=== PATIENT | male | born 1940 | race Caucasian/White ===

== ENCOUNTER 2016-11-05 15:44 | Emergency (ER) | payer MEDICARE ==
[2016-11-05 17:25] VITALS: TEMP 97
[2016-11-05] MEDS ORDERED: ONDANSETRON 4 MG/2 ML VIAL IVP STA (18:23)
[2016-11-05] MEDS ORDERED: SODIUM CHLORIDE 0.9% 1,000 ML IV STA (18:23)
[2016-11-05] MEDS ORDERED: HYDROmorphone 1 MG/ML 1 ML SYRINGE IVP STA ×2 (18:23→20:49)
--- NOTE | 2016-11-05 18:25 | ED ---
General Adult HPI - General Source: patient, RN notes reviewed Mode of arrival: ambulatory <Stephan Carroll - Last Filed: 11/05/16 18:24> <Jl Chaney - Last Filed: 11/05/16 20:47> - General Chief complaint: Abdominal Pain Stated complaint: left side pain Time Seen by Provider: 11/05/16 18:11 - History of Present Illness Initial comments: Patient is 75-year-old male who presents emergency room today with a chief complaint of abdominal pain that started yesterday morning. He does admit that he's felt more distended. He states that he has not had a bowel movement. He states he's had decreased flatulence. Patient currently rates pain 7/10 located left lower quadrant. He denies any other complaints. States never had some symptoms in the past. Patient denies any recent fever, chills, shortness of breath, chest pain, back pain, nausea or vomiting, numbness or tingling, dysuria or hematuria, constipation, headaches or visual changes, or any other complaints. (Stephan Carroll) - Related Data Home Medications Medication Instructions Recorded Confirmed Fluticasone/Salmeterol [Advair 1 puff INHALATION RT-BID 12/22/14 11/05/16 100-50 Diskus] Aspirin EC [Ecotrin Low Dose] 81 mg PO DAILY 11/05/16 11/05/16 Multivitamins, Thera [Multivitamin] 1 tab PO DAILY 11/05/16 11/05/16 Omeprazole 20 mg PO DAILY 11/05/16 11/05/16 Piroxicam 20 mg PO W/SUPPER 11/05/16 11/05/16 Testosterone Cypionate 250 mg IM Q42D 11/05/16 11/05/16 [Depo-Testosterone] metFORMIN HCL [Glucophage] 850 mg PO BID-W/MEALS 11/05/16 11/05/16 Previous Rx's Medication Instructions Recorded Hydrocodone/Acetaminophen [[place] 1 tab PO Q6HR PRN #20 tab 11/05/16 5-325] Ondansetron Odt [Zofran Odt] 4 mg PO Q8HR PRN #10 tab 11/05/16 Tamsulosin [Flomax] 0.4 mg PO DAILY #7 cap 11/05/16 Allergies Allergy/AdvReac Type Severity Reaction Status Date / Time No Known Allergies Allergy Verified 11/05/16 19:41 Review of Systems ROS Other: All systems not noted in ROS Statement are negative. <Stephan Carroll - Last Filed: 11/05/16 18:24> ROS Other: All systems not noted in ROS Statement are negative. <Jl Chaney - Last Filed: 11/05/16 20:47> ROS Statement: Those systems with pertinent positive or pertinent negative responses have been documented in the HPI. (Stephan Carroll) (Jl Chaney) Past Medical History Past Medical History: Osteoarthritis (OA) Additional Past Medical History / Comment(s): ASBESTOSIS, TINNITIS History of Any Multi-Drug Resistant Organisms: None Reported Past Surgical History: Cholecystectomy, Joint Replacement, Orthopedic Surgery Additional Past Surgical History / Comment(s): PINEDA KNEE,PINEDA ROT CUFF REPAIR, LEFT CATARACT SX Past Anesthesia/Blood Transfusion Reactions: Previous Problems w/ Anesthesia Additional Past Anesthesia/Blood Transfusion Reaction / Comment(s): SAT UP DURING TOT RT KNEE SURGERY Past Psychological History: No Psychological Hx Reported Smoking Status: Former smoker Past Alcohol Use History: None Reported Additional Past Alcohol Use History / Comment(s): QUIT SMOKING 1986, STARTED SMOKING AT AGE 18 Past Drug Use History: None Reported - Past Family History Mother Family Medical History: Congestive Heart Failure (CHF) Father Family Medical History: Cancer Brother(s) Family Medical History: Cancer Sister(s) Family Medical History: Cancer <Stephan Carroll - Last Filed: 11/05/16 18:24> General Exam <Stephan Carroll - Last Filed: 11/05/16 18:24> <Jl Chaney - Last Filed: 11/05/16 20:47> - General Exam Comments Initial Comments: General: The patient is awake and alert, in no distress, and does not appear acutely ill. Eye: Pupils are equal, round and reactive to light, extra-ocular movements are intact. No nystagmus. There is normal conjunctiva bilaterally. No signs of icterus. Ears, nose, mouth and throat: There are moist mucous membranes and no oral lesions. Neck: The neck is supple, there is no tenderness or JVD. Cardiovascular: There is a regular rate and rhythm. No murmur, rub or gallop is appreciated. Respiratory: Lungs are clear to auscultation, respirations are non-labored, breath sounds are equal. No wheezes, stridor, rales, or rhonchi. Gastrointestinal: Normal appearance and also. Abdomen soft on palpation. Patient does have tenderness and lower quadrant. No rebound tenderness. No guarding. No CVA tenderness. Musculoskeletal: Normal ROM, no tenderness. Strength 5/5. Sensation intact. Pulses equal bilaterally 2+. Neurological: A&O x 3. CN II-XII intact, There are no obvious motor or sensory deficits. Coordination appears grossly intact. Speech is normal. Skin: Skin is warm and dry and no rashes or lesions are noted. Psychiatric: Cooperative, appropriate mood & affect, normal judgment. (Stephan Carroll) Medical Decision Making <Stephan Carroll - Last Filed: 11/05/16 18:24> - Lab Data Result diagrams: 11/05/16 18:45 11/05/16 18:45 <Jl Chaney - Last Filed: 11/05/16 20:47> - Medical Decision Making Patient was endorsed to me by Stephan COSTA. Patient CT was revealed showed a left -sided ureteral calculi approximate 6 mm. Patient will be discharged with pain medication, Flomax, antinausea medication. Patient will follow-up with urologist. (Jl Chaney) - Lab Data Lab Results 11/05/16 11/05/16 11/05/16 Range/Units 18:45 18:45 18:45 WBC 13.9 H (3.8-10.6) k/uL RBC 4.59 (4.30-5.90) m/uL Hgb 14.8 (13.0-17.5) gm/dL Hct 44.1 (39.0-53.0) % MCV 96.1 (80.0-100.0) fL MCH 32.3 (25.0-35.0) pg MCHC 33.6 (31.0-37.0) g/dL RDW 11.8 (11.5-15.5) % Plt Count 164 (150-450) k/uL Neutrophils % 83 % Lymphocytes % 8 % Monocytes % 7 % Eosinophils % 1 % Basophils % 0 % Neutrophils # 11.6 H (1.3-7.7) k/uL Lymphocytes # 1.1 (1.0-4.8) k/uL Monocytes # 1.0 (0-1.0) k/uL Eosinophils # 0.1 (0-0.7) k/uL Basophils # 0.0 (0-0.2) k/uL Sodium 141 (137-145) mmol/L Potassium 4.6 (3.5-5.1) mmol/L Chloride 103 (98-107) mmol/L Carbon Dioxide 26 (22-30) mmol/L Anion Gap 12 mmol/L BUN 17 (9-20) mg/dL Creatinine 1.40 H (0.66-1.25) mg/dL Est GFR (MDRD) Af Amer >60 (>60 ml/min/1.73 sqM) Est GFR (MDRD) Non-Af 50 (>60 ml/min/1.73 sqM) Glucose 181 H (74-99) mg/dL Plasma Lactic Acid Eric 1.8 (0.7-2.0) mmol/L Calcium 11.0 H (8.4-10.2) mg/dL Total Bilirubin 0.8 (0.2-1.3) mg/dL AST 23 (17-59) U/L ALT 41 (21-72) U/L Alkaline Phosphatase 69 (38-126) U/L Total Protein 7.2 (6.3-8.2) g/dL Albumin 4.2 (3.5-5.0) g/dL Amylase <30 L (30-110) U/L Lipase 38 (23-300) U/L Urine Color Urine Appearance (Clear) Urine pH (5.0-8.0) Ur Specific [place] (1.001-1.035) Urine Protein (Negative) Urine Glucose (UA) (Negative) Urine Ketones (Negative) Urine Blood (Negative) Urine Nitrate (Negative) Urine Bilirubin (Negative) Urine Urobilinogen (<2.0) mg/dL Ur Leukocyte Esterase (Negative) 11/05/16 Range/Units 20:00 WBC (3.8-10.6) k/uL RBC (4.30-5.90) m/uL Hgb (13.0-17.5) gm/dL Hct (39.0-53.0) % MCV (80.0-100.0) fL MCH (25.0-35.0) pg MCHC (31.0-37.0) g/dL RDW (11.5-15.5) % Plt Count (150-450) k/uL Neutrophils % % Lymphocytes % % Monocytes % % Eosinophils % % Basophils % % Neutrophils # (1.3-7.7) k/uL Lymphocytes # (1.0-4.8) k/uL Monocytes # (0-1.0) k/uL Eosinophils # (0-0.7) k/uL Basophils # (0-0.2) k/uL Sodium (137-145) mmol/L Potassium (3.5-5.1) mmol/L Chloride (98-107) mmol/L Carbon Dioxide (22-30) mmol/L Anion Gap mmol/L BUN (9-20) mg/dL Creatinine (0.66-1.25) mg/dL Est GFR (MDRD) Af Amer (>60 ml/min/1.73 sqM) Est GFR (MDRD) Non-Af (>60 ml/min/1.73 sqM) Glucose (74-99) mg/dL Plasma Lactic Acid Eric (0.7-2.0) mmol/L Calcium (8.4-10.2) mg/dL Total Bilirubin (0.2-1.3) mg/dL AST (17-59) U/L ALT (21-72) U/L Alkaline Phosphatase (38-126) U/L Total Protein (6.3-8.2) g/dL Albumin (3.5-5.0) g/dL Amylase (30-110) U/L Lipase (23-300) U/L Urine Color Yellow Urine Appearance Clear (Clear) Urine pH 6.0 (5.0-8.0) Ur Specific [place] 1.028 (1.001-1.035) Urine Protein Trace H (Negative) Urine Glucose (UA) Trace H (Negative) Urine Ketones Trace H (Negative) Urine Blood Negative (Negative) Urine Nitrate Negative (Negative) Urine Bilirubin Negative (Negative) Urine Urobilinogen <2.0 (<2.0) mg/dL Ur Leukocyte Esterase Negative (Negative) (Jl Chaney) Disposition <Stephan Carroll - Last Filed: 11/05/16 18:24> Time of Disposition: 20:46 <Jl Chaney - Last Filed: 11/05/16 20:47> Clinical Impression: Ureteral calculi Disposition: HOME SELF-CARE Condition: Stable Instructions: Kidney Stones (ED) Additional Instructions: Please return to the Emergency Department if symptoms worsen or any other concerns. Prescriptions: Hydrocodone/Acetaminophen [Union 5-325] 1 tab PO Q6HR PRN #20 tab PRN Reason: Pain Ondansetron Odt [Zofran Odt] 4 mg PO Q8HR PRN #10 tab PRN Reason: Nausea Tamsulosin [Flomax] 0.4 mg PO DAILY #7 cap Referrals: Alexsander García MD [Primary Care Provider] - 1-2 days Jude Carmichael MD [STAFF PHYSICIAN] - 1-2 days
[2016-11-05 19:03] LABS: Basophils % (A) 0 %; CH 32.3; CHCM 33.7; Eosinophils # (A) 0.1 k/uL (0-0.7); Eosinophils % (A) 1 %; HCT 44.1 % (39.0-53.0); HDW 2.36; HGB 14.8 gm/dL (13.0-17.5); Luc # (Auto) 0.13; Luc % (Auto) 1; Lymphocytes # (A) 1.1 k/uL (1.0-4.8); Lymphocytes % (A) 8 %; MCH 32.3 pg (25.0-35.0); MCHC 33.6 g/dL (31.0-37.0); MCV 96.1 fL (80.0-100.0); Mean Platelet Volume 8.5; Monocytes % (A) 7 %; Neutrophils # (A) 11.6 k/uL (1.3-7.7); Neutrophils % (A) 83 %; RBC 4.59 m/uL (4.30-5.90); RDW 11.8 % (11.5-15.5); WBC 13.9 k/uL (3.8-10.6); WBC (Perox) 13.66
[2016-11-05] MEDS ORDERED: RX INFO: IV CONTRAST WAS GIVEN 1 EACH MISC MISCELLANE PRN (19:09)
[2016-11-05 19:20] LABS: ALT 41 U/L (21-72); AST 23 U/L (17-59); Alkaline Phosphatase 69 U/L (38-126); Amylase <30 U/L (30-110); Anion Gap 12 mmol/L; Blood Urea Nitrogen 17 mg/dL (9-20); Carbon Dioxide 26 mmol/L (22-30); Chloride 103 mmol/L (98-107); Glucose 181 mg/dL (74-99); Non-African American GFR(MDRD) 50 (>60 ml/min/1.73 sqM); Potassium 4.6 mmol/L (3.5-5.1); Sodium 141 mmol/L (137-145); Total Bilirubin 0.8 mg/dL (0.2-1.3); Total Protein 7.2 g/dL (6.3-8.2)
--- NOTE | 2016-11-05 19:27 | XR ---
EXAMINATION TYPE: XR abdomen complete w decub DATE OF EXAM: 11/05/2016 7:08 PM COMPARISON: NONE HISTORY: Pain Comparison 10/08/2015. Technique 4 views. FINDINGS: There is no sign of intestinal obstruction or pneumoperitoneum. The fecal pattern is normal. There ar e clips from cholecystectomy. Lung bases are clear. There is no evidence of a mass. I see no patholog ic calcifications over the kidneys. CONCLUSION: Nonacute abdomen. No change.
--- NOTE | 2016-11-05 20:18 | CT ---
EXAMINATION TYPE: CT abdomen pelvis w con DATE OF EXAM: 11/05/2016 8:05 PM COMPARISON: 10/08/2015 HISTORY: Generalized abdominal pain x [address] DLP: 876.10 mGycm Automated exposure control for dose reduction was used. TECHNIQUE: Helical acquisition of images was performed from the lung bases through the pelvis. CONTRAST: Performed without Oral Contrast and with IV Contrast, patient injected with 80 mL of Visipaque 320. FINDINGS: Lung bases are clear. There is no pleural effusion. Liver shows no focal defect. There are clips from cholecystectomy. Spleen appears normal. There is no pancreatic mass. There is no adrenal mass. There is mild left-sided hydronephrosis. There is mild left hydroureter and a 6 mm calcification on image 74 that appears to be a stone in the lower left ureter. There is no retroperitoneal adenopathy. There is no ascites. Bladder distends smoothly. There is no s ign of a pelvic mass. Appendix appears normal. There are are multiple bilateral renal small cortical cysts. I see no bony destructive process. There are spondylotic changes in the lumbar spine. IMPRESSION: THERE IS AN OBSTRUCTING STONE IN THE DISTAL LEFT URETER WITH LEFT-SIDED HYDRONEPHROSIS. THERE IS KAMRYN RING OF THE TINY STONE AT THE URETEROVESICAL JUNCTION ON THE LEFT SIDE COMPARED TO OLD EXAM. MULTIPLE SMALL BILATERAL RENAL CORTICAL CYSTS.
[2016-11-05 20:29] LABS: Appearance,Urine Clear (Clear); Bilirubin,Urine Negative (Negative); Glucose,Urine (UA) Trace (Negative); Ketones,Urine Trace (Negative); Leukocyte Esterase,Urine Negative (Negative); Nitrite,Urine Negative (Negative); Protein,Urine Trace (Negative); Specific Gravity,Urine 1.028 (1.001-1.035); UA Billing (MACRO vs. MICRO) CHEM; Urobilinogen,Urine <2.0 mg/dL (<2.0)
[2016-11-05 20:48] VITALS: RESP 16
[2016-11-05 21:01] VITALS: BP 148/69; PULSE 76
== END 2016-11-05 20:59 | disposition home or self-care (01) ==
LOC: EC 15:44
DX: N20.1 Calculus of ureter (principal); Z79.82 Long term (current) use of aspirin; Z79.84 Long term (current) use of oral hypoglycemic drugs; Z79.899 Other long term (current) drug therapy; Z87.891 Personal history of nicotine dependence; M19.90 Unspecified osteoarthritis, unspecified site; Z79.890 Hormone replacement therapy
CPT/HCPCS: 96374; 96376; 96375; 96361; 99284; 36415; 80053; 82150; 83605; 83690; 85025; 81003; 74020; 74177; Q9967; J2405; J1170

== ENCOUNTER → 2016-11-15 | Outpatient (CLI) | payer MEDICARE ==
--- NOTE | 2016-11-15 12:15 | XR ---
EXAMINATION TYPE: XR KUB DATE OF EXAM: 11/15/2016 10:56 AM COMPARISON: 10/08/2015 INDICATION: Stones TECHNIQUE: Single view abdomen supine view FINDINGS: There is a normal bowel gas pattern. Psoas margins are normal. No organomegaly is present. No suspicious calcifications are evident. IMPRESSION: 1. Unremarkable Abdomen
== END | disposition home or self-care (01) ==
LOC: RADXRMAIN 10:33
PROVIDERS: ATTEND Urology
DX: N20.1 Calculus of ureter (principal)
CPT/HCPCS: 74000

== ENCOUNTER 2016-11-20 12:25 | Day surgery (SDC) | payer MEDICARE ==
[~2016-11-20 12:25] MED LIST: LACTATED RINGERS 1,000 ML IV ONE; LIDOCAINE 1% 20 ML VIAL (10MG/ML) FOR IV START INTRADERMA PRN
[2016-11-20 12:52] VITALS: TEMP 97.9
--- NOTE | 2016-11-20 12:54 | XR ---
Abdomen HISTORY: Ureteral calculus Frontal view of the abdomen submitted and correlated to prior exam 15 November 2016 7 8mm calculus is not present within the distal left ureter as on prior exam. Lung bases are not incl uded on the exam. Surgical clips in the right upper quadrant. No other significant interval change. IMPRESSION: Distal left ureteral calculus is suspected.
[2016-11-20 13:15] LABS: Glucose,Whole Blood 102 mg/dL (75-99)
[2016-11-20] MEDS ORDERED: LIDOCAINE 1% INJ 10MG/ML (20 ML MDV) ONE (13:50)
[2016-11-20] MEDS ORDERED: FUROSEMIDE 10 MG/ML 2 ML VIAL ONE (13:50)
[2016-11-20] MEDS ORDERED: PROPOFOL 10 MG/ML 20 ML VIAL IV ONE (13:50)
[2016-11-20] MEDS ORDERED: MIDAZOLAM 2 MG/2 ML VIAL ONE (13:50)
[2016-11-20] MEDS ORDERED: fentaNYL (PF) 50 MCG/ML 2 ML AMP ONE (13:50)
--- NOTE | 2016-11-20 14:30 | P.OP ---
Date of Procedure: 11/20/16 Preoperative Diagnosis: left distal ureteral stone Postoperative Diagnosis: same Procedure(s) Performed: eswl left 3000 at 6 Anesthesia: MAC Surgeon: Clifford Pollock Estimated Blood Loss (ml): 0 Pathology: none sent Condition: stable Disposition: PACU Indications for Procedure: The patient is a 76 yo male with a 6 mm distal left ureteal stone, 6 mm who comes for eswl left Description of Procedure: The patient is brought to the lithotripsy suite. He is given iv sedation on the lithotripsy table. The stone is seen in 2 views of flouroscopy. #000 shocks at energy level 6 are given. 10 mg of lasix is given. the stone appears to break. the patient is awakened and discharged home upon recovery. He will fu in the office in 1 week
[2016-11-20 15:14] VITALS: RESP 18
[2016-11-20 16:20] VITALS: BP 130/76; PULSE 76
== END 2016-11-20 16:18 | disposition home or self-care (01) ==
LOC: ORWHC2ENDO 12:25
PROVIDERS: ATTEND Urology
DX: N20.1 Calculus of ureter (principal); R97.20 Elevated prostate specific antigen [PSA]; N40.1 Benign prostatic hyperplasia with lower urinary tract symptoms; N52.9 Male erectile dysfunction, unspecified; Z79.899 Other long term (current) drug therapy; Z87.891 Personal history of nicotine dependence; E11.9 Type 2 diabetes mellitus without complications; K21.9 Gastro-esophageal reflux disease without esophagitis; Z79.84 Long term (current) use of oral hypoglycemic drugs; Z79.82 Long term (current) use of aspirin; Z79.891 Long term (current) use of opiate analgesic; Z79.51 Long term (current) use of inhaled steroids
CPT/HCPCS: 74000; 50590; J2250; J1940; J2001; J3010; J2704; 99153

== ENCOUNTER → 2016-11-21 | Outpatient (CLI) | payer MEDICARE ==
--- NOTE | 2016-11-21 13:54 | XR ---
EXAMINATION TYPE: XR abdomen 1V DATE OF EXAM: 11/21/2016 1:35 PM COMPARISON: Prior exam 11/20/2016 INDICATION: Stones TECHNIQUE: Single view abdomen frontal projection FINDINGS: There is a normal bowel gas pattern. Psoas margins are normal. No organomegaly is present. Cholecystectomy clips in right upper quadrant. Suspicious calcifications are not identified over the kidneys or expected ureters. The faint density within the left distal hemipelvis previously suggested be a ureteral stone appears stable. IMPRESSION: 1. Unremarkable Abdomen, findings appear stable.
== END | disposition home or self-care (01) ==
LOC: RADXRMAIN 13:13
PROVIDERS: ATTEND Urology
DX: N20.1 Calculus of ureter (principal)
CPT/HCPCS: 74000

== ENCOUNTER 2017-11-21 02:45 | Inpatient (IN) | payer MEDICARE ==
[2017-11-21] MEDS ORDERED: ONDANSETRON 4 MG/2 ML VIAL IVP STA (02:57)
[2017-11-21] MEDS ORDERED: MORPHINE SULFATE 2 MG/ML SYRINGE IV STA (02:57)
[2017-11-21] MEDS ORDERED: RX INFO: IV CONTRAST WAS GIVEN 1 EACH MISC MISCELLANE PRN (02:57)
[2017-11-21] MEDS ORDERED: SODIUM CHLORIDE 0.9% 500 ML IV STA (02:57)
[2017-11-21] MEDS ORDERED: ACETAMINOPHEN TAB 325 MG TAB PO STA (02:58)
--- NOTE | 2017-11-21 03:02 | ED ---
General Adult HPI - General Source: patient, EMS, RN notes reviewed Mode of arrival: EMS Limitations: no limitations <Jl Chnaey - Last Filed: 11/21/17 03:35> <Lawrence Gustafson - Last Filed: 11/21/17 05:11> - General Chief complaint: Fall Stated complaint: Low back pain Time Seen by Provider: 11/21/17 02:57 - History of Present Illness Initial comments: This a 77 year male presents emergency department via EMS with multiple complaints. Patient states over the last 4-5 days been having increasing back pain saw his primary care physician who ordered x-rays and found that he had some degenerative changes and told him that he would wait for official radiology reading. Discussed possibility of physical therapy. Patient states he had no injury or trauma prior chills tonight. He denies any pain that radiates into his legs denies saddle anesthesias or lower shunted paresthesias. Patient states pain is worse with movement. He states this evening because the pain he took [place] and states shortly after he had a fall in which he states he slid underneath his bed he is not exactly sure how he got there. He denies headache, dizziness, chest pain or shortness of breath. Patient states he just feels very weak and achy. He denies any known head injury. Patient denies fever or chills but has known fever here. He denies any URI symptoms denies dysuria, hematuria, diarrhea constipation. He does complain of mild left lower quadrant abdominal pain. (Jl Chaney) - Related Data Home Medications Medication Instructions Recorded Confirmed Fluticasone/Salmeterol [Advair 1 puff INHALATION RT-BID 12/22/14 11/20/16 100-50 Diskus] Aspirin EC [Ecotrin Low Dose] 81 mg PO DAILY 11/05/16 11/20/16 Multivitamins, Thera [Multivitamin] 1 tab PO DAILY 11/05/16 11/20/16 Omeprazole 20 mg PO DAILY 11/05/16 11/20/16 Piroxicam 20 mg PO W/SUPPER 11/05/16 11/20/16 Testosterone Cypionate 250 mg IM Q42D 11/05/16 11/20/16 [Depo-Testosterone] metFORMIN HCL [Glucophage] 850 mg PO BID-W/MEALS 11/05/16 11/20/16 Previous Rx's Medication Instructions Recorded Hydrocodone/Acetaminophen [[place] 1 tab PO Q6HR PRN #20 tab 11/05/16 5-325] Ondansetron Odt [Zofran Odt] 4 mg PO Q8HR PRN #10 tab 11/05/16 Tamsulosin [Flomax] 0.4 mg PO DAILY #7 cap 11/05/16 Tamsulosin HCl [Flomax] 0.4 mg PO DAILY #15 cap.er.24h 11/20/16 Allergies Allergy/AdvReac Type Severity Reaction Status Date / Time No Known Allergies Allergy Verified 11/21/17 02:58 Review of Systems ROS Other: All systems not noted in ROS Statement are negative. <Jl Chaney - Last Filed: 11/21/17 03:35> ROS Other: All systems not noted in ROS Statement are negative. <Lawrence Gustafson - Last Filed: 11/21/17 05:11> ROS Statement: Those systems with pertinent positive or pertinent negative responses have been documented in the HPI. Past Medical History Past Medical History: Diabetes Mellitus, Eye Disorder, Osteoarthritis (OA), Respiratory Disorder Additional Past Medical History / Comment(s): ASBESTOSIS, TINNITIS, KIDNEY STONE LEFT SIDE-6MM, History of Any Multi-Drug Resistant Organisms: None Reported Past Surgical History: Cholecystectomy, Joint Replacement, Orthopedic Surgery Additional Past Surgical History / Comment(s): PINEDA KNEE,PINEDA ROT CUFF REPAIR, LEFT CATARACT SX, Past Anesthesia/Blood Transfusion Reactions: Previous Problems w/ Anesthesia Additional Past Anesthesia/Blood Transfusion Reaction / Comment(s): SAT UP DURING TOT RT KNEE SURGERY Past Psychological History: No Psychological Hx Reported Smoking Status: Former smoker Past Alcohol Use History: Occasional Past Drug Use History: None Reported - Past Family History Mother Family Medical History: Congestive Heart Failure (CHF) Father Family Medical History: Cancer Brother(s) Family Medical History: Cancer Sister(s) Family Medical History: Cancer <Jl Chaney - Last Filed: 11/21/17 03:35> General Exam Limitations: no limitations General appearance: alert, in no apparent distress Head exam: Present: atraumatic, normocephalic, normal inspection Eye exam: Present: normal appearance, PERRL, EOMI. Absent: scleral icterus, conjunctival injection, periorbital swelling ENT exam: Present: normal exam, normal oropharynx, mucous membranes moist Neck exam: Present: normal inspection, full ROM. Absent: tenderness, meningismus, lymphadenopathy Respiratory exam: Present: normal lung sounds bilaterally. Absent: respiratory distress, wheezes, rales, rhonchi, stridor Cardiovascular Exam: Present: regular rate, normal rhythm, normal heart sounds. Absent: systolic murmur, diastolic murmur, rubs, gallop, clicks GI/Abdominal exam: Present: soft, tenderness (moderate left lower quadrant tenderness), normal bowel sounds. Absent: distended, guarding, rebound, rigid Back exam: Present: full ROM, tenderness, paraspinal tenderness. Absent: CVA tenderness (R), CVA tenderness (L), vertebral tenderness Neurological exam: Present: alert, oriented X3, CN II-XII intact, reflexes normal. Absent: motor sensory deficit Skin exam: Present: warm, dry, intact, normal color. Absent: rash <Jl Chaney - Last Filed: 11/21/17 03:35> Vital Signs 11/21/17 11/21/17 02:49 04:35 Temperature 100.1 F H 99.0 F Pulse Rate 56 L 58 L Respiratory 18 17 Rate Blood Pressure 132/58 119/55 O2 Sat by Pulse 89 L 94 L Oximetry EKG Findings - EKG Comments: EKG Findings:: EKG performed at 3:28 sinus bradycardia with left axis deviation and right bundle branch block rate of 54 FL 190 QRS 1:30 QT/QTC 494/468 <Jl Chaney - Last Filed: 11/21/17 03:35> Medical Decision Making - Lab Data Result diagrams: 11/21/17 03:02 11/21/17 03:02 <Jl Chaney - Last Filed: 11/21/17 03:35> - Lab Data Result diagrams: 11/21/17 03:02 11/21/17 03:02 - Radiology Data Radiology results: report reviewed (Computed tomography scan abdomen pelvis does show a urinary bladder calculi.), image reviewed (Chest x-ray shows no acute process.) <Lawrence Gustafson - Last Filed: 11/21/17 05:11> - Medical Decision Making Patient reevaluated and resting comfortably in bed. Patient does not meet sepsis criteria. Case was discussed with Dr. nair, who will admit for Dr. Rees. (Lawrence Gustafson) - Lab Data Lab Results 11/21/17 11/21/17 11/21/17 Range/Units 03:02 03:02 03:02 WBC 21.3 H (3.8-10.6) k/uL RBC 4.36 (4.30-5.90) m/uL Hgb 14.1 (13.0-17.5) gm/dL Hct 42.1 (39.0-53.0) % MCV 96.5 (80.0-100.0) fL MCH 32.2 (25.0-35.0) pg MCHC 33.4 (31.0-37.0) g/dL RDW 11.7 (11.5-15.5) % Plt Count 148 L (150-450) k/uL Neutrophils % 87 % Lymphocytes % 5 % Monocytes % 6 % Eosinophils % 1 % Basophils % 0 % Neutrophils # 18.5 H (1.3-7.7) k/uL Lymphocytes # 1.1 (1.0-4.8) k/uL Monocytes # 1.2 H (0-1.0) k/uL Eosinophils # 0.2 (0-0.7) k/uL Basophils # 0.1 (0-0.2) k/uL PT (9.0-12.0) sec INR (<1.2) APTT (22.0-30.0) sec Sodium 139 (137-145) mmol/L Potassium 4.6 (3.5-5.1) mmol/L Chloride 102 (98-107) mmol/L Carbon Dioxide 24 (22-30) mmol/L Anion Gap 13 mmol/L BUN 22 H (9-20) mg/dL Creatinine 1.20 (0.66-1.25) mg/dL Est GFR (MDRD) Af Amer >60 (>60 ml/min/1.73 sqM) Est GFR (MDRD) Non-Af 59 (>60 ml/min/1.73 sqM) Glucose 202 H (74-99) mg/dL Plasma Lactic Acid Eric 2.1 H* (0.7-2.0) mmol/L Calcium 9.5 (8.4-10.2) mg/dL Total Bilirubin 0.8 (0.2-1.3) mg/dL AST 22 (17-59) U/L ALT 43 (21-72) U/L Alkaline Phosphatase 61 (38-126) U/L Troponin I (0.000-0.034) ng/mL Total Protein 6.8 (6.3-8.2) g/dL Albumin 3.9 (3.5-5.0) g/dL Amylase <30 L (30-110) U/L Lipase 27 (23-300) U/L Urine Color Urine Appearance (Clear) Urine pH (5.0-8.0) Ur Specific [place] (1.001-1.035) Urine Protein (Negative) Urine Glucose (UA) (Negative) Urine Ketones (Negative) Urine Blood (Negative) Urine Nitrite (Negative) Urine Bilirubin (Negative) Urine Urobilinogen (<2.0) mg/dL Ur Leukocyte Esterase (Negative) Urine RBC (0-5) /hpf Urine WBC (0-5) /hpf Urine Bacteria (None) /hpf Urine Mucus (None) /hpf Influenza Type A RNA (Not Detectd) Influenza Type B (PCR) (Not Detectd) 11/21/17 11/21/17 11/21/17 Range/Units 03:02 03:02 03:02 WBC (3.8-10.6) k/uL RBC (4.30-5.90) m/uL Hgb (13.0-17.5) gm/dL Hct (39.0-53.0) % MCV (80.0-100.0) fL MCH (25.0-35.0) pg MCHC (31.0-37.0) g/dL RDW (11.5-15.5) % Plt Count (150-450) k/uL Neutrophils % % Lymphocytes % % Monocytes % % Eosinophils % % Basophils % % Neutrophils # (1.3-7.7) k/uL Lymphocytes # (1.0-4.8) k/uL Monocytes # (0-1.0) k/uL Eosinophils # (0-0.7) k/uL Basophils # (0-0.2) k/uL PT 10.9 (9.0-12.0) sec INR 1.1 (<1.2) APTT 24.5 (22.0-30.0) sec Sodium (137-145) mmol/L Potassium (3.5-5.1) mmol/L Chloride (98-107) mmol/L Carbon Dioxide (22-30) mmol/L Anion Gap mmol/L BUN (9-20) mg/dL Creatinine (0.66-1.25) mg/dL Est GFR (MDRD) Af Amer (>60 ml/min/1.73 sqM) Est GFR (MDRD) Non-Af (>60 ml/min/1.73 sqM) Glucose (74-99) mg/dL Plasma Lactic Acid Eric (0.7-2.0) mmol/L Calcium (8.4-10.2) mg/dL Total Bilirubin (0.2-1.3) mg/dL AST (17-59) U/L ALT (21-72) U/L Alkaline Phosphatase (38-126) U/L Troponin I <0.012 (0.000-0.034) ng/mL Total Protein (6.3-8.2) g/dL Albumin (3.5-5.0) g/dL Amylase (30-110) U/L Lipase (23-300) U/L Urine Color Urine Appearance (Clear) Urine pH (5.0-8.0) Ur Specific [place] (1.001-1.035) Urine Protein (Negative) Urine Glucose (UA) (Negative) Urine Ketones (Negative) Urine Blood (Negative) Urine Nitrite (Negative) Urine Bilirubin (Negative) Urine Urobilinogen (<2.0) mg/dL Ur Leukocyte Esterase (Negative) Urine RBC (0-5) /hpf Urine WBC (0-5) /hpf Urine Bacteria (None) /hpf Urine Mucus (None) /hpf Influenza Type A RNA Not Detected (Not Detectd) Influenza Type B (PCR) Not Detected (Not Detectd) 11/21/17 Range/Units 03:08 WBC (3.8-10.6) k/uL RBC (4.30-5.90) m/uL Hgb (13.0-17.5) gm/dL Hct (39.0-53.0) % MCV (80.0-100.0) fL MCH (25.0-35.0) pg MCHC (31.0-37.0) g/dL RDW (11.5-15.5) % Plt Count (150-450) k/uL Neutrophils % % Lymphocytes % % Monocytes % % Eosinophils % % Basophils % % Neutrophils # (1.3-7.7) k/uL Lymphocytes # (1.0-4.8) k/uL Monocytes # (0-1.0) k/uL Eosinophils # (0-0.7) k/uL Basophils # (0-0.2) k/uL PT (9.0-12.0) sec INR (<1.2) APTT (22.0-30.0) sec Sodium (137-145) mmol/L Potassium (3.5-5.1) mmol/L Chloride (98-107) mmol/L Carbon Dioxide (22-30) mmol/L Anion Gap mmol/L BUN (9-20) mg/dL Creatinine (0.66-1.25) mg/dL Est GFR (MDRD) Af Amer (>60 ml/min/1.73 sqM) Est GFR (MDRD) Non-Af (>60 ml/min/1.73 sqM) Glucose (74-99) mg/dL Plasma Lactic Acid Eric (0.7-2.0) mmol/L Calcium (8.4-10.2) mg/dL Total Bilirubin (0.2-1.3) mg/dL AST (17-59) U/L ALT (21-72) U/L Alkaline Phosphatase (38-126) U/L Troponin I (0.000-0.034) ng/mL Total Protein (6.3-8.2) g/dL Albumin (3.5-5.0) g/dL Amylase (30-110) U/L Lipase (23-300) U/L Urine Color Yellow Urine Appearance Cloudy (Clear) Urine pH 5.5 (5.0-8.0) Ur Specific [place] 1.023 (1.001-1.035) Urine Protein 2+ H (Negative) Urine Glucose (UA) Negative (Negative) Urine Ketones Trace H (Negative) Urine Blood Trace H (Negative) Urine Nitrite Positive (Negative) Urine Bilirubin Negative (Negative) Urine Urobilinogen 2.0 (<2.0) mg/dL Ur Leukocyte Esterase Moderate H (Negative) Urine RBC 3 (0-5) /hpf Urine WBC 50 H (0-5) /hpf Urine Bacteria Many H (None) /hpf Urine Mucus Many H (None) /hpf Influenza Type A RNA (Not Detectd) Influenza Type B (PCR) (Not Detectd) Disposition <Jl Chaney - Last Filed: 11/21/17 03:35> Decision Time: 05:10 <Lawrence Gustafson - Last Filed: 11/21/17 05:11> Clinical Impression: Fall, UTI (urinary tract infection) Disposition: ADMITTED IP TO THIS HOSP Referrals: Alexsander García MD [Primary Care Provider] - 1-2 days
[2017-11-21 03:20] LABS: Basophils # (A) 0.1 k/uL (0-0.2); Basophils % (A) 0 %; Eosinophils # (A) 0.2 k/uL (0-0.7); Eosinophils % (A) 1 %; HCT 42.1 % (39.0-53.0); HGB 14.1 gm/dL (13.0-17.5); Lymphocytes # (A) 1.1 k/uL (1.0-4.8); Lymphocytes % (A) 5 %; MCH 32.2 pg (25.0-35.0); MCHC 33.4 g/dL (31.0-37.0); MCV 96.5 fL (80.0-100.0); Mean Platelet Volume 9.2; Monocytes # (A) 1.2 k/uL (0-1.0); Monocytes % (A) 6 %; Neutrophils # (A) 18.5 k/uL (1.3-7.7); Neutrophils % (A) 87 %; Platelet Count 148 k/uL (150-450); RBC 4.36 m/uL (4.30-5.90); RDW 11.7 % (11.5-15.5); WBC 21.3 k/uL (3.8-10.6)
[2017-11-21 03:23] LABS: INR 1.1 (<1.2); Partial Thromboplastin Time 24.5 sec (22.0-30.0); Prothrombin Time 10.9 sec (9.0-12.0)
[2017-11-21 03:26] LABS: ALT 43 U/L (21-72); AST 22 U/L (17-59); Albumin 3.9 g/dL (3.5-5.0); Alkaline Phosphatase 61 U/L (38-126); Amylase <30 U/L (30-110); Anion Gap 13 mmol/L; Blood Urea Nitrogen 22 mg/dL (9-20); Calcium 9.5 mg/dL (8.4-10.2); Carbon Dioxide 24 mmol/L (22-30); Chloride 102 mmol/L (98-107); Glucose 202 mg/dL (74-99); Lipase 27 U/L (23-300); Sodium 139 mmol/L (137-145); Total Bilirubin 0.8 mg/dL (0.2-1.3); Total Protein 6.8 g/dL (6.3-8.2)
[2017-11-21 03:28] LABS: Potassium 4.6 mmol/L (3.5-5.1)
[2017-11-21 03:33] LABS: Appearance,Urine Cloudy (Clear); Bacteria,Urine Many /hpf; Bilirubin,Urine Negative (Negative); Blood,Urine Trace (Negative); Color,Urine Yellow; Glucose,Urine (UA) Negative (Negative); Ketones,Urine Trace (Negative); Leukocyte Esterase,Urine Moderate (Negative); Mucus,Urine Many /hpf; Nitrite,Urine Positive (Negative); PH, Urine 5.5 (5.0-8.0); Protein,Urine 2+ (Negative); RBC,Urine 3 /hpf (0-5); Specific Gravity,Urine 1.023 (1.001-1.035); WBC,Urine 50 /hpf (0-5)
[2017-11-21] MEDS ORDERED: LEVOFLOXACIN 750MG-D5W PMX 750 MG in DEXTROSE/WATER 1 150ML.BAG IVPB STA (03:34)
[2017-11-21] MEDS ORDERED: SODIUM CHLORIDE 0.9% 2,000 ML IV ONE (03:34)
--- NOTE | 2017-11-21 04:14 | XR ---
EXAM: XR Chest, 2 Views CLINICAL HISTORY: Reason: Cough/pain TECHNIQUE: Frontal and lateral views of the chest. COMPARISON: No relevant prior studies available. FINDINGS: Lungs: Unremarkable. No consolidation. Pleural space: Bilateral nodular pleural thickening better seen on accompanying CT. No significant pleural effusion or pneumothorax. Heart: Unremarkable. No cardiomegaly. Mediastinum: Unremarkable. Bones/joints: No acute osseous abnormality. IMPRESSION: No acute cardiopulmonary process.
--- NOTE | 2017-11-21 04:41 | CT ---
EXAM: CT Abdomen and Pelvis With Intravenous Contrast CLINICAL HISTORY: Reason: abdominal pain TECHNIQUE: Axial computed tomography images of the abdomen and pelvis with intravenous contrast. CTDI is 13.70, 13.70 mGy and DLP is 1268.40 mGy-cm. This CT exam was performed using one or more of the following dose reduction techniques: automated exposure control, adjustment of the mA and/or kV according to patient size, and/or use of iterative reconstruction technique. COMPARISON: 11/05/2016 FINDINGS: Lower thorax: Nodular bilateral pleural thickening. Elevated left hemidiaphragm. ABDOMEN: Liver: Liver is upper limits of normal in size. Gallbladder and bile ducts: The gallbladder is absent. Pancreas: Unremarkable. Spleen: Unremarkable. Adrenals: Unremarkable. Kidneys and ureters: Small hypoattenuating bilateral renal lesions, possibly cysts. Stable mild nonspecific bilateral perinephric stranding. No hydroureteronephrosis. Stomach and bowel: Unremarkable. Bowel is nondilated. Appendix: No findings to suggest acute appendicitis. PELVIS: Bladder: There are now multiple calculi in the urinary bladder measuring up to 8 mm. Reproductive: Unremarkable as visualized. ABDOMEN and PELVIS: Intraperitoneal space: Unremarkable. No free air. Bones/joints: No acute osseous abnormality. Degenerative changes of the spine. Soft tissues: Small fat-containing periumbilical and left inguinal hernias. Vasculature: Atherosclerosis of the abdominal aorta. No abdominal aortic aneurysm or dissection. Lymph nodes: Unremarkable. IMPRESSION: Urinary bladder calculi measuring up to 8 mm. No hydroureteronephrosis.
[2017-11-21] MEDS ORDERED: NALOXONE 0.4 MG/ML 1 ML VIAL IV PRN (05:13)
[2017-11-21] MEDS ORDERED: LEVOFLOXACIN 750MG-D5W PMX 750 MG in DEXTROSE/WATER 1 150ML.BAG IVPB SCH (05:15)
[2017-11-21 06:08] VITALS: BMI 29.9
[2017-11-21] MEDS ORDERED: HYDROcodone/APAP 5-325MG 1 EACH TAB PO PRN (10:19)
[2017-11-21] MEDS: SODIUM CHLORIDE 0.9% 1,000 ML IV SCH ×3 (11:36→23:16)
[2017-11-21] MEDS: ENOXAPARIN 40 MG/0.4 ML SYRINGE SQ SCH (11:36)
--- NOTE | 2017-11-21 12:18 | P.GSCN ---
History of Present Illness Consult date: 11/21/17 Reason for Consult: Urinary tract infection and bladder calculus History of present illness: The patient is a 77-year-old male admitted through the emergency room for evaluation of syncopal episode possibly related to sepsis from a urinary tract infection. The patient says that he has had back pain when leaning over or bending to tie his shoes for several weeks. He has also noted an odor to his urine and increased urinary urgency. He says that his urine has been somewhat dark colored but denied any gross hematuria. He had experienced no fever or chills prior to presenting to the emergency room. Last night he apparently found himself under the bed and called the EMS and was transported to the emergency room for evaluation. He was noted to have a temperature of 100.1. His white blood count was 21,300. BUN/creatinine was 22/1.20. Lactic acid was 2.1. Urinalysis was positive nitrite and showed 50 white cells and many bacteria and 3 red cells per high-powered field. Computed tomography scan of the abdomen and pelvis without IV contrast was interpreted as showing an 8 mm calculus present within the bladder. No hydronephrosis was noted. Since admission the patient's blood pressure has been stable and he remains alert and oriented. He has also remained afebrile. The patient is well known to me but has not been seen since 01/2017. He developed left flank pain secondary to a distal left ureteral calculus which was treated with ESWL by Dr. Pollock in 11/2016. The patient never recalls passing any calculus fragments but has not had any subsequent left flank pain. He says he usually voids every 3-4 hours during the day and 2 times at night and this pattern has not changed recently. Review of Systems - Constitutional Reports lethargy, Denies chills, Denies fever - Cardiovascular Reports syncope, Denies chest pain, Denies shortness of breath - Respiratory Denies cough, Denies wheezing - Gastrointestinal Reports abdominal pain (Occasional left lower quadrant discomfort) - Genitourinary Reports as per HPI Past Medical History Past Medical History: Diabetes Mellitus, Eye Disorder, Osteoarthritis (OA), Respiratory Disorder Additional Past Medical History / Comment(s): ASBESTOSIS, TINNITIS, KIDNEY STONE LEFT SIDE-6MM, Type 2 DM History of Any Multi-Drug Resistant Organisms: None Reported Past Surgical History: Cholecystectomy, Joint Replacement, Orthopedic Surgery Additional Past Surgical History / Comment(s): PINEDA KNEE,PINEDA ROT CUFF REPAIR, LEFT CATARACT SX, ESWL left ureteral calculus 11/2016 Past Anesthesia/Blood Transfusion Reactions: Previous Problems w/ Anesthesia Additional Past Anesthesia/Blood Transfusion Reaction / Comm: SAT UP DURING TOT RT KNEE SURGERY Past Psychological History: No Psychological Hx Reported Smoking Status: Former smoker Past Alcohol Use History: Occasional Additional Past Alcohol Use History / Comment(s): QUIT SMOKING 1986, STARTED SMOKING AT AGE 18 Past Drug Use History: None Reported - Past Family History Mother Family Medical History: Congestive Heart Failure (CHF) Father Family Medical History: Cancer Brother(s) Family Medical History: Cancer Sister(s) Family Medical History: Cancer Medications and Allergies Home Medications Medication Instructions Recorded Confirmed Type Piroxicam 20 mg PO W/SUPPER 11/05/16 11/21/17 History Testosterone Cypionate 250 mg IM Q42D 11/05/16 11/21/17 History [Depo-Testosterone] Fluticasone Nasal [place] [Flonase 1 - 2 spray EA NOSTRIL DAILY PRN 11/21/1711/21 History Nasal [place]] HYDROcodone/APAP 5-325MG [[place] 1 tab PO Q6H PRN 11/21/17 11/21/17 History 5-325] metFORMIN HCL [Glucophage] 1,000 mg PO BID 11/21/17 11/21/17 History Allergies Allergy/AdvReac Type Severity Reaction Status Date / Time No Known Allergies Allergy Verified 11/21/17 07:34 Surgical - Exam Vital Signs Temp Pulse Resp BP Pulse Ox 100.1 F H 56 L 18 132/58 89 L 11/21/17 02:49 11/21/17 02:49 11/21/17 02:49 11/21/17 02:49 11/21/17 02:49 - General well developed, well nourished, no distress, no pain - Neck no masses, no lymphadectomy - Respiratory normal respiratory effort - Abdomen Abdomen: soft, non tender, no organomegaly, no masses Hernia: none - Genitourinary normal penis with no external lesions, testicles non-tender Results - Labs 11/21/17 03:02 11/21/17 03:02 Abnormal Lab Results - Last 24 Hours (Table) 11/21/17 11/21/17 11/21/17 Range/Units 03:02 03:02 03:02 WBC 21.3 H (3.8-10.6) k/uL Plt Count 148 L (150-450) k/uL Neutrophils # 18.5 H (1.3-7.7) k/uL Monocytes # 1.2 H (0-1.0) k/uL BUN 22 H (9-20) mg/dL Glucose 202 H (74-99) mg/dL Plasma Lactic Acid Eric 2.1 H* (0.7-2.0) mmol/L Amylase <30 L (30-110) U/L Urine Protein (Negative) Urine Ketones (Negative) Urine Blood (Negative) Ur Leukocyte Esterase (Negative) Urine WBC (0-5) /hpf Urine Bacteria (None) /hpf Urine Mucus (None) /hpf 11/21/17 11/21/17 Range/Units 03:08 06:35 WBC (3.8-10.6) k/uL Plt Count (150-450) k/uL Neutrophils # (1.3-7.7) k/uL Monocytes # (0-1.0) k/uL BUN (9-20) mg/dL Glucose (74-99) mg/dL Plasma Lactic Acid Eric 2.3 H* (0.7-2.0) mmol/L Amylase (30-110) U/L Urine Protein 2+ H (Negative) Urine Ketones Trace H (Negative) Urine Blood Trace H (Negative) Ur Leukocyte Esterase Moderate H (Negative) Urine WBC 50 H (0-5) /hpf Urine Bacteria Many H (None) /hpf Urine Mucus Many H (None) /hpf Diabetes panel 11/21/17 Range/Units 03:02 Sodium 139 (137-145) mmol/L Potassium 4.6 (3.5-5.1) mmol/L Chloride 102 (98-107) mmol/L Carbon Dioxide 24 (22-30) mmol/L BUN 22 H (9-20) mg/dL Creatinine 1.20 (0.66-1.25) mg/dL Glucose 202 H (74-99) mg/dL Calcium 9.5 (8.4-10.2) mg/dL AST 22 (17-59) U/L ALT 43 (21-72) U/L Alkaline Phosphatase 61 (38-126) U/L Total Protein 6.8 (6.3-8.2) g/dL Albumin 3.9 (3.5-5.0) g/dL Calcium panel 11/21/17 Range/Units 03:02 Calcium 9.5 (8.4-10.2) mg/dL Albumin 3.9 (3.5-5.0) g/dL Pituitary panel 11/21/17 Range/Units 03:02 Sodium 139 (137-145) mmol/L Potassium 4.6 (3.5-5.1) mmol/L Chloride 102 (98-107) mmol/L Carbon Dioxide 24 (22-30) mmol/L BUN 22 H (9-20) mg/dL Creatinine 1.20 (0.66-1.25) mg/dL Glucose 202 H (74-99) mg/dL Calcium 9.5 (8.4-10.2) mg/dL Adrenal panel 11/21/17 Range/Units 03:02 Sodium 139 (137-145) mmol/L Potassium 4.6 (3.5-5.1) mmol/L Chloride 102 (98-107) mmol/L Carbon Dioxide 24 (22-30) mmol/L BUN 22 H (9-20) mg/dL Creatinine 1.20 (0.66-1.25) mg/dL Glucose 202 H (74-99) mg/dL Calcium 9.5 (8.4-10.2) mg/dL Total Bilirubin 0.8 (0.2-1.3) mg/dL AST 22 (17-59) U/L ALT 43 (21-72) U/L Alkaline Phosphatase 61 (38-126) U/L Total Protein 6.8 (6.3-8.2) g/dL Albumin 3.9 (3.5-5.0) g/dL Assessment and Plan (1) UTI (urinary tract infection) Narrative/Plan: The patient's urinalysis is consistent with an acute urinary tract infection which may be a contributory factor as far as his fever, elevated white blood count and lactic acidosis. He is currently on Levaquin which is a reasonable initial antibiotic as he has not been on any other antibiotics recently. Current Visit: Yes Status: Acute Code(s): N39.0 - URINARY TRACT INFECTION, SITE NOT SPECIFIED SNOMED Code(s): 22181470 (2) Ureteral calculus, left Narrative/Plan: I personally reviewed the patient's computed tomography scan and it's unclear whether he has a calculus in the bladder or within the distal left ureter. He has no left hydronephrosis and in view of this further observation is reasonable as long as he remains afebrile. The patient will be started on tamsulosin and has been encouraged to strain his urine. If he develops a fever or other signs of sepsis then renal ultrasound may be an option to ensure that he has not developed left hydronephrosis. Current Visit: Yes Status: Acute Code(s): N20.1 - CALCULUS OF URETER SNOMED Code(s): 68761424
--- NOTE | 2017-11-21 13:34 | HP ---
HISTORY AND PHYSICAL DATE OF ADMISSION: 11/21/2017 PRESENTING COMPLAINT: Acute back pain. HISTORY OF PRESENTING COMPLAINT: This is a 77-year-old patient of Dr. García. Chronic stable medical conditions include diabetes, asbestosis, tinnitus. The patient has had low back pain for a few weeks and able to get about. Last night patient does not remember how he fell, got under the bed, unable to pull himself actually, finally got to the phone. Did call a sister and then he did call 911. He was having more low back pain, finding it difficult to walk. The pain is radiating down both legs. No trouble with urine otherwise though some frequency and did have a bowel movement. The patient's back pain of course is worse with activity and better with rest. The patient has been told he has got back spur. REVIEW OF SYSTEMS: CONSTITUTIONAL: Tired. HEENT: Decreased hearing. RESPIRATORY: None. CARDIOVASCULAR: None. GASTROINTESTINAL: None. GENITOURINARY: As above. MUSCULOSKELETAL: As above. DERMATOLOGICAL: None. HEMATOLOGICAL: None LYMPHATICS: None. PSYCHIATRY: He was confused last night. NEUROLOGICAL: None. PAST MEDICAL HISTORY: Diabetes mellitus type 2, osteoarthritis, asbestosis, tinnitus, kidney stone on the left side, diabetes mellitus type 2. PAST SURGICAL HISTORY: Cholecystectomy, joint replacement, bilateral knee surgery, rotator cuff repair, left cataract surgery, ESWL of the left ureteral calculus. SOCIAL HISTORY: The patient stopped smoking 1986 and started smoking at age of 18. Lives by himself. FAMILY HISTORY: Congestive heart failure. HOME MEDICATIONS: 1. Glucophage 1000 mg p.o. b.i.d. 2. Depo-testosterone 250 mg IM every 42 days. 3. Piroxicam 20 mg with supper. 4. [place] 5 one tablet q.6 p.r.n. 5. Flonase 1 or 2 sprays each nostril daily p.r.n. ALLERGIES: None. PHYSICAL EXAMINATION: On examination, vital signs on presentation: Temperature 100.1, pulse 56, respirations 18, blood pressure 132/58, pulse ox 89% on room air. GENERAL APPEARANCE: Well built, BMI 30, lying in bed, tired appearing. EYES: Pupils equal. Conjunctivae normal. HENT: Oral cavity normal. NECK: JVD not raised. Mass not palpable. RESPIRATORY: Effort normal. LUNGS: Slightly decreased breath sounds. CARDIOVASCULAR: First and second sounds normal. No edema. ABDOMEN: Soft, nontender. Liver and spleen not palpable. LYMPHATIC: No lymph node palpable in the neck or axillae. PSYCHIATRY: Alert and oriented x3. Mood and affect normal. NEUROLOGICAL: Pupils equal. Cranial nerves grossly intact. Power and sensation grossly intact. MUSCULOSKELETAL: Slight tenderness in the lower back and lumbar area. The patient is able to raise both the legs to about 30 to 40 degrees though with some lower back pain. INVESTIGATIONS: White count 21.3, hemoglobin 14.1. Potassium 4.6. UA positive for leukocyte esterase, WBC. ASSESSMENT: 1. This is a patient who fell off the bed, does not remember much, felt he was bit confused most likely acute delirium from underlying urinary tract infection. The patient has also got a white count likely causing sepsis. 2. Diabetes mellitus type 2, on oral hypoglycemic. 3. Acute on chronic low back pain, likely osteoarthritis of the lumbosacral spine. 4. Chronic asbestosis. 5. Chronic tinnitus. 6. Left kidney stone. 7. Lactic acidosis from #1. PLAN: Patient started on antibiotic. We will switch to ceftriaxone. The patient is also getting IV fluids. Will order an x-ray of the thoracolumbar spine and also CT scan of the same. We will consult Dr. Santoyo from [facility]. For pain control, we will start the patient on naproxen 500 mg q.12, [place] 5 around the clock and baclofen for muscle spasm. Care was discussed with the patient. Questions were answered. MMODL / IJN: [id number] /
--- NOTE | 2017-11-21 14:15 | XR ---
EXAMINATION TYPE: XR lumbosacral spine min 4V DATE OF EXAM: 11/21/2017 COMPARISON: NONE HISTORY: Acute on chronic back pain TECHNIQUE: Five-view lumbar spine FINDINGS: There 5 lumbar-type vertebral bodies. The pedicles are intact. Facet degenerative changes p resent to mild degree bilaterally. Spondylosis is present. Some disc space narrowing L3-4 is present. Vertebral body alignment is normal. Structures appear osteopenic. IMPRESSION: 1. Degenerative changes lumbar spine
--- NOTE | 2017-11-21 14:19 | XR ---
EXAMINATION TYPE: XR thoracic spine 2V DATE OF EXAM: 11/21/2017 COMPARISON: NONE HISTORY: Acute on chronic back pain TECHNIQUE: Two-view thoracic spine FINDINGS: There are 12 thoracic type vertebral bodies. The pedicles are intact. Degenerative disc caridad nges are present. Anterior flowing spondylosis is present. Correlate for DISH. Diffuse hepatic skelet al hyperostosis IMPRESSION: 1. Spondylosis with anterior fusion. Correlate for DISH.
[2017-11-21] MEDS: BACLOFEN 10 MG TAB PO SCH ×3 (14:20→21:25)
[2017-11-21] MEDS: TAMSULOSIN 0.4 MG CAP.ER.24H PO SCH (14:20)
[2017-11-21] MEDS: HYDROcodone/APAP 5-325MG 1 EACH TAB PO SCH ×3 (14:21→23:15)
[2017-11-21] MEDS: NAPROXEN 250 MG TAB PO SCH ×2 (14:21→20:12)
--- NOTE | 2017-11-21 14:29 | CT ---
EXAMINATION TYPE: CT thor lumbar spine wo con DATE OF EXAM: 11/21/2017 COMPARISON: NONE HISTORY: chronic back pain CT DLP: 2165 mGycm Automated exposure control for dose reduction was used. FINDINGS: There may be some compressive atelectasis within the dependent portions of the lung bases. Thoracic spine: May be some endplate changes at T7-T8 with mild anterior thecal sac compression. No s tenosis is present. Lumbar spine: L5-S1 facet hypertrophy is present with posterior lateral thecal sac compression. Resid ual disc bulge may have contact with the distal sac at L5-S1. No spinal canal stenosis is present. IMPRESSION: 1. LOWER LUMBAR SPINE FACET DEGENERATIVE CHANGE. 2. MILD ENDPLATE CHANGES MID THORACIC SPINE T7-T8 LEVEL WITHOUT STENOSIS.
--- NOTE | 2017-11-21 16:10 | P.CNOR ---
History of Present Illness - [facility] Consult date: 11/21/17 Requesting physician: Jeff Mobley Consult reason: low back pain History of present illness: Patient is a very pleasant 77-year-old male who is seen and examined at the bedside for further evaluation after we were consulted in regards to acute exacerbation of chronic low back pain over the past 4-5 days. Yesterday he had taken some Preemption for some control of his symptoms and shortly after he fell sliding underneath his bed but is unsure of exactly how he got there. EMS was called and he was transferred to the hospital for further evaluation. While in the emergency department, he was found to have a urinary tract infection as well as a left ureteral calculus. He is being seen and examined by medicine and urology. He is currently on antibiotic. He was also found to have leukocytosis at admission. He states he has not had any formal treatment for his lumbar spine but has recently seen his primary care provider who took some x -rays and stated he appeared to have degenerative change without acute change. Patient's denies any specific lower extremity radiculopathy or weakness bilaterally. He states he is significant stiffness lumbar spine and has difficulty bending forward and tieing his shoes. This has been ongoing for a number of years. He does feel some tightness in his hamstrings while flexing forward. He denies any specific known injury. Past Medical History Past Medical History: Diabetes Mellitus, Eye Disorder, Osteoarthritis (OA), Respiratory Disorder Additional Past Medical History / Comment(s): ASBESTOSIS, TINNITIS, KIDNEY STONE LEFT SIDE-6MM, Type 2 DM History of Any Multi-Drug Resistant Organisms: None Reported Past Surgical History: Cholecystectomy, Joint Replacement, Orthopedic Surgery Additional Past Surgical History / Comment(s): PINEDA KNEE,PIENDA ROT CUFF REPAIR, LEFT CATARACT SX, ESWL left ureteral calculus 11/2016 Past Anesthesia/Blood Transfusion Reactions: Previous Problems w/ Anesthesia Additional Past Anesthesia/Blood Transfusion Reaction / Comm: SAT UP DURING TOT RT KNEE SURGERY Past Psychological History: No Psychological Hx Reported Smoking Status: Former smoker Past Alcohol Use History: Occasional Additional Past Alcohol Use History / Comment(s): QUIT SMOKING 1986, STARTED SMOKING AT AGE 18 Past Drug Use History: None Reported - Past Family History Mother Family Medical History: Congestive Heart Failure (CHF) Father Family Medical History: Cancer Brother(s) Family Medical History: Cancer Sister(s) Family Medical History: Cancer Medications and Allergies Home Medications Medication Instructions Recorded Confirmed Type Piroxicam 20 mg PO W/SUPPER 11/05/16 11/21/17 History Testosterone Cypionate 250 mg IM Q42D 11/05/16 11/21/17 History [Depo-Testosterone] Fluticasone Nasal [place] [Flonase 1 - 2 spray EA NOSTRIL DAILY PRN 11/21/1711/21 History Nasal [place]] HYDROcodone/APAP 5-325MG [Preemption 1 tab PO Q6H PRN 11/21/17 11/21/17 History 5-325] metFORMIN HCL [Glucophage] 1,000 mg PO BID 11/21/17 11/21/17 History Allergies Allergy/AdvReac Type Severity Reaction Status Date / Time No Known Allergies Allergy Verified 11/21/17 07:34 Physical Examination Physical exam: Patient is awake, alert, and oriented 3 Vital signs stable Good chest excursion with deep inspiration and expiration Abdomen soft nontender Examination of lumbar spine reveals skin is intact with no abrasions, lacerations, or bruises; no erythema, purulence or signs of infection Pain with palpation along the midline of the lower lumbar and sacral spine Dorsiflexion, plantarflexion, and extensor hallucis longus positive sustained bilaterally Patient has some difficulty with raising bilateral lower extremities off the bed independently but he is able to do so Patellar reflex 1+ bilaterally and Achilles reflexes 0+ bilaterally Evidence of well-healed incisions over the bilateral knees No lower extremity hyperreflexia bilaterally Straight leg test negative bilateral lower extremities No signs or symptoms of DVT; no calf pain No pain with internal and external rotation of the hips bilaterally Neurovascularly intact Results Pertinent studies: CT of the thoracic and lumbar spine: Ankylosing spondylitis with significant osteophytic bone spur formation at L2-3 and L5-S1; vertebral disc spacing appears to be fairly well maintained; T7-8 endplate change with mild anterior thecal sac compression with no evidence of canal stenosis; L5-S1 facet hypertrophy, posterior lateral sac compression and residual disc bulge may have contact with distal sac without evidence of spinal canal stenosis; X-rays of the thoracic spine: Ankylosing spondylitis with anterior fusion; no evidence of vertebral body compression fracture X-ray of the lumbar spine: Ankylosing spondylitis with anterior fusion; facet degenerative changes; No evidence of vertebral body compression fracture - Labs Labs: Abnormal Lab Results - Last 24 Hours (Table) 11/21/17 11/21/17 11/21/17 Range/Units 03:02 03:02 03:02 WBC 21.3 H (3.8-10.6) k/uL Plt Count 148 L (150-450) k/uL Neutrophils # 18.5 H (1.3-7.7) k/uL Monocytes # 1.2 H (0-1.0) k/uL BUN 22 H (9-20) mg/dL Glucose 202 H (74-99) mg/dL Plasma Lactic Acid Eric 2.1 H* (0.7-2.0) mmol/L Amylase <30 L (30-110) U/L Urine Protein (Negative) Urine Ketones (Negative) Urine Blood (Negative) Ur Leukocyte Esterase (Negative) Urine WBC (0-5) /hpf Urine Bacteria (None) /hpf Urine Mucus (None) /hpf 11/21/17 11/21/17 Range/Units 03:08 06:35 WBC (3.8-10.6) k/uL Plt Count (150-450) k/uL Neutrophils # (1.3-7.7) k/uL Monocytes # (0-1.0) k/uL BUN (9-20) mg/dL Glucose (74-99) mg/dL Plasma Lactic Acid Eric 2.3 H* (0.7-2.0) mmol/L Amylase (30-110) U/L Urine Protein 2+ H (Negative) Urine Ketones Trace H (Negative) Urine Blood Trace H (Negative) Ur Leukocyte Esterase Moderate H (Negative) Urine WBC 50 H (0-5) /hpf Urine Bacteria Many H (None) /hpf Urine Mucus Many H (None) /hpf H & H 11/21/17 Range/Units 03:02 Hgb 14.1 (13.0-17.5) gm/dL Hct 42.1 (39.0-53.0) % Coagulation 11/21/17 Range/Units 03:02 INR 1.1 (<1.2) Result Diagrams: 11/21/17 03:02 11/21/17 03:02 Assessment and Plan Assessment: Assessment: Acute exacerbation of chronic low back pain Ankylosing spondylitis of the thoracic and lumbar spines Lumbosacral Facet Spondylosis Status Post fall Urinary tract infection Left ureteral calculus (1) Ankylosing spondylitis of multiple sites in spine Current Visit: Yes Status: Acute Code(s): M45.0 - ANKYLOSING SPONDYLITIS OF MULTIPLE SITES IN SPINE SNOMED Code(s): 7958584 (2) Acute exacerbation of chronic low back pain Current Visit: Yes Status: Acute Code(s): M54.5 - LOW BACK PAIN; G89.29 - OTHER CHRONIC PAIN SNOMED Code(s): 689788434 (3) Facet arthritis, degenerative, L5-S1 level, lumbosacral spine Current Visit: Yes Status: Acute Code(s): M47.817 - SPONDYLS W/O MYELOPATHY OR RADICULOPATHY, LUMBOSACR REGION SNOMED Code(s): 842595027 (4) Fall Current Visit: Yes Status: Acute Code(s): W19.XXXA - UNSPECIFIED FALL, INITIAL ENCOUNTER SNOMED Code(s): 1292277 (5) UTI (urinary tract infection) Current Visit: Yes Status: Acute Code(s): N39.0 - URINARY TRACT INFECTION, SITE NOT SPECIFIED SNOMED Code(s): 15914699 (6) Ureteral calculus, left Current Visit: Yes Status: Acute Code(s): N20.1 - CALCULUS OF URETER SNOMED Code(s): 33209393 Plan: Plan: 1. Patient has been discussed in detail with Dr. Chava Santoyo and imaging has been reviewed. After physical examination the patient, reviewing imaging, and further discussion with the patient, we'll currently planned to continue with conservative treatment in regards to his thoracic and lumbar spines. He does have evidence of degenerative changes with ankylosing spondylitis throughout his thoracic and lumbar spines. He does not have evidence of compression fracture deformity or acute change. He has continued to have some ongoing low back pain that has been exacerbated over the past few days. At this time, we feel he should continue with conservative treatment. We we will plan to consult with pain management for further evaluation and to discuss possible treatment options. We will refrain from the possibility of surgical intervention at this time. He may plan to follow-up in the outpatient setting on an as-needed basis following discharge. 2. Medicine and urology to continue following the patient for his other medical diagnoses including urinary tract infection and left ureteral calculus 3. From an orthopedic spine standpoint, patient is clear for discharge once cleared by medicine and neurology 4. Consultation will be placed with pain management for further evaluation and discuss possible treatment options 5. Following discharge, patient may follow-up with Parrish Amaya PA-C or Dr. Chava Santoyo at [facility] on an as-needed basis 6. Patient has been discussed with Dr. Chava Santoyo in detail and he agrees with this plan Time with Patient: Less than 30
[2017-11-21] MEDS: metFORMIN 500 MG TAB PO SCH (16:33)
[2017-11-21] MEDS ORDERED: MELOXICAM 7.5 MG TAB PO SCH (17:30)
[2017-11-21] MEDS: INSULIN ASPART 100 UNIT/ML 1 ML 10 ML VIAL SQ SCH (20:12)
[2017-11-21 20:23] LABS: Glucose,Whole Blood 139 mg/dL (75-99)
[2017-11-22] MEDS: HYDROcodone/APAP 5-325MG 1 EACH TAB PO SCH ×3 (05:33→17:57)
[2017-11-22] MEDS: SODIUM CHLORIDE 0.9% 1,000 ML IV SCH ×2 (05:35→12:40)
[2017-11-22 06:46] LABS: Glucose,Whole Blood 129 mg/dL (75-99)
[2017-11-22] MEDS: INSULIN ASPART 100 UNIT/ML 1 ML 10 ML VIAL SQ SCH ×4 (07:19→20:22)
--- NOTE | 2017-11-22 07:32 | P.PN ---
Progress Note - Text Progress Note Date: 11/22/17 The patient is afebrile and normotensive. He complains of pain in his low back which has been chronic but denies any lower abdominal discomfort. He has no dysuria and feels that his voiding pattern is normal. Labs from this morning are pending. It is unclear whether a urine culture was done in the emergency room. If his urine culture eventually shows no growth or was not done but I would still probably continue him on Levaquin for 10 days total as his initial laboratory studies were very suggestive of an infection. If his BUN and creatinine have improved then a follow-up renal ultrasound may not be necessary.
[2017-11-22] MEDS: ENOXAPARIN 40 MG/0.4 ML SYRINGE SQ SCH (08:12)
[2017-11-22] MEDS: BACLOFEN 10 MG TAB PO SCH ×3 (08:13→22:03)
[2017-11-22] MEDS: NAPROXEN 250 MG TAB PO SCH ×2 (08:13→20:15)
[2017-11-22] MEDS: metFORMIN 500 MG TAB PO SCH ×2 (08:13→17:57)
[2017-11-22] MEDS: TAMSULOSIN 0.4 MG CAP.ER.24H PO SCH (08:14)
[2017-11-22] MEDS ORDERED: LEVOFLOXACIN 750MG-D5W PMX 750 MG in DEXTROSE/WATER 1 150ML.BAG IVPB SCH (09:00)
[2017-11-22] MEDS: cefTRIAXone IN SWFI 1,000 MG/10 ML SYRINGE IVP SCH (09:32)
[2017-11-22 11:15] LABS: Glucose,Whole Blood 158 mg/dL (75-99)
[2017-11-22] MEDS ORDERED: RX INFO: IV CONTRAST WAS GIVEN 1 EACH MISC MISCELLANE PRN (15:50)
--- NOTE | 2017-11-22 16:44 | CT ---
EXAMINATION TYPE: CT chest angio for PE DATE OF EXAM: 11/22/2017 COMPARISON: NONE HISTORY: R/O PE. Chest pain CT DLP: 389.4 mGycm Automated exposure control for dose reduction was used. CONTRAST: CT Chest for pulmonary embolism performed with with IV Contrast, patient injected with 80 mL of Omnip aque 350. There are 3-D post processed images. FINDINGS: There is patchy interstitial and alveolar infiltrate in the mid and lower lung [place]. There are bila teral pleural effusions. There is no pericardial effusion. There are a few mediastinal and peribronch ial lymph nodes that measure less than 1 cm. There is no evidence of aortic aneurysm or dissection. I see no filling defects in the pulmonary arteries. IMPRESSION: No evidence of pulmonary embolism. Patchy bilateral lower lobe pulmonary infiltrates and atelectasis with pleural effusions.
[2017-11-22 17:44] LABS: Glucose,Whole Blood 134 mg/dL (75-99)
[2017-11-22 17:48] LABS: ABG HCO3 22 mmol/L (21-25); ABG PCO2 36 mmHg (35-45); ABG PO2 53 mmHg (83-108); ABG TCO2 23 mmol/L (19-24)
[2017-11-22 17:49] LABS: ABG Base Excess -2.1 mmol/L
[2017-11-22 18:29] LABS: Hemoglobin A1C 6.3 % (4.0-6.0)
[2017-11-22 19:52] LABS: Glucose,Whole Blood 192 mg/dL (75-99)
--- NOTE | 2017-11-22 20:22 | P.PN ---
Progress Note - Text Progress Note Date: 11/22/17 DATE OF SERVICE: 11/22/2017 PRESENTING COMPLAINT: Acute back pain HISTORY OF PRESENT ILLNESS: 77-year-old male who's had low back pain for the last few weeks have finding it difficult to get about. 2 nights ago patient fell out of his bed however he does not remember how he got underneath the bed he was unable to actually pull himself from underneath the bed and did finally get to the phone. Called his sister and then 911 was dispatched. Continues to have low back pain with difficulty walking pain radiates down both legs. No urinary trouble or frequency and has moved his bowels. Pain is worse with activity and better with rest. Diagnostics reveal a urinary tract infection causing sepsis admitted for the same. INTERVAL HISTORY: 11/22/2017: Lying in bed appears comfortable. States his back pain is better with the addition of pain medications. Ambulating in the hallway to 2 laps around the unit. Orthopedics evaluated the patient. Was planning on sending patient home however alerted by nursing that heart rate was in the 100s and oxygen saturation low into the 80s without oxygen. ABG obtained. CT of the chest ordered Tolerating his diet eating about 50% of his meals, last BM prior to admission. REVIEW OF SYSTEMS: Done for constitutional ,cardiovascular, GI, pulmonary with relevant findings as above. CURRENT MEDICATIONS [place], baclofen, Rocephin, Lovenox, NovoLog, Glucophage, Narcan, Flomax. PHYSICAL EXAM VITAL SIGNS: Temperature 97.6, pulse 101, respiratory rate 16, blood pressure 133/75, oxygen saturation 87 % on room air. GENERAL APPEARANCE:Lying in bed, not in distress. HENT: Normocephalic, JVD not raised. Mass not palpable. Oral cavity normal, external appearance of ears and nose normal. EYES:Pupils equal. Conjunctiva normal. RESPIRATORY: Respiratory effort normal. Lungs diminished to auscultation. CARDIOVASCULAR: First and second sounds normal. No edema. ABDOMEN: Soft. Liver and spleen not palpable. No tenderness. No mass palpable. PSYCHIATRY: Alert and oriented x3. Mood and affect normal. MUSCULOSKELETAL: Tenderness to the lumbosacral spine area INVESTIGATIONS: Accu-Cheks noted, AB.40, 36, 53, 22, 23, -2.1 CTA of the chest: No evidence of pulmonary embolism ASSESSMENT: -Acute delirium from underlying urinary tract infection, causing sepsis, present on admission -Diabetes mellitus type 2, on oral hypoglycemics. -Acute on chronic low back pain, likely osteoarthritis of the lumbosacral spine. -Chronic asbestosis. -Chronic tinnitus. -Left kidney stone. -Lactic acidosis from #1. PLAN: No evidence of PE per CTA, patient does have chronic asbestosis which may account for his low oxygen level on ABG. Continue antibiotic therapy for urinary tract infection for total of 10 days per urology. Orthopedics agrees with and recommends continuing with conservative treatment and there are no plans for any acute surgical intervention at this time and do not feel that he needs interventional pain management or injections but may be a reasonable option if his symptoms were to become worse. Discharge planning for the next 24 -48 hours. Plan of care discussed at the bedside he is in agreement. We will follow closely. PROFESSOR OF INDUSTRIAL TECHNOLOGY statement: Patient was seen and examined by nurse practitioner Christianne Carter and all elements of the case discussed with attending Dr. Mobley
--- NOTE | 2017-11-22 23:44 | PN ---
PROGRESS NOTE DATE OF SERVICE: 11/22/2017 ATTENDING NOTE: This patient was seen and examined by me. I discussed the case with the nurse practitioner Ms. Carter. Patient was admitted with acute delirium from UTI and also flareup of acute low back pain. With a cocktail of medicines, back pain is much improved; actually went up to the bathroom. There is notation of some pulse ox being low. I did order a CT scan of the chest that came back negative for PE. Overall feeling much better. Afebrile. Blood pressure 133/75. ASSESSMENT: 1. Acute urinary tract infection and delirium, latter of which is improved. 2. Ankylosing spondylitis/severe degenerative joint disease of the thoracolumbar spine, clinically doing better. The patient was seen by Dr. Tidwell from Urology and Dr. Santoyo from Orthopedics. The patient continues to do better; hopefully can be discharged tomorrow. MMODL / IJN: [id number] /
[2017-11-23] MEDS: HYDROcodone/APAP 5-325MG 1 EACH TAB PO SCH ×3 (00:40→12:28)
[2017-11-23] MEDS: SODIUM CHLORIDE 0.9% 1,000 ML IV SCH ×2 (00:42→05:56)
[2017-11-23 07:02] LABS: Glucose,Whole Blood 133 mg/dL (75-99)
[2017-11-23] MEDS: metFORMIN 500 MG TAB PO SCH (07:16)
[2017-11-23] MEDS: INSULIN ASPART 100 UNIT/ML 1 ML 10 ML VIAL SQ SCH ×2 (08:12→12:28)
[2017-11-23 09:03] VITALS: BP 157/87; PULSE 106; RESP 17; TEMP 98.2
[2017-11-23] MEDS: BACLOFEN 10 MG TAB PO SCH (09:53)
[2017-11-23] MEDS: cefTRIAXone IN SWFI 1,000 MG/10 ML SYRINGE IVP SCH (09:54)
[2017-11-23] MEDS: ENOXAPARIN 40 MG/0.4 ML SYRINGE SQ SCH (09:54)
[2017-11-23] MEDS: NAPROXEN 250 MG TAB PO SCH (09:54)
[2017-11-23] MEDS: TAMSULOSIN 0.4 MG CAP.ER.24H PO SCH (09:54)
[2017-11-23 11:03] LABS: Glucose,Whole Blood 167 mg/dL (75-99)
--- NOTE | 2017-11-23 13:57 | DS ---
DISCHARGE SUMMARY DATE OF ADMISSION: 11/21/2017. DATE OF DISCHARGE: 11/23/2017 FINAL DIAGNOSES: 1. Acute severe urinary tract infection causing sepsis on presentation and causing delirium. 2. Diabetes mellitus type 2, on oral hypoglycemic. 3. Acute on chronic lower back pain from osteoarthritis of lumbosacral spine. 4. Chronic hypoxic respiratory failure from combination of chronic obstructive pulmonary disease and asbestosis. 5. Chronic obstructive pulmonary disease in an ex-smoker. Patient smoked for 20 years. 6. Chronic tinnitus. 7. Left nephrolithiasis. 8. Lactic acidosis, present on admission from sepsis from urinary tract infection present on admission. HOSPITAL COURSE: This is a very pleasant gentleman with chronic low back pain, became confused, fell out of bed, increasing low back pain was not able to walk initially. Found to have severe UTI. Responded well to antibiotic. The patient was given a cocktail of medication antispasmodic. Doing much better. Walking much better. The patient's oxygen was found to be down. Patient has a history of asbestos and also did smoke in the past. The patient will be getting home oxygen as his pulse ox was down to 80%. The patient is overall much improved. The patient did have a CT scan of the thoracolumbar spine and x-ray showing evidence of significant osteoarthritis. The patient is seen by Dr. Santoyo from orthopedic with no surgical intervention to be done. Also seen by Dr. Tidwell from the urology. CONSULTATIONS: Dr. Santoyo from [facility]; Dr. Tidwell from Urology. We did blood gas on room air, which did show a saturation of 87%. Also pulmonary embolism was ruled out. ON EXAM: LUNGS: Decreased breath sounds. CARDIOVASCULAR: First and second sounds normal. DISCHARGE MEDICATIONS: 1. Depo-Testosterone 250 mg IM every 42 days. 2. Flonase 1 to 2 sprays each nostril daily p.r.n. 3. [place] 5 one tablet q.6 p.r.n. 4. Metformin 1000 mg p.o. b.i.d. 5. Baclofen 5 mg p.o. t.i.d., 30 tablets. 6. Naproxen 500 mg p.o. b.i.d. for 7 days. 7. Flomax 0.4 mg p.o. daily. 8. Ceftin 250 mg p.o. b.i.d., 14 tablets. 9. DuoNeb t.i.d. 10.The patient to be discharged on 2 L of home oxygen. Follow up with Parrish Amaya as needed; Dr. Alexsander García on 11/27/2017, Dr. Tidwell on 11/30/2017. CBC, BMP in 3 to 5 days. Care was discussed with the patient. Questions were answered. Discussion and discharge planning more than 35 minutes. MMODL / IJN: [id number] /
--- NOTE | 2017-12-24 14:05 | PN ---
PROGRESS NOTE ADDENDUM: DATE OF SERVICE: 11/22/2017 On examination, lungs slightly decreased breath sounds. CARDIOVASCULAR: First and second sounds normal. PSYCH: Alert and oriented x3. MMODL / IJN: [id number] /
== END 2017-11-23 14:30 | disposition home or self-care (01) | DRG 872 ==
LOC: EC 02:45 → SUPCPDRO 02:45 → 3SUR 05:15
PROVIDERS: ADMIT Hospitalist; ATTEND Hospitalist
DX: A41.9 Sepsis, unspecified organism (principal); J96.11 Chronic respiratory failure with hypoxia; E87.2 Acidosis; E11.9 Type 2 diabetes mellitus without complications; J44.9 Chronic obstructive pulmonary disease, unspecified; N39.0 Urinary tract infection, site not specified; N20.2 Calculus of kidney with calculus of ureter; W06.XXXA Fall from bed, initial encounter; H93.19 Tinnitus, unspecified ear; M45.5 Ankylosing spondylitis of thoracolumbar region; R41.0 Disorientation, unspecified; M51.35 Other intervertebral disc degeneration, thoracolumbar region; J61 Pneumoconiosis due to asbestos and other mineral fibers; Z79.899 Other long term (current) drug therapy; Z79.84 Long term (current) use of oral hypoglycemic drugs; Z79.891 Long term (current) use of opiate analgesic; Z87.442 Personal history of urinary calculi; Z87.891 Personal history of nicotine dependence; Z82.49 Family history of ischemic heart disease and other diseases of the circulatory system; Z90.49 Acquired absence of other specified parts of digestive tract; Z98.49 Cataract extraction status, unspecified eye; Y92.003 Bedroom of unspecified non-institutional (private) residence as the place of occurrence of the external cause
CPT/HCPCS: 36415; 36600; 71046; 71275; 72070; 72110; 72128; 72131; 74177; 80053; 81001; 82150; 82805; 83036; 83605; 83690; 84484; 85025; 85610; 85730; 87040; 87502; 93005; 96361; 96365; 96366; 96375; 99285

== ENCOUNTER → 2018-01-15 | Outpatient (CLI) | payer MEDICARE ==
--- NOTE | 2018-01-15 08:05 | CT ---
EXAMINATION TYPE: CT brain wo con DATE OF EXAM: 01/15/2018 COMPARISON: NONE HISTORY: syncope, bilateral leg weakness CT DLP: [address] of the brain was performed. The ventricles, basal cisterns and sulci overlying the cerebral convexities demonstrate mild enlargem ent. There is evidence for decreased attenuation within the right frontal lobe. Recommend MRI to excl ude nonacute vascular insult. Underlying lesion felt to be less likely. There is no evidence for intracranial hemorrhage or sulcal effacement. There is decreased attenuation about the periventricular white matter and deep white matter of both c erebral hemispheres, compatible with chronic small vessel ischemia. Differential diagnosis does inclu de demyelination. No mass effects are seen.No midline shift. Osseous calvarium is intact. If symptoms persist consider MRI. IMPRESSION: 1.There is evidence for decreased attenuation within the right frontal lobe. Recommend MRI to exclude nonacute vascular insult. Underlying lesion felt to be less likely. 2. Age related atrophic and chronic small vessel ischemic change.
== END | disposition home or self-care (01) ==
LOC: RADCTMAIN 06:28
PROVIDERS: ATTEND Psychiatry & Neurology Neurology
DX: G31.9 Degenerative disease of nervous system, unspecified (principal); I67.82 Cerebral ischemia
CPT/HCPCS: 70450

== ENCOUNTER → 2018-01-19 | Outpatient (CLI) | payer MEDICARE ==
--- NOTE | 2018-01-19 10:16 | MR ---
EXAMINATION TYPE: MR brain wo/w con DATE OF EXAM: 01/19/2018 10:06 AM COMPARISON: Previous CT scan dated 01/15/2018. HISTORY: Syncope, abn CT TECHNIQUE: Multiplanar, multiecho imaging of the brain was obtained with and without intravenous adm inistration of 9.5 mL intravenous Gadavist. FINDINGS: Midline structures are unremarkable. There is a normal craniocervical junction. Echoplanar diffusion imaging fails to demonstrate areas of restricted diffusion. There is evidence of encephalomalacia involving the right frontal lobe. This is likely on the basis o f a previous vascular insult. There are both punctate and confluent periventricular FLAIR lesions on the FLAIR dataset compatible w ith a combination of small vessel disease and chronic ischemic change. There is no mass effect, midli ne shift or intracranial blood. There are normal vascular flow voids. The orbits are unremarkable. There are sinus mucosal disease involving the left maxillary and left frontal sinus. There is no evidence of a CP angle mass lesion. Following the intravenous administration of gadolinium, there is no abnormal enhancement. IMPRESSION: 1. NO ACUTE INTRACRANIAL ABNORMALITY. 2. EVIDENCE OF AN OLD RIGHT FRONTAL INFARCT. 3. LEFT-SIDED MAXILLARY AND FRONTAL SINUS MUCOSAL DISEASE. 4. BOTH PUNCTATE AND CONFLUENT PERIVENTRICULAR WHITE MATTER CHANGES COMPATIBLE WITH A COMBINATION OF SMALL VESSEL DISEASE AND CHRONIC ISCHEMIC CHANGE.
== END | disposition home or self-care (01) ==
LOC: RADMRIMAIN 08:29
PROVIDERS: ATTEND Psychiatry & Neurology Neurology
DX: R90.82 White matter disease, unspecified (principal); R55 Syncope and collapse; R90.89 Other abnormal findings on diagnostic imaging of central nervous system; Z13.89 Encounter for screening for other disorder
CPT/HCPCS: 82565; 70553; 36415; A9581

== ENCOUNTER → 2018-10-01 | Outpatient (CLI) | payer MEDICARE ==
[2018-10-01 10:52] LABS: Basophils % (A) 1 %; Eosinophils # (A) 0.3 k/uL (0-0.7); Eosinophils % (A) 4 %; HCT 41.9 % (39.0-53.0); HGB 14.2 gm/dL (13.0-17.5); Lymphocytes # (A) 1.7 k/uL (1.0-4.8); Lymphocytes % (A) 29 %; MCH 32.3 pg (25.0-35.0); MCHC 33.9 g/dL (31.0-37.0); MCV 95.4 fL (80.0-100.0); Mean Platelet Volume 9.3; Monocytes # (A) 0.4 k/uL (0-1.0); Monocytes % (A) 8 %; Neutrophils # (A) 3.3 k/uL (1.3-7.7); Neutrophils % (A) 56 %; Platelet Count 172 k/uL (150-450); RDW 12.4 % (11.5-15.5); WBC 5.9 k/uL (3.8-10.6)
[2018-10-01 14:06] LABS: Erythrocyte Sedimentation Rate 8 mm/hr (0-15)
== END | disposition home or self-care (01) ==
LOC: LABWHC1 10:09
PROVIDERS: ATTEND Orthopaedic Surgery
DX: Z09 Encounter for follow-up examination after completed treatment for conditions other than malignant neoplasm (principal); Z96.651 Presence of right artificial knee joint
CPT/HCPCS: 36415; 85025; 85652; 86140

== ENCOUNTER 2018-12-18 14:15 | Observation (INO) | payer MEDICARE ==
[2018-12-18] MEDS ORDERED: SODIUM CHLORIDE 0.9% 1,000 ML IV STA (15:02)
[2018-12-18 15:30] LABS: Basophils % (A) 0 %; Eosinophils # (A) 0.3 k/uL (0-0.7); Eosinophils % (A) 4 %; HCT 40.1 % (39.0-53.0); HGB 13.2 gm/dL (13.0-17.5); Lymphocytes # (A) 1.5 k/uL (1.0-4.8); Lymphocytes % (A) 22 %; MCH 31.2 pg (25.0-35.0); MCHC 32.8 g/dL (31.0-37.0); Mean Platelet Volume 9.4; Monocytes # (A) 0.5 k/uL (0-1.0); Monocytes % (A) 7 %; Neutrophils # (A) 4.3 k/uL (1.3-7.7); Neutrophils % (A) 64 %; Platelet Count 149 k/uL (150-450); RBC 4.22 m/uL (4.30-5.90); RDW 12.3 % (11.5-15.5); WBC 6.7 k/uL (3.8-10.6)
[2018-12-18 15:44] LABS: Calcium 9.3 mg/dL (8.4-10.2); Magnesium 1.7 mg/dL (1.6-2.3); Potassium 4.6 mmol/L (3.5-5.1); Total Bilirubin 0.5 mg/dL (0.2-1.3); Total Protein 7.1 g/dL (6.3-8.2)
--- NOTE | 2018-12-18 15:49 | ED ---
General Adult HPI - General Chief complaint: Syncope Stated complaint: SYNCOPE Time Seen by Provider: 12/18/18 14:32 Source: patient, EMS, RN notes reviewed, old records reviewed Mode of arrival: EMS Limitations: no limitations - History of Present Illness Initial comments: 78-year-old male patient past medical history of type 2 diabetes, osteoarthritis presents to ED after a syncopal episode earlier today. Patient reports that he was bent over placing some items in the refrigerator patient reports that upon standing up he became lightheaded and syncopized. Patient unaware if he had any trauma to head. Fall was witnessed, patient had only transient loss of consciousness. Patient currently only complains of some left flank pain where he believes that he may have fallen. Patient is ambulatory without difficulty. Patient denies any headache, changes in vision, pain in neck. Patient denies any chest pain, shortness of breath. Patient denies any abdominal pain, nausea vomiting diarrhea. Patient denies any dysuria. Patient denies all other complaints. Systemic: Pt denies fatigue, myalgia, fever/chills, rash. Pt denies weakness, night sweats, weight loss. Neuro: Pt denies headache, visual disturbances. HEENT: Pt denies ocular discharge or irritation, otalgia, rhinorrhea, pharyngitis or notable lymphadenopathy. Cardiopulmonary: Pt denies chest pain, SOB, heart palpitations, dyspnea on exertion. Abdominal/GI: Pt denies abdominal pain, n/v/d. : Pt denies dysuria, burning w/ urination, frequency/urgency. Denies new onset urinary or bowel incontinence. MSK: Pt denies myalgia, loss of strength or function in extremities. Neuro: Pt denies new onset weakness, paresthesias. - Related Data Home Medications Medication Instructions Recorded Confirmed metFORMIN HCL [Glucophage] 1,000 mg PO BID 11/21/17 12/18/18 Meloxicam 7.5 mg PO DIRECTED PRN 12/18/18 12/18/18 Allergies Allergy/AdvReac Type Severity Reaction Status Date / Time No Known Allergies Allergy Verified 12/18/18 15:39 Review of Systems ROS Statement: Those systems with pertinent positive or pertinent negative responses have been documented in the HPI. ROS Other: All systems not noted in ROS Statement are negative. Past Medical History Past Medical History: Diabetes Mellitus, Eye Disorder, Osteoarthritis (OA), Respiratory Disorder Additional Past Medical History / Comment(s): ASBESTOSIS, TINNITIS, KIDNEY STONE LEFT SIDE-6MM, Type 2 DM History of Any Multi-Drug Resistant Organisms: None Reported Past Surgical History: Cholecystectomy, Joint Replacement, Orthopedic Surgery Additional Past Surgical History / Comment(s): PIENDA KNEE,PINEDA ROT CUFF REPAIR, LEFT CATARACT SX, ESWL left ureteral calculus 11/2016 Past Anesthesia/Blood Transfusion Reactions: Previous Problems w/ Anesthesia Additional Past Anesthesia/Blood Transfusion Reaction / Comment(s): SAT UP DURING TOT RT KNEE SURGERY Past Psychological History: No Psychological Hx Reported Smoking Status: Former smoker Past Alcohol Use History: Occasional Past Drug Use History: None Reported - Past Family History Mother Family Medical History: Congestive Heart Failure (CHF) Father Family Medical History: Cancer Brother(s) Family Medical History: Cancer Sister(s) Family Medical History: Cancer General Exam - General Exam Comments Initial Comments: Constitutional: NAD, AOX3, Pt has pleasant affect. HEENT: NC/AT, trachea midline, neck supple, no lymphadenopathy. Posterior pharynx non erythematous, without exudates. External ears appear normal, without discharge. Mucous membranes moist. Eyes PERRLA, EOM intact. There is no scleral icterus. No pallor noted. Cardiopulmonary: RRR, no murmurs, rubs or gallops, no JVD noted. Lungs CTAB in anterior and posterior [place]. No peripheral edema. Abdominal exam: Abdomen soft and non-distended. Abdomen non-tender to palpation in all 4 quadrants. Bowel sounds active in LLQ. No hepatosplenomegaly. No ecchymosis Neuro: CN II-XII intact. No nuchal rigidity. Repeat neuro exam wnl. MSK: No posterior calf tenderness bilaterally, homans sign negative bilaterally. Posterior tibialis and radial pulse +2 bilaterally. Sensation intact in upper and lower extremities. Full active ROM in upper and lower extremities, 5/5 stregnth. Limitations: no limitations Course Vital Signs 12/18/18 12/18/18 12/18/18 14:30 15:30 16:30 Temperature 98.6 F Pulse Rate 102 H 98 99 Pulse Rate [ Sitting] Pulse Rate [ Standing] Pulse Rate [ Supine] Respiratory 20 20 20 Rate Blood Pressure 131/85 130/83 134/56 Blood Pressure [Sitting] Blood Pressure [Standing] Blood Pressure [Supine] O2 Sat by Pulse 99 98 98 Oximetry 12/18/18 12/18/18 12/18/18 17:00 18:00 18:56 Temperature Pulse Rate 96 108 H Pulse Rate [ 93 Sitting] Pulse Rate [ 105 H Standing] Pulse Rate [ 92 Supine] Respiratory 20 20 20 Rate Blood Pressure 150/105 130/92 Blood Pressure 143/82 [Sitting] Blood Pressure 148/74 [Standing] Blood Pressure 124/78 [Supine] O2 Sat by Pulse 96 95 Oximetry 12/18/18 20:00 Temperature Pulse Rate 101 H Pulse Rate [ Sitting] Pulse Rate [ Standing] Pulse Rate [ Supine] Respiratory 16 Rate Blood Pressure 127/87 Blood Pressure [Sitting] Blood Pressure [Standing] Blood Pressure [Supine] O2 Sat by Pulse 96 Oximetry Medical Decision Making - Medical Decision Making 78-year-old male patient past medical history of type 2 diabetes, osteoarthritis presents to ED after a syncopal episode earlier today. Patient reports that he was bent over placing some items in the refrigerator patient reports that upon standing up he became lightheaded and syncopized. Patient unaware if he had any trauma to head. Fall was witnessed, patient had only transient loss of consciousness. Patient currently only complains of some left flank pain where he believes that he may have fallen. Patient is ambulatory without difficulty. Patient denies any headache, changes in vision, pain in neck. Patient denies any chest pain, shortness of breath. Patient denies any abdominal pain, nausea vomiting diarrhea. Patient denies any dysuria. Patient denies all other complaints. Patient vital signs stable. Laboratory investigations revealed non-impressive CBC, CMP, coagulation studies within normal limits, UA non-impressive. Troponin negative. D-dimer elevated at 2.77. CT of brain and cervical spine did not display any acute intracranial abnormality or acute fracture of the cervical spine. Plain film of ribs with PA CXR displayed no rib feacture seen, calcified pleural plaque. No acute long disease. No change compared to old exam. CT chest angiography displayed no evidence of pulmonary embolism. Patchy pleural plaque formation bilaterallyand more on the left side. Findings explained to patient at length. Patient to be admitted for telemetry observation. Patient discussed in depth with Dr. Ferreira. [facility] to [facility] patient family request. - Lab Data Result diagrams: 12/18/18 14:44 12/18/18 14:44 Lab Results 12/18/18 12/18/18 12/18/18 Range/Units 14:44 14:44 14:44 WBC 6.7 (3.8-10.6) k/uL RBC 4.22 L (4.30-5.90) m/uL Hgb 13.2 (13.0-17.5) gm/dL Hct 40.1 (39.0-53.0) % MCV 95.0 (80.0-100.0) fL MCH 31.2 (25.0-35.0) pg MCHC 32.8 (31.0-37.0) g/dL RDW 12.3 (11.5-15.5) % Plt Count 149 L (150-450) k/uL Neutrophils % 64 % Lymphocytes % 22 % Monocytes % 7 % Eosinophils % 4 % Basophils % 0 % Neutrophils # 4.3 (1.3-7.7) k/uL Lymphocytes # 1.5 (1.0-4.8) k/uL Monocytes # 0.5 (0-1.0) k/uL Eosinophils # 0.3 (0-0.7) k/uL Basophils # 0.0 (0-0.2) k/uL PT 10.0 (9.0-12.0) sec INR 0.9 (<1.2) APTT 22.2 (22.0-30.0) sec D-Dimer (<0.60) mg/L FEU Sodium 141 (137-145) mmol/L Potassium 4.6 (3.5-5.1) mmol/L Chloride 109 H (98-107) mmol/L Carbon Dioxide 23 (22-30) mmol/L Anion Gap 9 mmol/L BUN 18 (9-20) mg/dL Creatinine 0.95 (0.66-1.25) mg/dL Est GFR (CKD-EPI)AfAm 89 (>60 ml/min/1.73 sqM) Est GFR (CKD-EPI)NonAf 77 (>60 ml/min/1.73 sqM) Glucose 179 H (74-99) mg/dL Calcium 9.3 (8.4-10.2) mg/dL Magnesium 1.7 (1.6-2.3) mg/dL Total Bilirubin 0.5 (0.2-1.3) mg/dL AST 50 (17-59) U/L ALT 73 H (21-72) U/L Alkaline Phosphatase 79 (38-126) U/L Troponin I (0.000-0.034) ng/mL Total Protein 7.1 (6.3-8.2) g/dL Albumin 4.0 (3.5-5.0) g/dL Urine Color Urine Appearance (Clear) Urine pH (5.0-8.0) Ur Specific [place] (1.001-1.035) Urine Protein (Negative) Urine Glucose (UA) (Negative) Urine Ketones (Negative) Urine Blood (Negative) Urine Nitrite (Negative) Urine Bilirubin (Negative) Urine Urobilinogen (<2.0) mg/dL Ur Leukocyte Esterase (Negative) Urine RBC (0-5) /hpf Urine WBC (0-5) /hpf Ur Squamous Epith Cells (0-4) /hpf Urine Bacteria (None) /hpf Hyaline Casts (0-2) /lpf Granular Casts (0) /lpf Urine Mucus (None) /hpf 12/18/18 12/18/18 12/18/18 Range/Units 14:44 14:44 17:00 WBC (3.8-10.6) k/uL RBC (4.30-5.90) m/uL Hgb (13.0-17.5) gm/dL Hct (39.0-53.0) % MCV (80.0-100.0) fL MCH (25.0-35.0) pg MCHC (31.0-37.0) g/dL RDW (11.5-15.5) % Plt Count (150-450) k/uL Neutrophils % % Lymphocytes % % Monocytes % % Eosinophils % % Basophils % % Neutrophils # (1.3-7.7) k/uL Lymphocytes # (1.0-4.8) k/uL Monocytes # (0-1.0) k/uL Eosinophils # (0-0.7) k/uL Basophils # (0-0.2) k/uL PT (9.0-12.0) sec INR (<1.2) APTT (22.0-30.0) sec D-Dimer 2.77 H (<0.60) mg/L FEU Sodium (137-145) mmol/L Potassium (3.5-5.1) mmol/L Chloride (98-107) mmol/L Carbon Dioxide (22-30) mmol/L Anion Gap mmol/L BUN (9-20) mg/dL Creatinine (0.66-1.25) mg/dL Est GFR (CKD-EPI)AfAm (>60 ml/min/1.73 sqM) Est GFR (CKD-EPI)NonAf (>60 ml/min/1.73 sqM) Glucose (74-99) mg/dL Calcium (8.4-10.2) mg/dL Magnesium (1.6-2.3) mg/dL Total Bilirubin (0.2-1.3) mg/dL AST (17-59) U/L ALT (21-72) U/L Alkaline Phosphatase (38-126) U/L Troponin I <0.012 (0.000-0.034) ng/mL Total Protein (6.3-8.2) g/dL Albumin (3.5-5.0) g/dL Urine Color Yellow Urine Appearance Clear (Clear) Urine pH 5.5 (5.0-8.0) Ur Specific [place] 1.018 (1.001-1.035) Urine Protein Trace H (Negative) Urine Glucose (UA) 1+ H (Negative) Urine Ketones Negative (Negative) Urine Blood Negative (Negative) Urine Nitrite Negative (Negative) Urine Bilirubin Negative (Negative) Urine Urobilinogen <2.0 (<2.0) mg/dL Ur Leukocyte Esterase Trace H (Negative) Urine RBC 1 (0-5) /hpf Urine WBC 5 (0-5) /hpf Ur Squamous Epith Cells <1 (0-4) /hpf Urine Bacteria Occasional H (None) /hpf Hyaline Casts 1 (0-2) /lpf Granular Casts 8 (0) /lpf Urine Mucus Rare H (None) /hpf Disposition Clinical Impression: Syncope Disposition: ADMITTED IP TO THIS [facility] Condition: Serious Is patient prescribed a controlled substance at d/c from ED?: No Decision Time: 19:25
[2018-12-18 15:58] LABS: INR 0.9 (<1.2); Partial Thromboplastin Time 22.2 sec (22.0-30.0)
--- NOTE | 2018-12-18 16:07 | CT ---
EXAMINATION TYPE: CT brain cspine wo con DATE OF EXAM: 12/18/2018 COMPARISON: Brain 01/15/2018 HISTORY: 78-year-old male Syncopal episode CT DLP: 1307.7 mGycm Automated exposure control for dose reduction was used. Technique: Examination of the head was done in axial plane without intravenous contrast. Coronal and sagittal reconstructions performed. CT of the cervical spine was obtained in axial plane without intravenous injection of contrast mater ial. Coronal and sagittal reformatted images were obtained from the axial views for evaluation of f ractures, spinal alignment and canal. FINDINGS: Head: There is no evidence of acute intracranial hemorrhage, acute ischemic changes, mass, mass-effect, or extra-axial fluid collection. There is no effacement of cerebral sulci or basal subarachnoid cister ns. There is no hydrocephalus. There is no midline shift. Pitts-white matter distinction is preserv ed. Redemonstrated right frontal lobe encephalomalacia related to prior infarct. Mild patchy periventricu lar white matter hypodensities relating to chronic small vessel ischemic disease. Leftward nasal septal deviation. Continued moderate mucosal thickening throughout the ethmoid air randall ls and complete opacification of the left frontal sinus. Small air-fluid level left sphenoid sinus. M astoid air cells are well pneumatized. Orbits and globes are intact. Cervical spine: No precervical junction anomaly, predental space widening, or prevertebral soft tissue swelling. Preserved alignment of the cervical spine with bulky bridging anterior endplate spondylosis throughou t and additional scattered ossification of the posterior longitudinal ligament as well. There may be mild narrowing of the spinal canal secondarily at C7-T1. Left paracentral disc osteophyte complex at C3-C4 without significant canal stenosis. There is preserved alignment of the cervical spine. No acute fracture is identified. Variable mild neuroforaminal narrowing throughout. Sagittal and coronal reformatted images confirm above findings. COMBINED IMPRESSION: 1. Stable encephalomalacia related to old right frontal lobe infarct. No acute intracranial abnormali ty seen. 2. No acute fracture or malalignment of the cervical spine. Suspect underlying DISH. 3. Chronic ethmoid and left frontal sinusitis. Given an air-fluid level, correlate for superimposed a cute left sphenoid sinusitis.
--- NOTE | 2018-12-18 16:47 | XR ---
EXAMINATION TYPE: XR ribs bilat w pa chest xray DATE OF EXAM: 12/18/2018 COMPARISON: Chest x-ray 11/21/2017 HISTORY: Fall. Rib pain TECHNIQUE: 9 views FINDINGS: There is no heart failure nor confluent pneumonic infiltrate. There is some calcified pleur al plaque on the left lateral chest wall. There is no pleural effusion or pneumothorax. I see no rib fracture. IMPRESSION: No rib fracture seen. Calcified pleural plaque. No acute lung disease. No change compared to old exam.
[2018-12-18 17:45] LABS: Appearance,Urine Clear (Clear); Bacteria,Urine Occasional /hpf; Bilirubin,Urine Negative (Negative); Blood,Urine Negative (Negative); Color,Urine Yellow; Glucose,Urine (UA) 1+ (Negative); Granular Casts,Urine 8 /lpf (0); Hyaline Casts,Urine 1 /lpf (0-2); Ketones,Urine Negative (Negative); Leukocyte Esterase,Urine Trace (Negative); Mucus,Urine Rare /hpf; Nitrite,Urine Negative (Negative); PH, Urine 5.5 (5.0-8.0); Protein,Urine Trace (Negative); RBC,Urine 1 /hpf (0-5); Specific Gravity,Urine 1.018 (1.001-1.035); Squamous Epithelial Cell,Urine <1 /hpf (0-4); Urobilinogen,Urine <2.0 mg/dL (<2.0)
--- NOTE | 2018-12-18 19:22 | CT ---
EXAMINATION TYPE: CT chest angio for PE DATE OF EXAM: 12/18/2018 COMPARISON: 11/22/2017 HISTORY: Syncopal episode with no other complaints CT DLP: 402.9 mGycm Automated exposure control for dose reduction was used. CONTRAST: CT Chest for pulmonary embolism performed with with IV Contrast, patient injected with 100 mL of Isov ue 300. There are 3-D post processed images. FINDINGS: There is 8 mm noncalcified subpleural nodule superior segment left lower lobe. There is mild pleural plaque on the left lateral chest wall. There is variable calcified pleural plaque. Heart size is norm al. There is no pericardial effusion. There is no mediastinal adenopathy. There is no evidence of thoracic aortic aneurysm or dissection. H eart size is normal. I see no filling defects in the pulmonary arteries. There is no mobile pleural f luid. IMPRESSION: No evidence of pulmonary embolism. Patchy pleural plaque formation bilaterally and more on the left s melinda. There is clearing of the pleural effusions compared to old exam. No evidence of acute lung disea se. Fatty infiltration of the liver.
[2018-12-18] MEDS ORDERED: NITROGLYCERIN SL TABS 0.4 MG TAB SUBLINGUAL PRN (19:25)
[2018-12-18 21:36] LABS: Creatine Kinase 49 U/L (55-170)
[2018-12-18 21:49] LABS: Creatine Kinase MB 0.3 ng/mL (0.0-2.4); Troponin I <0.012 ng/mL (0.000-0.034)
[2018-12-18 22:37] LABS: Cholesterol 223 mg/dL (<200); HDL Cholesterol 52 mg/dL (40-60); LDL Cholesterol,Calculated 99 mg/dL (0-99); Triglycerides 358 mg/dL (<150)
[2018-12-18 23:19] LABS: Glucose,Whole Blood 148 mg/dL (75-99)
[2018-12-18] MEDS ORDERED: IBUPROFEN 400 MG TAB PO PRN (23:39)
--- NOTE | 2018-12-19 03:03 | P.HPIM ---
History of Present Illness H&P Date: 12/18/18 The patient is a 78-year-old male with a PMH of diabetes mellitus, history of CVAs, and osteoarthritis who presented to the ED after an episode of syncope. She notes that he was in his usual state of health and was putting some food in the bottom shelves of the refrigerator when he got up and became lightheaded, grabbed the nearby stove and stool which hit him in the ribs, and he subsequently fell to the ground and lost consciousness for upwards of a minute. The episode was witnessed by his girlfriend. The patient denied urinary or bowel incontinence, or prodrome of chest pain, shortness of breath, or palpitations. Patient denied any abnormal shaking movements, tongue biting, or post ictal confusion. The patient notes that he often gets lightheaded if he stands up too quickly, and did collapse several years ago once. Patient underwent a copy is a workup in the emergency room, with head and cervical spine CT showing stable encephalomalacia following stroke, d-dimer elevated to 2.77, with subsequent chest CTA showing 8 mm noncalcified subpleural nodule. Platelets 149, creatinine 0.95, hemoglobin 13.2, white blood cells 6.7. Review of Systems Pertinent positives and negatives as discussed in HPI, a complete review of systems was performed and all other systems are negative. Past Medical History Past Medical History: Diabetes Mellitus, Osteoarthritis (OA), Respiratory Disorder Additional Past Medical History / Comment(s): ASBESTOSIS/"POSS COPD", CHRONIC TINNITIS, KIDNEY STONES , Type 2 DM, DDD, CHRONIC LOWER BACK PAIN.UTI, RT EYE CATARACT History of Any Multi-Drug Resistant Organisms: None Reported Past Surgical History: Cholecystectomy, Joint Replacement, Orthopedic Surgery Additional Past Surgical History / Comment(s): PINEDA KNEE REPLACMENTS,PINEDA ROT CUFF REPAIR, LEFT CATARACT REMOVED-HAS LENS IMPLANT, ESWL left ureteral calculus 11/2016, X1 DENTAL IMPLANT Past Anesthesia/Blood Transfusion Reactions: Previous Problems w/ Anesthesia Additional Past Anesthesia/Blood Transfusion Reaction / Comment(s): SAT UP "DURING" TOTAL RT KNEE SURGERY Smoking Status: Former smoker - Past Family History Mother Family Medical History: Congestive Heart Failure (CHF) Father Family Medical History: Cancer Brother(s) Family Medical History: Cancer Sister(s) Family Medical History: Cancer Medications and Allergies Home Medications Medication Instructions Recorded Confirmed Type metFORMIN HCL [Glucophage] 1,000 mg PO BID 11/21/17 12/18/18 History Meloxicam 7.5 mg PO DIRECTED PRN 12/18/18 12/18/18 History Allergies Allergy/AdvReac Type Severity Reaction Status Date / Time No Known Allergies Allergy Verified 12/18/18 15:39 Physical Exam Vitals: Vital Signs Temp Pulse Pulse Pulse Pulse Resp BP 12/18/18 20:52 97.4 F L 95 16 12/18/18 20:30 93 105 H 95 16 12/18/18 20:00 101 H 16 127/87 12/18/18 18:56 93 105 H 92 20 12/18/18 18:00 108 H 20 130/92 12/18/18 17:00 96 20 150/105 12/18/18 16:30 99 20 134/56 12/18/18 15:30 98 20 130/83 12/18/18 14:30 98.6 F 102 H 20 131/85 BP BP BP Pulse Ox 12/18/18 20:52 157/90 96 12/18/18 20:30 12/18/18 20:00 96 12/18/18 18:56 143/82 148/74 124/78 12/18/18 18:00 95 12/18/18 17:00 96 12/18/18 16:30 98 12/18/18 15:30 98 12/18/18 14:30 99 Intake and Output 12/18/18 12/18/18 12/19/18 14:59 22:59 06:59 Other: Voiding Method Toilet # Voids 1 Weight 98.883 kg Results CBC & Chem 7: 12/19/18 03:02 12/19/18 03:02 Labs: Abnormal Lab Results - Last 24 Hours (Table) 12/18/18 12/18/18 12/18/18 Range/Units 14:44 14:44 14:44 RBC 4.22 L (4.30-5.90) m/uL Plt Count 149 L (150-450) k/uL D-Dimer 2.77 H (<0.60) mg/L FEU Chloride 109 H (98-107) mmol/L Glucose 179 H (74-99) mg/dL POC Glucose (mg/dL) (75-99) mg/dL ALT 73 H (21-72) U/L Total Creatine Kinase (55-170) U/L Triglycerides (<150) mg/dL Cholesterol (<200) mg/dL Urine Protein (Negative) Urine Glucose (UA) (Negative) Ur Leukocyte Esterase (Negative) Urine Bacteria (None) /hpf Urine Mucus (None) /hpf 12/18/18 12/18/18 12/18/18 Range/Units 14:44 17:00 20:50 RBC (4.30-5.90) m/uL Plt Count (150-450) k/uL D-Dimer (<0.60) mg/L FEU Chloride (98-107) mmol/L Glucose (74-99) mg/dL POC Glucose (mg/dL) (75-99) mg/dL ALT (21-72) U/L Total Creatine Kinase 49 L (55-170) U/L Triglycerides 358 H (<150) mg/dL Cholesterol 223 H (<200) mg/dL Urine Protein Trace H (Negative) Urine Glucose (UA) 1+ H (Negative) Ur Leukocyte Esterase Trace H (Negative) Urine Bacteria Occasional H (None) /hpf Urine Mucus Rare H (None) /hpf 12/18/18 Range/Units 23:17 RBC (4.30-5.90) m/uL Plt Count (150-450) k/uL D-Dimer (<0.60) mg/L FEU Chloride (98-107) mmol/L Glucose (74-99) mg/dL POC Glucose (mg/dL) 148 H (75-99) mg/dL ALT (21-72) U/L Total Creatine Kinase (55-170) U/L Triglycerides (<150) mg/dL Cholesterol (<200) mg/dL Urine Protein (Negative) Urine Glucose (UA) (Negative) Ur Leukocyte Esterase (Negative) Urine Bacteria (None) /hpf Urine Mucus (None) /hpf Thrombosis Risk Factor Assmnt - Choose All That Apply Any of the Below Risk Factors Present?: Yes Each Factor Represents 1 point: Obesity (BMI >25) Other Risk Factors: Yes Each Risk Factor Represents 3 Points: Age 75 years or older Thrombosis Risk Factor Assessment Total Risk Factor Score: 4 Thrombosis Risk Factor Assessment Level: Moderate Risk Assessment and Plan Plan: Syncope, likely orthostatic -We'll obtain orthostatic vital signs -Echocardiogram -Cardiac Monitoring -Fall, seizure, aspiration precautions Diabetes mellitus -Lispro insulin sliding scale, with blood glucose monitoring Thrombocytopenia -Monitor for now DVT//GI prophylaxis -Heparin -No indication for GI prophylaxis The patient is admitted with an anticipated less than 2 midnight stay for evaluation of syncope. CODE STATUS: Full code Discussed with: Patient Anticipated discharge date: 12/21/[address]: Home A total of 40 minutes was spent on the care of this complex patient more than 50 % of the time was spent in counseling and care coordination.
[2018-12-19] MEDS ORDERED: ACETAMINOPHEN TAB 325 MG TAB PO PRN (03:12)
[2018-12-19 03:59] LABS: HCT 37.9 % (39.0-53.0); HGB 12.5 gm/dL (13.0-17.5); MCH 31.5 pg (25.0-35.0); MCHC 33.1 g/dL (31.0-37.0); MCV 95.4 fL (80.0-100.0); Mean Platelet Volume 8.5; Platelet Count 148 k/uL (150-450); RBC 3.97 m/uL (4.30-5.90); RDW 12.2 % (11.5-15.5)
[2018-12-19 04:16] LABS: Calcium 9.4 mg/dL (8.4-10.2); Potassium 4.3 mmol/L (3.5-5.1)
[2018-12-19 04:26] LABS: Creatine Kinase 48 U/L (55-170)
[2018-12-19 04:39] LABS: Creatine Kinase MB 0.3 ng/mL (0.0-2.4); Troponin I <0.012 ng/mL (0.000-0.034)
[2018-12-19 06:35] LABS: Glucose,Whole Blood 183 mg/dL (75-99)
[2018-12-19] MEDS ORDERED: INSULIN ASPART (NovoLOG) 100 UNIT/ML VIAL SQ SCH ×2 (07:30)
[2018-12-19] MEDS ORDERED: HEPARIN SODIUM,PORCINE 5,000 UNIT/ML 1 ML VIAL SQ SCH (08:00)
--- NOTE | 2018-12-19 08:23 | CONS ---
CONSULTATION CHIEF COMPLAINT: Syncope. Salomon is a 78-year-old gentleman with history of diabetes who presents to the hospital having had an episode of syncope at home. The patient was helping his girlfriend move boxes, has done several of them and as he was trying to do the last one suddenly passed out. He passed out for somewhere around a minute came back to it on his own, did not have chest pain, did not have dizziness. No focal neurological deficit. Since being admitted to hospital, he has been doing well and has not had any further episodes of syncope. He did not have any documented cardiac arrhythmias. His labs show that cardiac enzymes are negative. Hemoglobin is 12.5. Potassium is 4.3. Creatinine is 0.95. EKG shows sinus rhythm with bifascicular block and nonspecific ST- T wave changes. The patient had a CTA of the chest and it was negative for thoracic aortic aneurysm dissection or pulmonary embolism. The patient's clinical presentation is consistent with a vasovagal episode of syncope. I am going to check orthostatics if they have not been done. I will obtain a 2D echo and consider an outpatient stress test. PAST MEDICAL HISTORY: Significant for diabetes. MEDICATIONS: Medications at home include metformin and Meloxicam. ALLERGIES: Allergic to no known drug allergies. FAMILY HISTORY: Negative for premature coronary artery disease. SOCIAL HISTORY: Negative for smoking, EtOH abuse, or drug abuse. REVIEW OF SYSTEMS: HEENT is unremarkable. CARDIAC: As described above. RESPIRATORY: Negative. GI: Negative. GENITOURINARY: Negative. ALLERGY/IMMUNOLOGY: Negative. SKIN: Negative. MUSCULOSKELETAL: Significant for arthritis. PSYCHOSOCIAL: Negative. ENDOCRINE: Negative. HEMATOLOGICAL: Negative. DERM: Negative. CONSTITUTIONAL: Negative. ONCOLOGICAL: Negative. Rest of the system review is not relevant. PHYSICAL EXAMINATION: On exam, patient is comfortable at rest. Vital signs are stable. There is no jugular venous distention. Carotid upstroke is normal. There is no bruit. Chest exam reveals good air entry bilaterally. Heart exam reveals first and second heart sounds. No gallop. Abdomen is soft, nontender. Examination of extremities did not reveal edema. Peripheral pulses are felt. [employer] exam did not reveal focal neurological deficits. LABS: Labs show that the hemoglobin is 12.5. Potassium is 4.3. Creatinine is 0.95. Tropes are negative. EKG is abnormal as described above. ASSESSMENT: Syncope, rule out cardiac causes. PLAN: Patient's syncope seems vasovagal in origin. Pulmonary embolism is ruled out. No documented cardiac arrhythmia. Myocardial infarction is ruled out. I will obtain a 2D echo and consider discharge home later today. Check orthostatics. Discharge home later today and outpatient followup and possible outpatient stress test. MMODL / IJN: [id number] /
[2018-12-19 08:35] VITALS: RESP 18
[2018-12-19] MEDS ORDERED: ASPIRIN 325 MG TAB PO SCH (09:00)
--- NOTE | 2018-12-19 09:29 | ECHOF ---
Referral Reason:syncope MEASUREMENTS -------- HEIGHT: 177.8 cm WEIGHT: 98.9 kg BP: RVIDd: 3.6 cm (< 3.3) IVSd: 1.1 cm (0.6 - 1.1) LVIDd: 4.2 cm (3.9 - 5.3) LVPWd: 1.1 cm (0.6 - 1.1) IVSs: 1.4 cm LVIDs: 3.3 cm LVPWs: 1.3 cm LAESV Index (A-L): 22.59 ml/m Ao Diam: 3.7 cm (2.0 - 3.7) AV Cusp: 1.3 cm (1.5 - 2.6) LA Diam: 3.3 cm (2.7 - 3.8) MV EXCURSION: 21.171 mm (> 18.000) MV EF SLOPE: 94 mm/s (70 - 150) EPSS: 0.5 cm MV E Sb: 1.12 m/s MV DecT: 226 ms MV A Sb: 0.00 m/s MV E/A Ratio: 262.86 AV maxP.27 mmHg AV meanP.52 mmHg RAP: 5.00 mmHg RVSP: 24.39 mmHg FINDINGS -------- Undetermined rhythm. This was a technically difficult study with suboptimal views. The left ventricular size is normal. There is borderline concentric left ventricular hypertrophy. Overall left ventricular systolic function is low-normal with, an EF between 50 - 55 %. The right ventricle is mildly enlarged. Normal LA size by volume 22+/-6 ml/m2. RA appears enlarged. 3 ml of Lumason was utilized for enhancement of images. There is mild aortic valve sclerosis. There is no evidence of aortic regurgitation. There is mild aortic stenosis present. Peak/mean gradient across the Aortic Valve is 17.27mmHg / 11.52mmHg. The mitral valve leaflets are mildly thickened. There is trace to mild mitral regurgitation. Trace tricuspid regurgitation present. Right ventricular systolic pressure is normal at < 35 mmHg. There is no evidence of pulmonary hypertension. The pulmonic valve was not well visualized. The aortic root size is normal. IVC Not well visulized. There is a small pericardial effusion located near the left ventricle. CONCLUSIONS -------- 1. Undetermined rhythm. 2. This was a technically difficult study with suboptimal views. 3. The left ventricular size is normal. 4. There is borderline concentric left ventricular hypertrophy. 5. Overall left ventricular systolic function is low-normal with, an EF between 50 - 55 %. 6. The right ventricle is mildly enlarged. 7. Normal LA size by volume 22+/-6 ml/m2. 8. RA appears enlarged. 9. 3 ml of Lumason was utilized for enhancement of images. 10. There is mild aortic valve sclerosis. 11. There is no evidence of aortic regurgitation. 12. There is mild aortic stenosis present. 13. Peak/mean gradient across the Aortic Valve is 17.27mmHg / 11.52mmHg. 14. The mitral valve leaflets are mildly thickened. 15. There is trace to mild mitral regurgitation. 16. Trace tricuspid regurgitation present. 17. Right ventricular systolic pressure is normal at < 35 mmHg. 18. There is no evidence of pulmonary hypertension. 19. The pulmonic valve was not well visualized. 20. The aortic root size is normal. 21. IVC Not well visulized. 22. There is a small pericardial effusion located near the left ventricle. DRILLING AND PRODUCTION SUPERINTENDENT: Bruce Tom RDCS
[2018-12-19] MEDS ORDERED: SODIUM CHLORIDE 0.9% 1,000 ML IV SCH (11:00)
--- NOTE | 2018-12-19 11:30 | P.PN ---
Subjective Progress Note Date: 12/19/18 Principal diagnosis: syncopal episode patient seen and examined. No acute events overnight. Patient reports no dizziness, but has not moved out of bed since admission. He denies any chest pain, shortness of breath or palpitations. Patient states that he was helping his lady friend stock items, crouched down and felt lightheaded as he was standing up. Objective - Vital Signs Vital signs: Vital Signs Temp 97.9 F 12/19/18 07:00 Pulse 105 H 12/19/18 07:00 Resp 18 12/19/18 07:00 BP 124/80 12/19/18 08:20 Pulse Ox 94 L 12/19/18 07:00 Intake & Output 12/18/18 12/19/18 12/19/18 18:59 06:59 18:59 Intake Total 400 Balance 400 Weight 98.883 kg Intake: Oral 400 Other: Voiding Method Toilet # Voids 1 - Exam General: [non toxic], [no distress], [appears at stated age] Derm: [warm], [dry] Head: [atraumatic], [normocephalic], [symmetric] Eyes: [EOMI], [no lid lag], [anicteric sclera] Mouth: [no lip lesion], [mucus membranes moist] Cardiovascular: [S1S2 reg], [tachycardia], [positive DP pulse bilateral], Lungs: [CTA bilateral], [no rhonchi, no rales] , [no accessory muscle use] Abdominal: [soft], [ nontender to palpation], [no guarding], [no appreciable organomegaly] Ext: [no gross muscle atrophy], [no edema], [no contractures] Neuro: [no focal neuro deficits] Psych: [Alert], [oriented], [appropriate affect] - Labs CBC & Chem 7: 12/19/18 03:02 12/19/18 03:02 Labs: Abnormal Lab Results - Last 24 Hours (Table) 12/18/18 12/18/18 12/18/18 Range/Units 14:44 14:44 14:44 RBC 4.22 L (4.30-5.90) m/uL Hgb (13.0-17.5) gm/dL Hct (39.0-53.0) % Plt Count 149 L (150-450) k/uL D-Dimer 2.77 H (<0.60) mg/L FEU Chloride 109 H (98-107) mmol/L Glucose 179 H (74-99) mg/dL POC Glucose (mg/dL) (75-99) mg/dL ALT 73 H (21-72) U/L Total Creatine Kinase (55-170) U/L Triglycerides (<150) mg/dL Cholesterol (<200) mg/dL Urine Protein (Negative) Urine Glucose (UA) (Negative) Ur Leukocyte Esterase (Negative) Urine Bacteria (None) /hpf Urine Mucus (None) /hpf 12/18/18 12/18/18 12/18/18 Range/Units 14:44 17:00 20:50 RBC (4.30-5.90) m/uL Hgb (13.0-17.5) gm/dL Hct (39.0-53.0) % Plt Count (150-450) k/uL D-Dimer (<0.60) mg/L FEU Chloride (98-107) mmol/L Glucose (74-99) mg/dL POC Glucose (mg/dL) (75-99) mg/dL ALT (21-72) U/L Total Creatine Kinase 49 L (55-170) U/L Triglycerides 358 H (<150) mg/dL Cholesterol 223 H (<200) mg/dL Urine Protein Trace H (Negative) Urine Glucose (UA) 1+ H (Negative) Ur Leukocyte Esterase Trace H (Negative) Urine Bacteria Occasional H (None) /hpf Urine Mucus Rare H (None) /hpf 12/18/18 12/19/18 12/19/18 Range/Units 23:17 03:02 03:02 RBC 3.97 L (4.30-5.90) m/uL Hgb 12.5 L (13.0-17.5) gm/dL Hct 37.9 L (39.0-53.0) % Plt Count 148 L (150-450) k/uL D-Dimer (<0.60) mg/L FEU Chloride (98-107) mmol/L Glucose (74-99) mg/dL POC Glucose (mg/dL) 148 H (75-99) mg/dL ALT (21-72) U/L Total Creatine Kinase 48 L (55-170) U/L Triglycerides (<150) mg/dL Cholesterol (<200) mg/dL Urine Protein (Negative) Urine Glucose (UA) (Negative) Ur Leukocyte Esterase (Negative) Urine Bacteria (None) /hpf Urine Mucus (None) /hpf 12/19/18 12/19/18 Range/Units 03:02 06:33 RBC (4.30-5.90) m/uL Hgb (13.0-17.5) gm/dL Hct (39.0-53.0) % Plt Count (150-450) k/uL D-Dimer (<0.60) mg/L FEU Chloride 108 H (98-107) mmol/L Glucose 168 H (74-99) mg/dL POC Glucose (mg/dL) 183 H (75-99) mg/dL ALT (21-72) U/L Total Creatine Kinase (55-170) U/L Triglycerides (<150) mg/dL Cholesterol (<200) mg/dL Urine Protein (Negative) Urine Glucose (UA) (Negative) Ur Leukocyte Esterase (Negative) Urine Bacteria (None) /hpf Urine Mucus (None) /hpf Assessment and Plan Assessment: Assessment and Plan 1. Syncopal episode 2. Diabetes mellitus 3. Pleural nodule 4. Anemia 1. Seems like orthostatic or vasovagal from history. Orthostats are positive this morning. Troponin is less than 0.0122, EKG showing sinus tachycardia and RBBB. CTA chest excludes PE. Cardiology consulted, recommends echocardiogram. Echocardiogram shows EF of 50-55% with borderline LVH. Will bolus 1 L and start normal saline at 100 mL/h. Telemetry monitoring, fall and seizure precautions. Check orthostats in the afternoon. 2. Start insulin sliding scale. Hyperglycemia precautions. Regular Accu- Cheks. Follow A1c. 3. Incidental finding on CTA chest. Needs adequate outpatient follow-up. 4. Hemoglobin 12.5 from 13.2 on admission. Likely dilutional. Transfuse when hemoglobin on 7. Patient admitted for syncopal episode. ACS ruled out. Likely orthostatic. Will bolus 1 L, recheck orthostats. Possible DC in the afternoon.
[2018-12-19 11:46] LABS: Glucose,Whole Blood 133 mg/dL (75-99)
[2018-12-19 12:31] VITALS: TEMP 98.1
[2018-12-19 13:33] VITALS: BP 127/63
[2018-12-19 13:36] VITALS: PULSE 105
[2018-12-19 14:59] LABS: Hemoglobin A1C 6.9 % (4.0-6.0)
== END 2018-12-19 14:38 | disposition home or self-care (01) ==
LOC: EC 14:15 → 1SOBS 19:46
PROVIDERS: ADMIT Internal Medicine; ATTEND Internal Medicine
DX: R55 Syncope and collapse (principal); D64.9 Anemia, unspecified; D69.6 Thrombocytopenia, unspecified; E11.9 Type 2 diabetes mellitus without complications; G93.89 Other specified disorders of brain; I45.10 Unspecified right bundle-branch block; I45.2 Bifascicular block; M19.90 Unspecified osteoarthritis, unspecified site; H93.19 Tinnitus, unspecified ear; M54.5 Low back pain; G89.29 Other chronic pain; R91.1 Solitary pulmonary nodule; H26.9 Unspecified cataract; W19.XXXA Unspecified fall, initial encounter; Z79.84 Long term (current) use of oral hypoglycemic drugs; Z82.49 Family history of ischemic heart disease and other diseases of the circulatory system; Z86.73 Personal history of transient ischemic attack (TIA), and cerebral infarction without residual deficits; Z87.442 Personal history of urinary calculi; Z87.891 Personal history of nicotine dependence; Z87.440 Personal history of urinary (tract) infections; Z90.49 Acquired absence of other specified parts of digestive tract; Z98.42 Cataract extraction status, left eye; Z96.1 Presence of intraocular lens; Z97.2 Presence of dental prosthetic device (complete) (partial); Z96.653 Presence of artificial knee joint, bilateral
CPT/HCPCS: 96361; 99285; 36415; 93005; 85379; 80061; 80053; 80048; 82550 ×2; 82553 ×2; 83735; 84484 ×2; 85025; 85027; 85610; 85730; 81001; 83036; 71111; 72125; 70450; 71275; G0378 ×2; C8929; Q9950; Q9967; 93306

== ENCOUNTER 2020-01-23 10:35 | Inpatient (IN) | payer MEDICARE ==
--- NOTE | 2020-01-23 11:08 | ED ---
General Adult HPI - General Stated complaint: Weakness Time Seen by Provider: 01/23/20 10:50 Source: patient, RN notes reviewed, old records reviewed Mode of arrival: EMS Limitations: no limitations - History of Present Illness Initial comments: 79-year-old male presenting for evaluation generalized weakness and fatigue. Symptoms have been ongoing for several months. Patient was seen by his primary care physician had laboratory testing. Patient found by EMS to be bradycardic. On initial evaluation he is denying chest pain, denying dyspnea, night fever or chills. No abdominal pain nausea vomiting. No focal numbness or weakness. Patient is currently on metformin and Mobic. He is not on any calcium channel blockers or beta blockers. He has been urinating normally. No history of renal failure. His only complaint of generalized weakness and fatigue. - Related Data Home Medications Medication Instructions Recorded Confirmed RX: metFORMIN HCL [Glucophage] 1,000 mg PO BID 11/21/17 01/23/20 RX: Meloxicam 7.5 mg PO BID PRN 12/18/18 01/23/20 Fluticasone Nasal [place] [Flonase 2 spr EA NOSTRIL DAILY 01/23/20 01/23/20 Nasal [place]] Meclizine [Antivert] 12.5 mg PO BID 01/23/20 01/23/20 Oxybutynin Chloride [Ditropan] 2.5 mg PO BID 01/23/20 01/23/20 Allergies Allergy/AdvReac Type Severity Reaction Status Date / Time No Known Allergies Allergy Verified 01/23/20 10:54 Review of Systems ROS Statement: Those systems with pertinent positive or pertinent negative responses have been documented in the HPI. ROS Other: All systems not noted in ROS Statement are negative. Past Medical History Past Medical History: Diabetes Mellitus, Osteoarthritis (OA), Respiratory Disorder Additional Past Medical History / Comment(s): ASBESTOSIS/"POSS COPD", CHRONIC TINNITIS, KIDNEY STONES , Type 2 DM, DDD, CHRONIC LOWER BACK PAIN.UTI, RT EYE CATARACT History of Any Multi-Drug Resistant Organisms: None Reported Past Surgical History: Cholecystectomy, Joint Replacement, Orthopedic Surgery Additional Past Surgical History / Comment(s): PINEDA KNEE REPLACMENTS,PINEDA ROT CUFF REPAIR, LEFT CATARACT REMOVED-HAS LENS IMPLANT, ESWL left ureteral calculus 11/2016, X1 DENTAL IMPLANT Past Anesthesia/Blood Transfusion Reactions: Previous Problems w/ Anesthesia Additional Past Anesthesia/Blood Transfusion Reaction / Comment(s): SAT UP "DURING" TOTAL RT KNEE SURGERY Past Psychological History: No Psychological Hx Reported Smoking Status: Former smoker - Past Family History Mother Family Medical History: Congestive Heart Failure (CHF) Father Family Medical History: Cancer Brother(s) Family Medical History: Cancer Sister(s) Family Medical History: Cancer General Exam Limitations: no limitations General appearance: alert, in no apparent distress Head exam: Present: atraumatic, normocephalic Eye exam: Present: normal appearance, PERRL ENT exam: Present: mucous membranes dry Neck exam: Present: normal inspection. Absent: tenderness, meningismus Respiratory exam: Present: normal lung sounds bilaterally. Absent: respiratory distress, wheezes Cardiovascular Exam: Present: normal rhythm, bradycardia GI/Abdominal exam: Present: soft. Absent: distended, tenderness, guarding, rebound Extremities exam: Present: normal inspection, normal capillary refill. Absent: calf tenderness Neurological exam: Present: alert, oriented X3, CN II-XII intact, motor sensory deficit (45 weakness in the left lower extremity) Psychiatric exam: Present: normal affect, normal mood Skin exam: Present: warm, dry, intact, pallor. Absent: cyanosis, diaphoretic Course Vital Signs 01/23/20 01/23/20 01/23/20 10:51 11:47 12:00 Temperature 98.4 F Pulse Rate 30 L 31 L 32 L Respiratory 18 22 Rate Blood Pressure 133/44 118/86 118/86 O2 Sat by Pulse 97 98 Oximetry - Reevaluation(s) Reevaluation #1: 01/23/20 11:[address] [place], covering for cardiology regarding second degree type II heart block. Reevaluation #2: 01/23/20 13:14 Patient had complained of left lower extremity weakness, he is able to move the leg but this is more weak than the right. This symptom is been present for greater than [address] is performed which is negative for intracranial hemorrhage or mass effect, showed chronic changes and old right frontal infarct. CT angiography has been ordered and is pending. EKG Findings - EKG Comments: EKG Findings:: EKG: Sinus rhythm with second-degree type II heart block with 3-1 AV conduction, left axis deviation, nonspecific QRS widening no ST segment elevation, rate of 30, NH interval 208, QRS duration 1:30, QTC 438, previous EKG showing a bifascicular block with no second-degree block. Medical Decision Making - Medical Decision Making 79-year-old male presenting in second degree type II heart block. Initial stable blood pressure. Heart rate in the 30s. He is evaluated by cardiology in the emergency department. Only complaint is generalized weakness with some focal weakness in the left leg. Head CT is performed which is negative for intracranial hemorrhage or mass effect. CT angiography is pending. Patient is well outside the TPA window, he is given an aspirin in the emergency department, neurology is placed on consult. Patient will be taken for pacemaker placement at 3 PM. He is kept nothing by mouth. I did discuss case with the admitting physician Dr. Mobley - Lab Data Result diagrams: 01/23/20 11:00 01/23/20 11:00 Lab Results 01/23/20 01/23/20 01/23/20 Range/Units 11:00 11:00 11:00 WBC 7.7 (3.8-10.6) k/uL RBC 4.16 L (4.30-5.90) m/uL Hgb 12.9 L (13.0-17.5) gm/dL Hct 39.0 (39.0-53.0) % MCV 93.6 (80.0-100.0) fL MCH 31.1 (25.0-35.0) pg MCHC 33.2 (31.0-37.0) g/dL RDW 12.2 (11.5-15.5) % Plt Count 133 L (150-450) k/uL Neutrophils % 69 % Lymphocytes % 19 % Monocytes % 7 % Eosinophils % 3 % Basophils % 0 % Neutrophils # 5.4 (1.3-7.7) k/uL Lymphocytes # 1.5 (1.0-4.8) k/uL Monocytes # 0.5 (0-1.0) k/uL Eosinophils # 0.2 (0-0.7) k/uL Basophils # 0.0 (0-0.2) k/uL PT 10.2 (9.0-12.0) sec INR 1.0 (<1.2) APTT 23.3 (22.0-30.0) sec Sodium 140 (137-145) mmol/L Potassium 4.6 (3.5-5.1) mmol/L Chloride 109 H (98-107) mmol/L Carbon Dioxide 22 (22-30) mmol/L Anion Gap 9 mmol/L BUN 21 H (9-20) mg/dL Creatinine 0.93 (0.66-1.25) mg/dL Est GFR (CKD-EPI)AfAm >90 (>60 ml/min/1.73 sqM) Est GFR (CKD-EPI)NonAf 79 (>60 ml/min/1.73 sqM) Glucose 135 H (74-99) mg/dL Calcium 9.6 (8.4-10.2) mg/dL Magnesium 1.7 (1.6-2.3) mg/dL Total Bilirubin 0.5 (0.2-1.3) mg/dL AST 29 (17-59) U/L ALT 23 (4-49) U/L Alkaline Phosphatase 72 (38-126) U/L Troponin I (0.000-0.034) ng/mL Total Protein 7.0 (6.3-8.2) g/dL Albumin 4.1 (3.5-5.0) g/dL TSH (0.465-4.680) mIU/L 01/23/20 01/23/20 Range/Units 11:00 11:00 WBC (3.8-10.6) k/uL RBC (4.30-5.90) m/uL Hgb (13.0-17.5) gm/dL Hct (39.0-53.0) % MCV (80.0-100.0) fL MCH (25.0-35.0) pg MCHC (31.0-37.0) g/dL RDW (11.5-15.5) % Plt Count (150-450) k/uL Neutrophils % % Lymphocytes % % Monocytes % % Eosinophils % % Basophils % % Neutrophils # (1.3-7.7) k/uL Lymphocytes # (1.0-4.8) k/uL Monocytes # (0-1.0) k/uL Eosinophils # (0-0.7) k/uL Basophils # (0-0.2) k/uL PT (9.0-12.0) sec INR (<1.2) APTT (22.0-30.0) sec Sodium (137-145) mmol/L Potassium (3.5-5.1) mmol/L Chloride (98-107) mmol/L Carbon Dioxide (22-30) mmol/L Anion Gap mmol/L BUN (9-20) mg/dL Creatinine (0.66-1.25) mg/dL Est GFR (CKD-EPI)AfAm (>60 ml/min/1.73 sqM) Est GFR (CKD-EPI)NonAf (>60 ml/min/1.73 sqM) Glucose (74-99) mg/dL Calcium (8.4-10.2) mg/dL Magnesium (1.6-2.3) mg/dL Total Bilirubin (0.2-1.3) mg/dL AST (17-59) U/L ALT (4-49) U/L Alkaline Phosphatase (38-126) U/L Troponin I <0.012 (0.000-0.034) ng/mL Total Protein (6.3-8.2) g/dL Albumin (3.5-5.0) g/dL TSH 2.270 (0.465-4.680) mIU/L Critical Care Time Critical Care Time: Yes Total Critical Care Time: 35 Disposition Clinical Impression: Second degree type II atrioventricular block, CVA (cerebral vascular accident) Disposition: ADMITTED IP TO THIS HOSP Condition: Serious Is patient prescribed a controlled substance at d/c from ED?: No
[2020-01-23 11:24] LABS: ALT 23 U/L (4-49); AST 29 U/L (17-59); African American GFR (CKD) >90 (>60 ml/min/1.73 sqM); Albumin 4.1 g/dL (3.5-5.0); Alkaline Phosphatase 72 U/L (38-126); Anion Gap 9 mmol/L; Blood Urea Nitrogen 21 mg/dL (9-20); Calcium 9.6 mg/dL (8.4-10.2); Carbon Dioxide 22 mmol/L (22-30); Chloride 109 mmol/L (98-107); Glucose 135 mg/dL (74-99); Magnesium 1.7 mg/dL (1.6-2.3); Non-African American GFR(CKD) 79 (>60 ml/min/1.73 sqM); Potassium 4.6 mmol/L (3.5-5.1); Sodium 140 mmol/L (137-145); Total Bilirubin 0.5 mg/dL (0.2-1.3)
[2020-01-23 11:30] LABS: Basophils % (A) 0 %; Eosinophils # (A) 0.2 k/uL (0-0.7); Eosinophils % (A) 3 %; HGB 12.9 gm/dL (13.0-17.5); Lymphocytes # (A) 1.5 k/uL (1.0-4.8); Lymphocytes % (A) 19 %; MCH 31.1 pg (25.0-35.0); MCHC 33.2 g/dL (31.0-37.0); MCV 93.6 fL (80.0-100.0); Monocytes # (A) 0.5 k/uL (0-1.0); Monocytes % (A) 7 %; Neutrophils # (A) 5.4 k/uL (1.3-7.7); Neutrophils % (A) 69 %; Partial Thromboplastin Time 23.3 sec (22.0-30.0); Platelet Count 133 k/uL (150-450); Prothrombin Time 10.2 sec (9.0-12.0); RBC 4.16 m/uL (4.30-5.90); RDW 12.2 % (11.5-15.5); WBC 7.7 k/uL (3.8-10.6)
--- NOTE | 2020-01-23 11:37 | XR ---
EXAMINATION TYPE: XR chest 1V portable DATE OF EXAM: 01/23/2020 COMPARISON: Chest x-ray and CTA chest December 18, 2018. HISTORY: Dysrhythmia. TECHNIQUE: Single AP portable frontal upright view of the chest is obtained. FINDINGS: There is chronic probable change bilaterally without suspicious new focal airspace opacity , pleural effusion, or pneumothorax seen bilaterally. Left-sided calcified pleural plaques are redemo nstrated. The cardiac silhouette size remains mildly enlarged with atherosclerotic aorta. The osseo us structures are demineralized. S-shaped scoliosis. Cholecystectomy clips are seen. Metallic anchors right humeral head level are present. IMPRESSION: Chronic parenchymal changes and mild cardiomegaly without acute pulmonary process.
[2020-01-23] MEDS ORDERED: ASPIRIN 325 MG TAB PO STA (11:47)
[2020-01-23] MEDS ORDERED: ceFAZolin 1,000 MG in SODIUM CHLORIDE 0.9% IRRIGATIO 250 ML IRRIGATION ONE (12:00)
--- NOTE | 2020-01-23 12:00 | P.CRDCN ---
History of Present Illness Consult date: 01/23/20 Requesting physician: Alexsander García Reason for Consult (text): High degree AV block Chief complaint: Dizziness, syncope History of present illness: This is a pleasant 79-year-old gentleman with documented history of diabetes. Who has been experiencing intermittent dizziness with subsequent syncopal episodes for the past 2 months or so. He states that he's been following with Dr. Smith, neurology, as an outpatient to determine the cause of these episodes. He had a recent admission to the hospital here in December after the patient had experienced a syncopal episode. His EKG on that admission showed a sinus tachycardia with a right bundle branch block pattern and left an terior fascicular block. He also had an echo that admission which showed an ejection fraction of 50-55%. The patient was discharged home with recommendation to follow-up in the office with a stress test. He presents to the hospital on this occasion following another syncopal episode. Patient sta ricki he's been extremely dizzy, and passed out. As of last night he also has some weakness in his left leg, for which she feels it difficult to move. He did fall onto that left side this morning. His EKG on presentation to the emergency room showed a second-degree AV block with 3 to one AV conduction. The monitor in his room at present is showing a high degree AV block. Chest x-ray did not reveal any acute pulmonary process. Blood pressure 118/80 with a heart rate of 30, 97% on room air. Orthostatics were obtained in the emergency room which came back to be negative. White blood cell count is normal, hemoglobin 12.9, platelet count 133. Sodium 140, potassium 4.6, BUN 21, creatinine 0.9. Magnesium 1.7, troponin 0.012. Patient was seen in consultation by Dr. [place] and recommended to undergo implantation of a permanent pacemaker. This will be performed today at 2:[address] Galindo. The risks and benefits were explained to the patient in detail we will also give his sister a call. Past Medical History Past Medical History: Diabetes Mellitus, Osteoarthritis (OA), Respiratory Disorder Additional Past Medical History / Comment(s): ASBESTOSIS/"POSS COPD", CHRONIC TINNITIS, KIDNEY STONES , Type 2 DM, DDD, CHRONIC LOWER BACK PAIN.UTI, RT EYE CATARACT History of Any Multi-Drug Resistant Organisms: None Reported Past Surgical History: Cholecystectomy, Joint Replacement, Orthopedic Surgery Additional Past Surgical History / Comment(s): PINEDA KNEE REPLACMENTS,PINEDA ROT CUFF REPAIR, LEFT CATARACT REMOVED-HAS LENS IMPLANT, ESWL left ureteral calculus 11/2016, X1 DENTAL IMPLANT Past Anesthesia/Blood Transfusion Reactions: Previous Problems w/ Anesthesia Additional Past Anesthesia/Blood Transfusion Reaction / Comment(s): SAT UP "DURING" TOTAL RT KNEE SURGERY Past Psychological History: No Psychological Hx Reported Smoking Status: Former smoker - Past Family History Mother Family Medical History: Congestive Heart Failure (CHF) Father Family Medical History: Cancer Brother(s) Family Medical History: Cancer Sister(s) Family Medical History: Cancer Medications and Allergies Home Medications Medication Instructions Recorded Confirmed Type metFORMIN HCL [Glucophage] 1,000 mg PO BID 11/21/17 12/18/18 History Meloxicam 7.5 mg PO DIRECTED PRN 12/18/18 12/18/18 History Allergies Allergy/AdvReac Type Severity Reaction Status Date / Time No Known Allergies Allergy Verified 01/23/20 10:54 Physical Exam Vitals: Vital Signs Temp Pulse Resp BP Pulse Ox 01/23/20 11:47 31 L 118/86 01/23/20 10:51 98.4 F 30 L 18 133/44 97 Intake and Output 01/22/20 01/23/20 01/23/20 22:59 06:59 14:59 Other: Weight 96.615 kg PHYSICAL EXAMINATION: GENERAL: 89-year-old gentleman in no acute distress at the time of my examination HEENT: Head is atraumatic, normocephalic. Pupils equal, round. Sclera anicteric. Conjunctiva are clear. Mucous membranes of the mouth are moist. Neck is supple. There is no elevated jugular venous pressure. No carotid bruit is heard. HEART EXAMINATION: Heart S1, S2 normal. No murmur or gallop heard. CHEST EXAMINATION: Lungs are clear to auscultation and precussion. No chest wall tenderness is noted on palpation or with deep breathing. ABDOMEN: Soft, nontender. Bowel sounds are heard. No organomegaly noted. EXTREMITIES: 2+ peripheral pulses with no evidence of peripheral edema and no calf tenderness noted. Patient does have a difficulty raising the left leg, he is able to bend at the knee, and his foot forward and backwards. NEUROLOGIC patient is awake, alert and oriented 3 . Results 01/23/20 11:00 01/23/20 11:00 Cardiac Enzymes 01/23/20 Range/Units 11:00 AST 29 (17-59) U/L Coagulation 01/23/20 Range/Units 11:00 PT 10.2 (9.0-12.0) sec APTT 23.3 (22.0-30.0) sec CBC 01/23/20 Range/Units 11:00 WBC 7.7 (3.8-10.6) k/uL RBC 4.16 L (4.30-5.90) m/uL Hgb 12.9 L (13.0-17.5) gm/dL Hct 39.0 (39.0-53.0) % Plt Count 133 L (150-450) k/uL Comprehensive Metabolic Panel 01/23/20 Range/Units 11:00 Sodium 140 (137-145) mmol/L Potassium 4.6 (3.5-5.1) mmol/L Chloride 109 H (98-107) mmol/L Carbon Dioxide 22 (22-30) mmol/L BUN 21 H (9-20) mg/dL Creatinine 0.93 (0.66-1.25) mg/dL Glucose 135 H (74-99) mg/dL Calcium 9.6 (8.4-10.2) mg/dL AST 29 (17-59) U/L ALT 23 (4-49) U/L Alkaline Phosphatase 72 (38-126) U/L Total Protein 7.0 (6.3-8.2) g/dL Albumin 4.1 (3.5-5.0) g/dL Current Medications Generic Name Dose Route Start Last Admin Trade Name Freq PRN Reason Stop Dose Admin Aspirin 325 mg 01/23/20 11:47 Aspirin PO 01/23/20 11:48 ONCE STA Intake and Output 01/22/20 01/23/20 01/23/20 22:59 06:59 14:59 Other: Weight 96.615 kg Patient Weight 01/24/20 06:59 Weight 96.615 kg 01/23/20 11:00 01/23/20 11:00 EKG Interpretations (text) EKG shows a second-degree type II heart block with 3 to one conduction Assessment and Plan Plan: Assessment and plan #1 several episodes of syncope with evidence of high degree AV block #2 weakness of the left leg #3 diabetes Plan We will obtain an echocardiogram with Doppler study. ER physician is also ordered a CAT scan of the brain with contrast. Patient is been advised to undergo implantation of a permanent pacemaker, risks and benefits were explained to him in detail, this will be performed today by Dr. Galindo. Further recommendations to follow. DNP note has been reviewed, I agree with a documented findings and plan of care. Patient was seen and examined.
[2020-01-23] MEDS ORDERED: NALOXONE 0.4 MG/ML 1 ML VIAL IV PRN (12:44)
--- NOTE | 2020-01-23 12:47 | ECHOF ---
Referral Reason: MEASUREMENTS -------- HEIGHT: 182.9 cm WEIGHT: 96.6 kg BP: IVSd: 1.4 cm (0.6 - 1.1) LVIDd: 3.3 cm (3.9 - 5.3) LVPWd: 1.5 cm (0.6 - 1.1) IVSs: 1.4 cm LVIDs: 2.0 cm LVPWs: 1.5 cm Ao Diam: 3.4 cm (2.0 - 3.7) AV Cusp: 1.7 cm (1.5 - 2.6) LA Diam: 2.8 cm (2.7 - 3.8) MV E Sb: 0.83 m/s MV DecT: 188 ms MV A Sb: 0.34 m/s MV E/A Ratio: 2.42 AV maxP.45 mmHg AV meanP.02 mmHg RAP: 5.00 mmHg RVSP: 17.60 mmHg FINDINGS -------- Resting bradycardia (HR<60bpm). This was a technically good study. The left ventricular size is normal. There is moderate concentric left ventricular hypertrophy. O verall left ventricular systolic function is low-normal with, an EF between 50 - 55 %. The right ventricle is normal in size. The left atrial size is normal. The right atrial size is normal. Aneurysmal Interatrial septum. Aortic valve is trileaflet and is moderately thickened. There is moderate aortic stenosis present. Peak/mean gradient across the Aortic Valve is 27.45mmHg / 18.02mmHg. The mitral valve is normal. The mitral valve leaflets are mildly thickened. Mild mitral regurgita tion is present. The tricuspid valve appears structurally normal. Mild tricuspid regurgitation present. Right vent ricular systolic pressure is normal at < 35 mmHg. There is no pulmonic regurgitation present. The aortic root size is normal. Normal inferior vena cava with normal inspiratory collapse consistent with estimated right atrial pre ssure of 5 mmHg. There is no pericardial effusion. CONCLUSIONS -------- 1. Resting bradycardia (HR<60bpm). 2. This was a technically good study. 3. The left ventricular size is normal. 4. There is moderate concentric left ventricular hypertrophy. 5. Overall left ventricular systolic function is low-normal with, an EF between 50 - 55 %. 6. The right ventricle is normal in size. 7. The left atrial size is normal. 8. The right atrial size is normal. 9. Aneurysmal Interatrial septum. 10. Aortic valve is trileaflet and is moderately thickened. 11. There is moderate aortic stenosis present. 12. Peak/mean gradient across the Aortic Valve is 27.45mmHg / 18.02mmHg. 13. The mitral valve is normal. 14. The mitral valve leaflets are mildly thickened. 15. Mild mitral regurgitation is present. 16. The tricuspid valve appears structurally normal. 17. Mild tricuspid regurgitation present. 18. Right ventricular systolic pressure is normal at < 35 mmHg. 19. There is no pulmonic regurgitation present. 20. The aortic root size is normal. 21. Normal inferior vena cava with normal inspiratory collapse consistent with estimated right atrial pressure of 5 mmHg. 22. There is no pericardial effusion. MACHINE HEEL SEAT FITTER: Tati Rae RDCS
--- NOTE | 2020-01-23 12:51 | CT ---
EXAMINATION TYPE: CT brain wo con DATE OF EXAM: 01/23/2020 HISTORY: weakness and fatigue. CT DLP: 1132.8 mGycm. Automated Exposure Control for Dose Reduction was Utilized. TECHNIQUE: CT scan of the head is performed without contrast. COMPARISON: CT brain December 18, 2018 and older CTs. MRI brain January 19, 2018. FINDINGS: Localizer shows metallic anchors right humeral head from prior rotator cuff surgery. Ther e is no acute intracranial hemorrhage or midline shift identified. There is diffuse ventricular and s ulcal prominence consistent with diffuse age-related cerebral atrophy. There is low-attenuation in t he periventricular white matter consistent with chronic small vessel ischemic change. Old infarct inf erior right frontal lobe is present. Nmiv-yd-rpytrvtm mucosal thickening involving ethmoid sinuses bi laterally. Remainder paranasal sinuses are clear. Globes are intact bilaterally. IMPRESSION: No acute intracranial hemorrhage or midline shift. There is mild diffuse age-related ce rebral atrophy and mild to moderate chronic small vessel ischemic change along with old right frontal lobe infarct are all redemonstrated.
--- NOTE | 2020-01-23 13:14 | CT ---
EXAMINATION TYPE: CT angio head neck DATE OF EXAM: 01/23/2020 HISTORY: Altered mental status COMPARISON: CT brain of the same date CT DLP: 580.3 mGycm. Automated Exposure Control for Dose Reduction was Utilized. TECHNIQUE: CTA scan of the neck is performed with IV Contrast, patient injected with 100 mL of Isovu e 370, axial images are obtained, coronal and sagittal reformatted images are reviewed. Three-D recon structed images are created on an independent workstation and reviewed. FINDINGS: Carotid/Vascular Structures: Minimal atherosclerosis is seen in the left carotid bulb, less than 50% stenosis and nonhemodynamically significant. The remainder of the common carotid arteries, internal c arotid arteries in their cervical portions, and right carotid bulb or patent without hemodynamically significant stenosis. The vertebral arteries are also patent with slight dominance on the right. Ther e is three-vessel conventional radiograph of the aortic arch. No hemodynamically significant stenosis or intracranial aneurysm is seen of the interarterial intracranial vasculature. Posterior to indicat ing arteries are seen and patent. [place] is intact. Other: Mild centrilobular emphysematous change of the lung apices. Severe degenerative disc disease o f the cervical spine is seen with flowing anterior osteophytes relating to diffuse idiopathic hyperos tosis. The multifocal encephalomalacia is described on the CT brain of the same date. IMPRESSION: No hemodynamically significant stenosis, aneurysmal outpouching or occlusion of the mahad r arterial vasculature of the head or neck.
[2020-01-23] MEDS: SODIUM CHLORIDE 0.9% 1,000 ML IV SCH ×3 (13:24→16:46)
[2020-01-23] MEDS ORDERED: fentaNYL (PF) 50 MCG/ML 2 ML AMP ONE (14:13)
[2020-01-23] MEDS ORDERED: LIDOCAINE 1% INJ 10MG/ML (20 ML MDV) ONE ×2 (14:13→14:35)
[2020-01-23] MEDS: fentaNYL (PF) 50 MCG/ML 2 ML AMP IV ONE ×2 (14:16→14:41)
[2020-01-23] MEDS: MIDAZOLAM 2 MG/2 ML VIAL IV ONE ×2 (14:16→14:41)
[2020-01-23] MEDS ORDERED: LIDOCAINE 1% INJ 10MG/ML (20 ML MDV) SQ ONE (14:19)
[2020-01-23] MEDS ORDERED: IV FLUID CONTINUATION 1,000 ML IV ONE (14:21)
[2020-01-23] MEDS ORDERED: IOPAMIDOL-250 100ML BTL IV ONE (14:26)
--- NOTE | 2020-01-23 14:34 | P.PCN ---
Date of Procedure: 01/23/20 Preoperative Diagnosis: Ankle pain, high degree AV block with a severe bradycardia Postoperative Diagnosis: The same Procedure(s) Performed: Temporary pacemaker implantation Description of Procedure: This is 79-year-old gentleman is admitted to the hospital with an episode of syncope and evidence of high degree AV block 3 to one conduction and severe bradycardia with rates of 30. Patient had a similar is syncope about a month ago. Patient is advised to have permanent pacemaker implantation. Patient also advised to have a temporary pacemaker prior to permanent pacemaker implantation. Temporary pacemaker insertion: Patient was brought to the lab in a fasting state. He was prepped and draped in the usual fashion. Patient was given IV Versed 0.5 mg and fentanyl 12.5 g. The skin and the right groin is infiltrated with a lidocaine. The right femoral vein was entered using Seldinger technique. A 6-Stateless sheath was left in place. A 5-Stateless balloontipped permanent pacemaker, wire was advanced under fluoroscopy and was placed in the right ventricle. Satisfactory position was obtained. Thresholds were adequate. The pacemaker was set at a rate of 50 and output of 3. No immediate complications. Final impression: #1. Successful implantation of temporary pacemaker under fluoroscopy
[2020-01-23] MEDS ORDERED: ACETAMINOPHEN TAB 325 MG TAB PO PRN (15:45)
--- NOTE | 2020-01-23 15:55 | P.PCN ---
Date of Procedure: 01/23/20 Preoperative Diagnosis: High degree AV block, syncope and bradycardia Postoperative Diagnosis: The same Procedure(s) Performed: Axillary venography, temporary pacemaker implantation and dual-chamber permanent pacemaker implantation Description of Procedure: HISTORY: This is a 79-year-old gentleman with history of diabetes and previous CVA was admitted to the hospital with recurrent syncope. Patient was noted to have high degree AV block with a 2 to one conduction and severe bradycardia. A permanent pacemaker insertion was requested by Dr. VC Birmingham. Patient also required temporary pacemaker implantation which was already done. CONSENT:I have discussed the risks, benefits and alternative therapies for the above-mentioned procedure and for both sedation/analgesia as well as necessary blood product administration, if indicated, as they pertain to this patient. The patient has indicated understanding and acceptance of the risks and procedures discussed. PROCEDURE: Patient was brought to the lab in a fasting state. Patient was prepped and draped in the usual fashion. Patient was given IV sedation with fentanyl and Versed. The skin below the left clavicle was infiltrated with lidocaine. An incision was made parallel to deltopectoral groove was deepened until the pectoral fascia was exposed. A pocket was created by blunt dissection and cautery. Axillary venography was performed to delineate the course of the axillary vein. 2 sticks were performed into extrathoracic portion of the axillary vein and 2 sheaths were advanced over the guidewires and left in subclavian vein. Conscious Sedation: Versed 1mg Fentanyl 25 g Duration 65minutes LEADS: ATRIAL: This is manufactured by [employer]. Model number is 5076-52 and the serial number is [id number] VENTRICULAR: This is manufactured by [email or web address]. Model number is 5076-58 and the serial number is [id number] THE DEVICE: This is manufactured by [email or web address]. Model number is [id number] and the serial number is [id number]. The ventricular lead is maneuvered l with help of a straight and curved stylets into the left ventricle apical region. Satisfactory position was obtained and threshold measurements were made. The atrial lead was then maneuvered into the right atrial appendage. And thresholds were obtained.Both leads were screwed in leads THRESHOLDS: ATRIUM: The minimum pacing threshold was 0.9 at a pulse width of 0.5 with impedance of 789 P-wave:2.7 VENTRICLE: The minimum patient threshold is 1.1 at also width of 0.5. The R-wave is 16.7 and the impedance is 1200 The leads and pulse generator remained in the pocket after it was washed with antibiotics. Pocket was closed in the usual fashion. The fascia was closed with 2-0 Prolene ,the subcutaneous tissue was closed with 3-0 Prolene and the skin was closed with 4-0 Prolene. PROGRAMMING: MODE: DDDR RATE: 60- 130 OUTPUT: Atrium : 3.5 V Ventricle: 3.5 V FINAL IMPRESSION: #1. Temporary pacemaker implantation #2. Axillary venography #3. Dual-chamber permanent pacemaker implantation COMPLICATIONS: None PLAN: Continue to monitor him on the telemetry unit. Continue prophylactic antibiotics. Possible discharge within next 24-48 hours, Depending upon the clinical course.
[2020-01-23 16:57] LABS: Glucose,Whole Blood 139 mg/dL (75-99)
--- NOTE | 2020-01-23 17:14 | P.CNNES ---
History of Present Illness Consult date: 01/23/20 Requesting physician: Aneesh Quintero Reason for Consult: CVA History of Present Illness: Patient is a 79-year-old male, who states that last night at 10:30 PM, he was getting out of chair to go to his bed at night, when he felt the left leg was weak, felt like "paralyzed". He still managed to go back to his bed, and slept. This morning he woke up, got out of bed, tried to walk to the front room, but lost balance, as his left leg would not move. He fell down. Patient believes that he may have passed out just for a couple seconds as well. He was brought to the hospital, and arrived at the hospital today at 10:35 AM. Patient also mentions that he has noticed some left arm weakness. Denies any slurred speech or facial droop. Patient denies any dizziness or lightheadedness, although he believes that he has an inner ear problems gets dizzy off and on. Patient underwent Chest x-ray showed chronic parenchymal changes and mild cardiomegaly, without acute pulmonary process. 2-D echo showed normal left- ventricular size. Moderate concentric LVH. Overall left ventricular systolic function is low normal, 50-55%. Left atrial size is normal. Aneurysmal interatrial septum. Aortic valve is trileaflet and is moderately thickened. Moderate aortic stenosis. EKG shows sinus rhythm with second degree AV block with 3-1 AV conduction. Left axis deviation. Left-ventricular hypertrophy. Nonspecific T wave abnormality. Computed tomography scan of head showed no acute process. There is mild diffuse age-related cerebral atrophy and [id number]-qu-zoqdinhk chronic small vessel ischemic changes along with old right frontal lobe infarct. CTA of head and neck showed no hemodynamically significant stenosis, aneurysmal outpouchings or occlusion of the major arterial vasculature of the head or neck.patient's hemoglobin A1c 6.9 on 12/19/2018. Total cholesterol 223, LDL 99, HDL 52 and triglycerides 358 on 12/18/2018. TSH is normal. patient has history of diabetes for the last 3 years, denies hypertension. He has history of a stroke 15 years ago. Patient has history of smoking half pack per day for 10 years, quit in 1986. He drinks alcohol very slightly. Patient does take aspirin 81 mg every day for the last 10 years. Patient still feels weakness in the left leg. He had undergone pacemaker placement for secondary heart block. Review of Systems As per HPI in detail.denies chest pain, shortness of breath, diplopia. Denies loss of vision. Denies slurred speech dysphagia. Patient has pain in the left arm because of recent pacemaker placement. Denies abdominal pain nausea vomiting diarrhea. Past Medical History Past Medical History: Diabetes Mellitus, Osteoarthritis (OA), Respiratory Disorder Additional Past Medical History / Comment(s): ASBESTOSIS/"POSS COPD", CHRONIC TINNITIS, KIDNEY STONES , Type 2 DM, DDD, CHRONIC LOWER BACK PAIN.UTI, RT EYE CATARACT History of Any Multi-Drug Resistant Organisms: None Reported Past Surgical History: Cholecystectomy, Joint Replacement, Orthopedic Surgery Additional Past Surgical History / Comment(s): PINEDA KNEE REPLACMENTS,PINEDA ROT CUFF REPAIR, LEFT CATARACT REMOVED-HAS LENS IMPLANT, ESWL left ureteral calculus 11/2016, X1 DENTAL IMPLANT Past Anesthesia/Blood Transfusion Reactions: Previous Problems w/ Anesthesia Additional Past Anesthesia/Blood Transfusion Reaction / Comment(s): SAT UP "DURING" TOTAL RT KNEE SURGERY Past Psychological History: No Psychological Hx Reported Smoking Status: Former smoker - Past Family History Mother Family Medical History: Congestive Heart Failure (CHF) Father Family Medical History: Cancer Brother(s) Family Medical History: Cancer Sister(s) Family Medical History: Cancer Medications and Allergies Home Medications Medication Instructions Recorded Confirmed Type metFORMIN HCL [Glucophage] 1,000 mg PO BID 11/21/17 01/23/20 History Meloxicam 7.5 mg PO BID PRN 12/18/18 01/23/20 History Fluticasone Nasal [place] [Flonase 2 spr EA NOSTRIL DAILY 01/23/20 01/23/20 History Nasal [place]] Meclizine [Antivert] 12.5 mg PO BID 01/23/20 01/23/20 History Oxybutynin Chloride [Ditropan] 2.5 mg PO BID 01/23/20 01/23/20 History Allergies Allergy/AdvReac Type Severity Reaction Status Date / Time No Known Allergies Allergy Verified 01/23/20 10:54 Physical Examination - Vital Signs Vital Signs: Vital Signs Temp Pulse Resp BP Pulse Ox 01/23/20 13:23 98.1 F 30 L 16 152/58 98 01/23/20 12:00 32 L 22 118/86 98 01/23/20 11:47 31 L 118/86 01/23/20 10:51 98.4 F 30 L 18 133/44 97 Intake and Output 01/23/20 01/23/20 01/23/20 06:59 14:59 22:59 Intake Total 125 Balance 125 Intake: IV 125 Other: Weight 96.615 kg On examination patient is an elderly male, in no distress. Patient is alert and awake, fully oriented to time place and person. Speech and language functions are normal. Attention and concentration fund of knowledge is adequate. On cranial examination pupils are round and reacting to light, visual [place] are full, extraocular muscles are intact with no nystagmus. Face is symmetric and tongue protrudes to midline. Palatal elevation sensation normal. Hearing is normal for routine conversation. On muscle strength testing and left arm could not be checked because of recent pacemaker placement. His nurses supervisor however appears slightly weaker on the left as compared to the right. In the lower extremities ankles and toes are normal. Hip flexion is about 3+ to 4 on the left, normal on the right. Adduction and abduction appears normal. Sensory to touch is equal. Reflexes are diminished and plantar is downgoing on the right whereas Babinski on the left. Toe no ataxia for [id number] on the right. Tone and bulk of muscles normal. Gait deferred. No carotid bruit, S1 and S2 audible. Mild peripheral edema. Results - Laboratory Findings CBC and BMP: 01/23/20 11:00 01/23/20 11:00 Abnormal Lab Findings: Abnormal Labs 01/23/20 01/23/20 11:00 11:00 RBC 4.16 L Hgb 12.9 L Plt Count 133 L Chloride 109 H BUN 21 H Glucose 135 H Assessment and Plan Assessment: * 79-year-old male admitted with possible CVA with left arm and leg weakness. Also found to have second-degree AV block, for which he had undergone pac emaker placement today. Computed tomography scan of head showed old encephalomalacia in the right frontal lobe. CTA of head and neck showed no significant stenosis. * Diabetes * Hyperlipidemia * Status post pacemaker placement. * Moderate aortic stenosis. Plan: * Patient cannot have MRI now because of undergoing pacemaker placement today. * patient has been on aspirin 81 mg daily for the last 10 years. Consider dual antiplatelet medication for a month, then may continue aspirin 81 mg, 2 tablets daily thereafter. * Patient has moderate aortic stenosis, for which cardiology is following. * Consider Holter monitoring to rule out other arrhythmias, like atrial fibrillation. * We will check hemoglobin A1c. * Dr. Damian covering me over the weekend.
[2020-01-23 20:17] LABS: Glucose,Whole Blood 208 mg/dL (75-99)
[2020-01-23] MEDS: OXYBUTYNIN CHLORIDE 5 MG TAB PO SCH (20:55)
--- NOTE | 2020-01-23 22:26 | P.HPIM ---
History of Present Illness H&P Date: 01/23/20 Chief Complaint: Left-sided weakness History of presenting complaint: This is a pleasant 79-year-old patient of Dr. Alexsander Rees. Chronic stable medical conditions include diabetes, osteoarthritis of the lumbosacral spine, COPD, chronic tinnitus, asbestosis. Patient will yesterday sitting in the chair when he suddenly noticed that his left leg had become paralyzed also notices weakness in the left arm. No change in speech. Decided to come to the ER. He was noticed to be in threes to 1 heart block. permanent pacemaker placed. There is some improvement in his left arm and left leg. No change in speech headache or vision. No change in swallowing. Seen by neurology. Review of systems: GEN.: None EYES: None HEENT: Decreased hearing NECK: None RESPIRATORY: None CARDIOVASCULAR: None GASTROINTESTINAL: None GENITOURINARY: None MUSCULOSKELETAL: Chronic low back pain LYMPHATICS: None HEMATOLOGICAL: None PSYCHIATRY: None NEUROLOGICAL: [As above Past medical history to include: Diabetes, lumbosacral osteoarthritis, COPD, nephrolithiasis surgical treatment, chronic tinnitus, asbestosis Social history: Smoked from ages 18-1986. Lives alone. Alcohol occasionally. Physical examination: VITAL SIGNS: 98.4, 30, 18, blood pressure 133/44, pulse of 98% on room air-on presentation GENERAL: BMI 30.6, laying in bed, awake. EYES: Pupils equal. Conjunctiva normal. HEENT: External appearance of nose and ears normal, oral cavity grossly normal. Decreased hearing NECK: JVD not raised; masses not palpable. HEART: First and second heart sounds are normal; no edema. LUNGS: Respiratory rate normal; decreased breath sounds. CHEST wall: Pacemaker with a dressing ABDOMEN: Soft, nontender, liver spleen not palpable, no masses palpable. PSYCH: Alert and oriented x3; mood and affect normal. NEUROLOGICAL: [Cranial nerves grossly intact; no facial asymmetry, power in the left like 3/5. Part of the left arm 4/5. Reflexes equally vocal. LYMPHATICS: No lymph nodes palpable in the axilla and neck INVESTIGATIONS, reviewed in the clinical context: White count 7.7 hemoglobin 12.9 platelets 133 potassium 4.6 creatinine 0.93 Troponin I is less than 0.012, 0.096 TSH 2.2 EKG tracing personally reviewed by me-threes to 1 block Chest [id number] cough, changes CT scan of brain-old infarct inferior right frontal lobe CT angiogram and neck-positive is stenosis 2-D echo-year 50-55%, moderate left ventricular hypertrophy Assessment: -Acute stroke in the right MCA territory with left-sided weakness with some improvement -Symptomatic threes to 1 heart block-patient also permanent pacemaker -Hypertensive heart disease -Lumbosacral DJD -Diabetes mellitus type 2 on oral hypoglycemic to 11-asbestosis -Chronic tinnitus Plan: Patient status post pacemaker placement. Patient already been on aspirin. Plavix was added. We will also add Lipitor 40 mg. Check lipid profile. Consult PTOT. Care was discussed with the patient question were answered. Lovenox for DVT prophylaxis. Cardiology and neurology consultation Past Medical History Past Medical History: Diabetes Mellitus, Hypertension, Osteoarthritis (OA), Respiratory Disorder Additional Past Medical History / Comment(s): ASBESTOSIS/"POSS COPD", CHRONIC TINNITIS, KIDNEY STONES , Type 2 DM, DDD, CHRONIC LOWER BACK PAIN.UTI, RT EYE CATARACT History of Any Multi-Drug Resistant Organisms: None Reported Past Surgical History: Cholecystectomy, Joint Replacement, Orthopedic Surgery Additional Past Surgical History / Comment(s): PINEDA KNEE REPLACMENTS,PINEDA ROT CUFF REPAIR, LEFT CATARACT REMOVED-HAS LENS IMPLANT, ESWL left ureteral calculus 11/2016, X1 DENTAL IMPLANT, [employer] PACEMAKER 01/23/20 Past Anesthesia/Blood Transfusion Reactions: Previous Problems w/ Anesthesia Additional Past Anesthesia/Blood Transfusion Reaction / Comment(s): SAT UP "DURING" TOTAL RT KNEE SURGERY Past Psychological History: No Psychological Hx Reported Additional Psychological History / Comment(s): PT LIVES ALONE IN [facility], PT IS INDEPENDANT. DRIVES, NO HOME CARE SERVICES, NO MEDICAL EQUIPMENT USED. Smoking Status: Former smoker Past Alcohol Use History: Occasional Additional Past Alcohol Use History / Comment(s): QUIT SMOKING 1986, STARTED SMOKING AT AGE 18, SMOKED 1/2 PPD. Past Drug Use History: None Reported - Past Family History Mother Family Medical History: Congestive Heart Failure (CHF) Father Family Medical History: Cancer Brother(s) Family Medical History: Cancer Sister(s) Family Medical History: Cancer Medications and Allergies Home Medications Medication Instructions Recorded Confirmed Type metFORMIN HCL [Glucophage] 1,000 mg PO BID 11/21/17 01/23/20 History Meloxicam 7.5 mg PO BID PRN 12/18/18 01/23/20 History Fluticasone Nasal [place] [Flonase 2 spr EA NOSTRIL DAILY 01/23/20 01/23/20 History Nasal [place]] Meclizine [Antivert] 12.5 mg PO BID 01/23/20 01/23/20 History Oxybutynin Chloride [Ditropan] 2.5 mg PO BID 01/23/20 01/23/20 History Allergies Allergy/AdvReac Type Severity Reaction Status Date / Time No Known Allergies Allergy Verified 01/23/20 10:54 Physical Exam Vitals: Vital Signs Temp Pulse Pulse Resp BP BP Pulse Ox 01/23/20 20:05 97 18 138/72 97 01/23/20 20:00 97.9 F 97 18 141/77 98 01/23/20 19:05 92 18 141/77 98 01/23/20 18:05 99 18 148/74 100 01/23/20 17:35 79 18 130/69 98 01/23/20 17:05 79 18 131/79 99 01/23/20 16:50 75 20 130/69 98 01/23/20 16:35 74 20 135/78 98 01/23/20 16:20 97.4 F L 74 18 140/76 98 01/23/20 16:00 20 01/23/20 13:23 98.1 F 30 L 16 152/58 98 01/23/20 12:00 32 L 22 118/86 98 01/23/20 11:47 31 L 118/86 01/23/20 10:51 98.4 F 30 L 18 133/44 97 Intake and Output 01/23/20 01/23/20 01/23/20 06:59 14:59 22:59 Intake Total 125 240 Output Total 125 Balance 125 115 Intake: IV 125 Oral 240 Output: Urine 125 Other: Voiding Method Urinal Weight 96.615 kg 96.615 kg Results CBC & Chem 7: 01/23/20 11:00 01/23/20 11:00 Labs: Abnormal Lab Results - Last 24 Hours (Table) 01/23/20 01/23/20 01/23/20 Range/Units 11:00 11:00 16:56 RBC 4.16 L (4.30-5.90) m/uL Hgb 12.9 L (13.0-17.5) gm/dL Plt Count 133 L (150-450) k/uL Chloride 109 H (98-107) mmol/L BUN 21 H (9-20) mg/dL Glucose 135 H (74-99) mg/dL POC Glucose (mg/dL) 139 H (75-99) mg/dL Troponin I (0.000-0.034) ng/mL 01/23/20 01/23/20 Range/Units 17:39 20:14 RBC (4.30-5.90) m/uL Hgb (13.0-17.5) gm/dL Plt Count (150-450) k/uL Chloride (98-107) mmol/L BUN (9-20) mg/dL Glucose (74-99) mg/dL POC Glucose (mg/dL) 208 H (75-99) mg/dL Troponin I 0.096 H* (0.000-0.034) ng/mL Thrombosis Risk Factor Assmnt - Choose All That Apply Any of the Below Risk Factors Present?: Yes Each Factor Represents 1 point: Medical pt on bed rest, Obesity (BMI >25), Ser ious lung disease incl. pneumonia (< 1month) Other Risk Factors: Yes Each Risk Factor Represents 3 Points: Age 75 years or older Other congenital or acquired thrombophilia - If yes, enter type in comment: No Thrombosis Risk Factor Assessment Total Risk Factor Score: 6 Thrombosis Risk Factor Assessment Level: High Risk
[2020-01-24 00:20] LABS: Hemoglobin A1C 5.9 % (4.0-6.0)
[2020-01-24] MEDS: ATORVASTATIN 40 MG TAB PO SCH ×2 (03:34→22:29)
[2020-01-24 04:45] VITALS: RESP 16
[2020-01-24 06:21] LABS: Glucose,Whole Blood 147 mg/dL (75-99)
[2020-01-24 06:37] LABS: Cholesterol 185 mg/dL (<200); HDL Cholesterol 61 mg/dL (40-60); LDL Cholesterol,Calculated 101 mg/dL (0-99); Triglycerides 115 mg/dL (<150)
--- NOTE | 2020-01-24 06:53 | XR ---
EXAMINATION TYPE: XR chest 2V DATE OF EXAM: 01/24/2020 HISTORY: Lead placement check. REFERENCE: Previous study dated 01/23/2020. FINDINGS: A bipolar pacemaker has been inserted via a left subclavian approach. Approximately overlie s the right atrium and the distal lead overlies the right ventricle. The heart is not enlarged. There are chronic parenchymal changes. I do not see evidence of pneumonia or edema. No significant pleural fluid is seen. No pneumothorax is evident. IMPRESSION: I DO NOT SEE A POST PACEMAKER INSERTION COMPLICATION.
[2020-01-24] MEDS: CLOPIDOGREL 75 MG TAB PO SCH (08:30)
[2020-01-24] MEDS: ASPIRIN 81 MG PO SCH (08:30)
[2020-01-24] MEDS: metFORMIN 500 MG TAB PO SCH ×2 (08:30→22:29)
[2020-01-24] MEDS: OXYBUTYNIN CHLORIDE 5 MG TAB PO SCH ×2 (08:30→22:29)
[2020-01-24] MEDS: ENOXAPARIN 40 MG/0.4 ML SYRINGE SQ SCH (08:31)
[2020-01-24] MEDS: SODIUM CHLORIDE 0.9% 1,000 ML IV SCH ×2 (08:31→08:32)
[2020-01-24] MEDS: FLUTICASONE 50MCG/SPRAY NASAL 16GM EA NOSTRIL SCH (08:36)
[2020-01-24 10:19] VITALS: BMI 28.1
--- NOTE | 2020-01-24 11:05 | PN ---
PROGRESS NOTE This patient came with a history of syncope. Patient was in high degree AV block and underwent permanent pacemaker. Patient also complained of left leg weakness. He has a history of prior stroke. The CT scan did not show any evidence of a new stroke. Patient's left leg weakness has improved. Most likely patient could have a mild TIA or low TIA secondary to low perfusion and syncope with the weakness on the left side. We will have physical therapy, the patient to ambulate the patient. If the patient remains stable, he can be discharged home tomorrow. The patient will continue aspirin and Plavix for 4 weeks. MMODL / IJN: [id number] /
[2020-01-24] MEDS: LOSARTAN 50 MG TAB PO SCH (11:39)
[2020-01-24 11:53] LABS: Glucose,Whole Blood 135 mg/dL (75-99)
--- NOTE | 2020-01-24 13:35 | P.PN ---
Subjective Progress Note Date: 01/24/20 The patient reports doing better today. He continues to feel as if his left side is somewhat weak. He was able to get up into the bedside chair with assistance. He says he has been able to walk however, not quickly. The patient denies changes in vision, speech, paresthesias and swallowing. Objective - Vital Signs Vital signs: Vital Signs Temp 98.2 F 01/24/20 11:50 Pulse 77 01/24/20 11:50 Resp 16 01/24/20 11:50 BP 164/72 01/24/20 11:50 Pulse Ox 96 01/24/20 11:50 Intake & Output 01/23/20 01/24/20 01/24/20 18:59 06:59 18:59 Intake Total 365 180 Output Total 575 300 Balance 365 -575 -120 Weight 96.615 kg 89 kg 89 kg Intake: IV 125 Oral 240 180 Output: Urine 575 300 Other: Voiding Method Urinal Urinal Urinal - Exam General: The patient is seated in the bedside chair. He is well-nourished, well-developed and in no acute distress. HEENT: Head is atraumatic, normocephalic. Fundus not visualized. There is no scleral icterus. His memories are moist. Heart: Regular rate and rhythm Neurological examination Mental status: Patient is awake, alert and oriented 3. His speech is clear. He is able to accurately repeat phrases. Cranial nerves: Pupils are equal, round and reactive to light. Visual [place] are full to confrontation. Extracting muscles are intact. There is no nystagmus. Facial sensation is intact. There is no facial asymmetry. Hearing is grossly intact. Shoulder shrug is symmetric. Tongue protrudes midline. Motor: Right upper and lower extremity strength 5/5. Left sports intern strength 4/5. Left lower extremity strength 4/5. Sensation: Grossly intact to light touch Gait: Not assessed - Labs CBC & Chem 7: 01/23/20 11:00 01/23/20 11:00 Labs: Abnormal Lab Results - Last 24 Hours (Table) 01/23/20 01/23/20 01/23/20 Range/Units 16:56 17:39 20:14 POC Glucose (mg/dL) 139 H 208 H (75-99) mg/dL Troponin I 0.096 H* (0.000-0.034) ng/mL LDL Cholesterol, Calc (0-99) mg/dL HDL Cholesterol (40-60) mg/dL 01/24/20 01/24/20 01/24/20 Range/Units 05:33 06:20 11:42 POC Glucose (mg/dL) 147 H 135 H (75-99) mg/dL Troponin I (0.000-0.034) ng/mL LDL Cholesterol, Calc 101 H (0-99) mg/dL HDL Cholesterol 61 H (40-60) mg/dL Assessment and Plan Assessment: Impressions: 1. Left hemiparesis, likely secondary to right lacunar infarct 2. Bradycardia, status post pacemaker placement 3. Reported history of stroke 4. Diabetes mellitus Plan: Recommendations: 1. The patient should be discharged home on aspirin 81 mg with the addition of Plavix 75 mg. He should take these 2 medications together for 3 weeks. After 3 weeks' time, the patient should discontinue the aspirin and continue Plavix. 2. Patient should be started on high-dose statin for further stroke prevention 3. The patient to be started on physical and occupational therapy 4. All of the patient's questions were answered Time with Patient: Less than 30 (spent 25 minutes with the patient via teleneurology)
--- NOTE | 2020-01-24 16:37 | P.PN ---
Progress Note - Text Progress Note Date: 01/24/20 Chief Complaint: Left-sided weakness History of presenting complaint: This is a pleasant 79-year-old patient of Dr. Alexsander Rees. Chronic stable medical conditions include diabetes, osteoarthritis of the lumbosacral spine, COPD, chronic tinnitus, asbestosis. Patient will yesterday sitting in the chair when he suddenly noticed that his left leg had become paralyzed also notices weakness in the left arm. No change in speech. Decided to come to the ER. He was noticed to be in threes to 1 heart block. permanent pacemaker placed. There is some improvement in his left arm and left leg. No change in speech headache or vision. No change in swallowing. Seen by neurology. Admitted with threes to 1 heart block resulting in a pacemaker. Also acute stroke affecting the left side of the body. Today-some more improvement in the left-sided weakness. No new issues. PTOT of the case. Review of systems: Was done for constitutional, cardiovascular, GI, pulmonary. Neurologic, relevant finding as above Active Medications Acetaminophen (Tylenol Tab) 650 mg PO Q6HR PRN PRN Reason: Mild Pain Aspirin (Aspirin) 81 mg PO DAILY [facility] Last Admin: 01/24/20 08:30 Dose: 81 mg Documented by: Atorvastatin Calcium (Lipitor) 40 mg PO HS [facility] Last Admin: 01/24/20 03:34 Dose: 40 mg Documented by: Clopidogrel Bisulfate (Plavix) 75 mg PO DAILY [facility] Last Admin: 01/24/20 08:30 Dose: 75 mg Documented by: Enoxaparin Sodium (Lovenox) 40 mg SQ DAILY [facility] Last Admin: 01/24/20 08:31 Dose: 40 mg Documented by: Fluticasone Propionate (Flonase Nasal [place]) 2 spray EA NOSTRIL DAILY [facility] Last Admin: 01/24/20 08:36 Dose: Not Given Documented by: Sodium Chloride (Saline 0.9%) 1,000 mls @ 50 mls/hr IV .Q20H [facility] Last Admin: 01/24/20 08:31 Dose: 50 mls/hr Documented by: Sodium Chloride (Saline 0.9%) 1,000 mls @ 50 mls/hr IV .Q20H [facility] Last Admin: 01/24/20 08:32 Dose: Not Given Documented by: Losartan Potassium (Cozaar) 50 mg PO DAILY [facility] Last Admin: 03/21/20 11:39 Dose: 50 mg Documented by: Metformin HCl (Glucophage) 1,000 mg PO BID [facility] Last Admin: 01/24/20 08:30 Dose: 1,000 mg Documented by: Naloxone HCl (Narcan) 0.2 mg IV Q2M PRN PRN Reason: Opioid Reversal Oxybutynin Chloride (Ditropan) 2.5 mg PO BID [facility] Last Admin: 01/24/20 08:30 Dose: 2.5 mg Documented by: Sodium Chloride (Saline Flush) 10 ml IV Q12HR [facility] Last Admin: 01/24/20 08:36 Dose: Not Given Documented by: Physical examination: VITAL SIGNS: 98.2, 77, 16, blood pressure 139/73, 95% on room air GENERAL: BMI 30.6, sitting up comfortable EYES: Pupils equal. Conjunctiva normal. HEENT: External appearance of nose and ears normal, oral cavity grossly normal. Decreased hearing NECK: JVD not raised; masses not palpable. HEART: First and second heart sounds are normal; no edema. LUNGS: Respiratory rate normal; decreased breath sounds. CHEST wall: Pacemaker with a dressing ABDOMEN: Soft, nontender, liver spleen not palpable, no masses palpable. PSYCH: Alert and oriented x3; mood and affect normal. NEUROLOGICAL: [Cranial nerves grossly intact; no facial asymmetry, power in the left leg 3/5. Part of the left arm 4/5. INVESTIGATIONS, reviewed in the clinical context: LDL-101 Previous testing White count 7.7 hemoglobin 12.9 platelets 133 potassium 4.6 creatinine 0.93 Troponin I is less than 0.012, 0.096 TSH 2.2 EKG tracing personally reviewed by me-threes to 1 block Chest [id number]-khtaijn cough, changes CT scan of brain-old infarct inferior right frontal lobe CT angiogram and neck-positive is stenosis 2-D echo-year 50-55%, moderate left ventricular hypertrophy Assessment: -Acute stroke in the right MCA territory with left-sided weakness with some improvement -Symptomatic threes to 1 heart block-patient also permanent pacemaker -Hypertensive heart disease -Lumbosacral DJD -Diabetes mellitus type 2 on oral hypoglycemic -asbestosis -Chronic tinnitus Plan: Continue current medication treatment plan. PTOT of the case. We will repeat a computed tomography scan of the brain. Without contrast. Care was discussed with the patient.
--- NOTE | 2020-01-24 17:22 | CT ---
EXAMINATION TYPE: CT brain wo con DATE OF EXAM: 01/24/2020 COMPARISON: Yesterday HISTORY: left side weakness CT DLP: 1099.4 mGycm Automated exposure control for dose reduction was used. Exam performed without contrast. There is 4 cm area of hypodensity in the lateral right frontal lobe related to old cortical infarct. There is no mass effect nor midline shift. There is no evidence of intracranial hemorrhage. The keri rium is intact. There is mild cerebral atrophy. IMPRESSION: Old right frontal lobe cortical infarct unchanged. Cerebral atrophy. No acute intracranial abnormalit y.
[2020-01-25] MEDS: OXYBUTYNIN CHLORIDE 5 MG TAB PO SCH (08:33)
[2020-01-25] MEDS: metFORMIN 500 MG TAB PO SCH (08:33)
[2020-01-25] MEDS: ENOXAPARIN 40 MG/0.4 ML SYRINGE SQ SCH (08:33)
[2020-01-25] MEDS: CLOPIDOGREL 75 MG TAB PO SCH (08:33)
[2020-01-25] MEDS: ASPIRIN 81 MG PO SCH (08:33)
[2020-01-25] MEDS: LOSARTAN 50 MG TAB PO SCH (08:33)
[2020-01-25 08:48] VITALS: TEMP 98.3
[2020-01-25] MEDS: FLUTICASONE 50MCG/SPRAY NASAL 16GM EA NOSTRIL SCH (11:10)
--- NOTE | 2020-01-25 11:29 | PN ---
PROGRESS NOTE This patient was admitted with high-degree AV block. Underwent a pacemaker placement. The patient is doing well. He has ambulated in the hallway. His weakness in the left lower leg is improved. Blood pressure is 137/63 mmHg. First and second heart sounds are normal. Lungs are clinically clear to auscultation and percussion. Repeat CT scan does not show any evidence of a new infarct. Most likely, the patient may have an exacerbation of his weakness due to the hypotension. We will continue the current medications and patient can be discharged home. MMODL / IJN: [id number] /
[2020-01-25 12:14] VITALS: BP 121/73; PULSE 91
--- NOTE | 2020-01-27 20:44 | P.DS ---
Providers Date of admission: 01/23/20 12:44 Expected date of discharge: 01/25/20 Attending physician: Jeff Mobley Consults: 01/23/20 12:44 Consult Physician Stat Consulting Provider: Ashutosh [place] Consult Reason/Comments: Second-degree type II heart block Do you want consulting provider notified?: Already Contacted 01/23/20 12:45 Consult Physician Routine Consulting Provider: Noe Manzo Consult Reason/Comments: CVA Do you want consulting provider notified?: Yes Primary care physician: [facility] Course: Chief Complaint: Left-sided weakness History of presenting complaint: This is a pleasant 79-year-old patient of Dr. Alexsander Rees. Chronic stable medical conditions include diabetes, osteoarthritis of the lumbosacral spine, COPD, chronic tinnitus, asbestosis. Patient will yesterday sitting in the chair when he suddenly noticed that his left leg had become paralyzed also notices weakness in the left arm. No change in speech. Decided to come to the ER. He was noticed to be in threes to 1 heart block. permanent pacemaker placed. There is some improvement in his left arm and left leg. No change in speech headache or vision. No change in swallowing. Seen by neurology. Admitted with threes to 1 heart block resulting in a pacemaker. Also acute stroke affecting the left side of the body. Computed tomography scan of the brain that was repeated in 24 hours did not reveal a stroke. Suspected to be Lacunar. Today-care was discussed with the patient. Question were answered. home health care social worker to arrange for physical therapy. Cleared by cardiology and neurology. Patient be prescribed a cane Discussion and discharge planning more than 35 minutes Physical examination: VITAL SIGNS: 98.3, 91, 16, 121/73, 97% on room air GENERAL: BMI 30.6, sitting up comfortable EYES: Pupils equal. Conjunctiva normal. HEENT: External appearance of nose and ears normal, oral cavity grossly normal. Decreased hearing NECK: JVD not raised; masses not palpable. HEART: First and second heart sounds are normal; no edema. LUNGS: Respiratory rate normal; decreased breath sounds. CHEST wall: Pacemaker with a dressing ABDOMEN: Soft, nontender, liver spleen not palpable, no masses palpable. PSYCH: Alert and oriented x3; mood and affect normal. NEUROLOGICAL: [Cranial nerves grossly intact; no facial asymmetry, power in the left leg 3/5. Part of the left arm 4/5. INVESTIGATIONS, reviewed in the clinical context: LDL-101 Previous testing White count 7.7 hemoglobin 12.9 platelets 133 potassium 4.6 creatinine 0.93 Troponin I is less than 0.012, 0.096 TSH 2.2 EKG tracing personally reviewed by me-threes to 1 block Chest [id number]-ogozzxq cough, changes CT scan of brain-old infarct inferior right frontal lobe: Repeat computed tomography scan unchanged CT angiogram and neck-positive is stenosis 2-D echo-year 50-55%, moderate left ventricular hypertrophy Assessment: -Acute stroke in the right MCA territory suspect lacunar with left-sided weakness with some improvement -Symptomatic threes to 1 heart block-patient also permanent pacemaker -Hypertensive heart disease -Lumbosacral DJD -Diabetes mellitus type 2 on oral hypoglycemic -asbestosis -Chronic tinnitus Disposition: Home Patient Condition at Discharge: Stable Plan - Discharge Summary New Discharge Prescriptions: New Aspirin 81 mg PO DAILY chew Losartan [Cozaar] 50 mg PO DAILY #30 tab Atorvastatin [Lipitor] 40 mg PO HS #30 tab Clopidogrel [Plavix] 75 mg PO DAILY #21 tab Continue metFORMIN HCL [Glucophage] 1,000 mg PO BID Oxybutynin Chloride [Ditropan] 2.5 mg PO BID Fluticasone Nasal [place] [Flonase Nasal [place]] 2 spr EA NOSTRIL DAILY Discontinued Meloxicam 7.5 mg PO BID PRN PRN Reason: Pain Meclizine [Antivert] 12.5 mg PO BID Discharge Medication List metFORMIN HCL [Glucophage] 1,000 mg PO BID 11/21/17 [History] Fluticasone Nasal [place] [Flonase Nasal [place]] 2 spr EA NOSTRIL DAILY 01/23/20 [History] Oxybutynin Chloride [Ditropan] 2.5 mg PO BID 01/23/20 [History] Aspirin 81 mg PO DAILY chew 01/25/20 [Rx] Atorvastatin [Lipitor] 40 mg PO HS #30 tab 01/25/20 [Rx] Clopidogrel [Plavix] 75 mg PO DAILY #21 tab 01/25/20 [Rx] Losartan [Cozaar] 50 mg PO DAILY #30 tab 01/25/20 [Rx] Follow up Appointment(s)/Referral(s): Alexsander García MD [Primary Care Provider] - 3 Days (call sunday for appt) [facility], [NON-STAFF] - Timothy Garibay MD [STAFF PHYSICIAN] - 1 Week (call sunday for appt) Candie Galindo MD [STAFF PHYSICIAN] - 1 Week (call sunday for follow up and device check) Patient Instructions/Handouts: Pacemaker (DC) Discharge Disposition: HOME SELF-CARE
== END 2020-01-25 13:56 | disposition home or self-care (01) | DRG 242 ==
LOC: EC 10:35 → 3SCARD 12:44
PROVIDERS: ADMIT Hospitalist; ATTEND Hospitalist
PROC: 02HK3JZ Insertion of Pacemaker Lead into Right Ventricle, Percutaneous Approach (ICD-10-PCS; principal; 2020-01-23 17:05)
PROC: 02H63JZ Insertion of Pacemaker Lead into Right Atrium, Percutaneous Approach (ICD-10-PCS; principal; 2020-01-23 17:05)
PROC: B51N1ZA Fluoroscopy of Left Upper Extremity Veins using Low Osmolar Contrast, Guidance (ICD-10-PCS; principal; 2020-01-23 17:05)
PROC: 0JH606Z Insertion of Pacemaker, Dual Chamber into Chest Subcutaneous Tissue and Fascia, Open Approach (ICD-10-PCS; principal; 2020-01-23 17:05)
DX: I44.1 Atrioventricular block, second degree (principal); I63.81 Other cerebral infarction due to occlusion or stenosis of small artery; G81.94 Hemiplegia, unspecified affecting left nondominant side; I45.2 Bifascicular block; I11.9 Hypertensive heart disease without heart failure; R00.1 Bradycardia, unspecified; R40.2362 Coma scale, best motor response, obeys commands, at arrival to emergency department; R40.2142 Coma scale, eyes open, spontaneous, at arrival to emergency department; R40.2252 Coma scale, best verbal response, oriented, at arrival to emergency department; I35.0 Nonrheumatic aortic (valve) stenosis; E11.9 Type 2 diabetes mellitus without complications; M47.817 Spondylosis without myelopathy or radiculopathy, lumbosacral region; G89.29 Other chronic pain; J44.9 Chronic obstructive pulmonary disease, unspecified; E78.5 Hyperlipidemia, unspecified; M19.90 Unspecified osteoarthritis, unspecified site; H93.19 Tinnitus, unspecified ear; E66.9 Obesity, unspecified; Z68.28 Body mass index [BMI] 28.0-28.9, adult; H26.9 Unspecified cataract; Z79.84 Long term (current) use of oral hypoglycemic drugs; Z79.899 Other long term (current) drug therapy; Z77.090 Contact with and (suspected) exposure to asbestos; Z71.3 Dietary counseling and surveillance; Z87.442 Personal history of urinary calculi; Z87.440 Personal history of urinary (tract) infections; Z90.49 Acquired absence of other specified parts of digestive tract; Z96.653 Presence of artificial knee joint, bilateral; Z96.5 Presence of tooth-root and mandibular implants; Z98.42 Cataract extraction status, left eye; Z96.1 Presence of intraocular lens; Z98.890 Other specified postprocedural states; Z87.891 Personal history of nicotine dependence; Z86.73 Personal history of transient ischemic attack (TIA), and cerebral infarction without residual deficits; W19.XXXA Unspecified fall, initial encounter; Z82.49 Family history of ischemic heart disease and other diseases of the circulatory system; Z80.9 Family history of malignant neoplasm, unspecified
CPT/HCPCS: 33208; 36415; 70450; 70496; 70498; 71045; 71046; 80053; 80061; 83036; 83605; 83735; 84443; 84484; 85025; 85610; 85730; 87040; 93005; 93306; 99291

== ENCOUNTER 2021-01-29 12:50 | Inpatient (IN) | payer MEDICARE ==
[2021-01-29 14:28] LABS: Basophils % (A) 0 %; Eosinophils % (A) 0 %; HCT 37.9 % (39.0-53.0); HGB 13.3 gm/dL (13.0-17.5); Lymphocytes # (A) 1.3 k/uL (1.0-4.8); Lymphocytes % (A) 17 %; MCV 94.1 fL (80.0-100.0); Mean Platelet Volume 10.3; Monocytes % (A) 13 %; Neutrophils % (A) 67 %; Platelet Count 110 k/uL (150-450); RBC 4.02 m/uL (4.30-5.90); RDW 11.6 % (11.5-15.5); WBC 7.5 k/uL (3.8-10.6)
--- NOTE | 2021-01-29 14:33 | XR ---
EXAMINATION TYPE: XR chest 2V DATE OF EXAM: 01/29/2021 COMPARISON: 01/24/2020. HISTORY: Weakness. TECHNIQUE: Frontal and lateral views of the chest are obtained. FINDINGS: There is no focal air space opacity, pleural effusion, or pneumothorax seen. The cardiac silhouette size is within normal limits. The osseous structures are intact. Stable left pacemaker. IMPRESSION: No acute cardiopulmonary process.
--- NOTE | 2021-01-29 14:35 | XR ---
RESULT: HISTORY: pain TECHNIQUE: AP view pelvis COMPARISON: None. FINDINGS: There is no acute fracture or dislocation. There are mild degenerative changes of the bilateral hips. The sacroiliac joints are patent. IMPRESSION: No acute osseous abnormality.
[2021-01-29 14:39] LABS: Albumin 4.6 g/dL (3.5-5.0); Calcium 9.4 mg/dL (8.4-10.2); Magnesium 1.7 mg/dL (1.6-2.3); Potassium 4.3 mmol/L (3.5-5.1); Total Bilirubin 0.6 mg/dL (0.2-1.3); Total Protein 7.7 g/dL (6.3-8.2)
[2021-01-29 14:44] LABS: Partial Thromboplastin Time 23.8 sec (22.0-30.0); Prothrombin Time 10.3 sec (9.0-12.0)
[2021-01-29] MEDS ORDERED: SODIUM CHLORIDE 0.9% 1,000 ML IV ONE (14:56)
--- NOTE | 2021-01-29 14:57 | ED ---
Weakness HPI - General Chief complaint: Weakness Stated complaint: Weakness/Falls Source: patient, EMS Mode of arrival: EMS Limitations: no limitations - History of Present Illness Initial comments: 80-year-old male with past medical history of COPD, heart block with pacemaker who presents emergency room with reported weakness since Sunday. Patient has had to call EMS twice for a lift assist. Reports to increasing weakness in his lower extremities. 2 days ago the patient slipped out of his chair and was unable to get up off the floor. He lives home alone. Normally ambulates unassisted, drives and takes care of himself. Patient admits to increased urinary frequency and urgency. Denies dysuria. Denies any chest pain or shortness of breath. Denies any unilateral. Patient suffered from a stroke one year ago and had left-sided weakness which completely resolved. Denies any abdominal pain. Admits to chronic back pain. Admits to chronic ataxia. No headaches or visual changes. No recent head trauma. No neck pain. Denies any speech difficulties. EMS was called to the house where there was a strong smell of urine as if the patient was having incontinence. No other alleviating, precipitating or modifying factors - Related Data Home Medications Medication Instructions Recorded Confirmed metFORMIN HCL [Glucophage] 1,000 mg PO BID 11/21/17 01/29/21 Fluticasone Nasal [place] [Flonase 2 spr EA NOSTRIL DAILY 01/23/20 01/29/21 Nasal [place]] Oxybutynin Chloride [Ditropan] 2.5 mg PO BID 01/23/20 01/29/21 HYDROcodone/APAP 7.5-325MG [[place] 1 tab PO Q6H PRN 01/29/21 01/29/21 7.5-325] Meloxicam [Mobic] 7.5 mg PO BID PRN 01/29/21 01/29/21 Metoprolol Tartrate [Lopressor] 25 mg PO BID 01/29/21 01/29/21 Previous Rx's Medication Instructions Recorded Aspirin 81 mg PO DAILY chew 01/25/20 Atorvastatin [Lipitor] 40 mg PO HS #30 tab 01/25/20 Losartan [Cozaar] 50 mg PO DAILY #30 tab 01/25/20 Allergies Allergy/AdvReac Type Severity Reaction Status Date / Time No Known Allergies Allergy Verified 01/29/21 14:51 Review of Systems ROS Statement: Those systems with pertinent positive or pertinent negative responses have been documented in the HPI. ROS Other: All systems not noted in ROS Statement are negative. Past Medical History Past Medical History: Diabetes Mellitus, Hypertension, Osteoarthritis (OA), Respiratory Disorder Additional Past Medical History / Comment(s): ASBESTOSIS/"POSS COPD", CHRONIC TINNITIS, KIDNEY STONES , Type 2 DM, DDD, CHRONIC LOWER BACK PAIN.UTI, RT EYE CATARACT History of Any Multi-Drug Resistant Organisms: None Reported Past Surgical History: Cholecystectomy, Joint Replacement, Orthopedic Surgery Additional Past Surgical History / Comment(s): PINEDA KNEE REPLACMENTS,PINEDA ROT CUFF REPAIR, LEFT CATARACT REMOVED-HAS LENS IMPLANT, ESWL left ureteral calculus 11/2016, X1 DENTAL IMPLANT, [employer] PACEMAKER 01/23/20 Past Anesthesia/Blood Transfusion Reactions: Previous Problems w/ Anesthesia Additional Past Anesthesia/Blood Transfusion Reaction / Comment(s): SAT UP "DURING" TOTAL RT KNEE SURGERY Past Psychological History: No Psychological Hx Reported Smoking Status: Former smoker Past Alcohol Use History: Occasional Past Drug Use History: None Reported - Past Family History Mother Family Medical History: Congestive Heart Failure (CHF) Father Family Medical History: Cancer Brother(s) Family Medical History: Cancer Sister(s) Family Medical History: Cancer General Exam Limitations: no limitations General appearance: alert, in no apparent distress Head exam: Present: atraumatic, normocephalic, normal inspection Eye exam: Present: normal appearance, PERRL, EOMI. Absent: scleral icterus, conjunctival injection, periorbital swelling ENT exam: Present: normal exam, mucous membranes moist Neck exam: Present: normal inspection. Absent: tenderness, meningismus, lymphadenopathy Respiratory exam: Present: normal lung sounds bilaterally. Absent: respiratory distress, wheezes, rales, rhonchi, stridor Cardiovascular Exam: Present: regular rate, normal rhythm, normal heart sounds. Absent: systolic murmur, diastolic murmur, rubs, gallop, clicks GI/Abdominal exam: Present: soft, normal bowel sounds. Absent: distended, tenderness, guarding, rebound, rigid Extremities exam: Present: normal capillary refill, other (1/5 strength lle. 3/5 strength rle. bilateral studio grip strength equal 5/5. ). Absent: tenderness, pedal edema, joint swelling, calf tenderness Back exam: Present: normal inspection Neurological exam: Present: alert, oriented X3, CN II-XII intact Psychiatric exam: Present: normal affect, normal mood Skin exam: Present: warm, dry, intact, normal color. Absent: rash Course Vital Signs 01/29/21 01/29/21 01/29/21 12:55 13:30 14:00 Temperature 98.6 F Pulse Rate 110 H 91 Pulse Rate [ 115 H Audit Intern ] Respiratory 20 20 Rate Blood Pressure 129/73 118/80 O2 Sat by Pulse 96 Oximetry 01/29/21 01/29/21 01/29/21 15:00 16:00 17:00 Temperature 99.9 F H Pulse Rate 99 99 85 Pulse Rate [ Audit Intern ] Respiratory 21 19 20 Rate Blood Pressure 119/56 122/53 114/61 O2 Sat by Pulse 96 95 94 L Oximetry 01/29/21 18:00 Temperature Pulse Rate 101 H Pulse Rate [ Audit Intern ] Respiratory 20 Rate Blood Pressure 119/56 O2 Sat by Pulse 95 Oximetry EKG Findings - EKG Comments: EKG Findings:: EKG demonstrates a ventricularly paced rhythm. Rate of 111. QRS 176. QTC of 625. Negative for sgarbossa criteria. Medical Decision Making - Medical Decision Making Upon arrival patient was placed into room 24. A thorough history and physical exam is performed. Patient does appear to have greater weakness in his left lower extremity than his right. Patient states he feels equally weak. Admits the stroke did affect his left side however he regained all strength. IV is established. Patient was given a liter of normal saline and a gram of Tylenol. Laboratory studies were conducted. D-dimer 1.06. Covid is detected. Chest x- ray demonstrates no acute process. Pelvic x-ray demonstrates no acute osseous abnormality. CT of the patient's brain demonstrates an old right frontal lobe infarct with no acute findings. Results are discussed the patient. As he has sustained multiple falls with what I believe is new onset left-sided weakness I recommended admission to the hospital. Patient did agree to this. I spoke with Dr. Gorman who accepted admission. I'll consult neurology. Patient remained in stable condition awaiting a bed - Lab Data Result diagrams: 01/31/21 07:12 01/31/21 07:12 Lab Results 03/27/21 03/27/21 03/27/21 Range/Units 14:01 14:01 14:01 WBC 7.5 (3.8-10.6) k/uL RBC 4.02 L (4.30-5.90) m/uL Hgb 13.3 (13.0-17.5) gm/dL Hct 37.9 L (39.0-53.0) % MCV 94.1 (80.0-100.0) fL MCH 33.0 (25.0-35.0) pg MCHC 35.0 (31.0-37.0) g/dL RDW 11.6 (11.5-15.5) % Plt Count 110 L (150-450) k/uL MPV 10.3 Neutrophils % 67 % Lymphocytes % 17 % Monocytes % 13 % Eosinophils % 0 % Basophils % 0 % Neutrophils # 5.0 (1.3-7.7) k/uL Lymphocytes # 1.3 (1.0-4.8) k/uL Monocytes # 1.0 (0-1.0) k/uL Eosinophils # 0.0 (0-0.7) k/uL Basophils # 0.0 (0-0.2) k/uL PT 10.3 (9.0-12.0) sec INR 1.0 (<1.2) APTT 23.8 (22.0-30.0) sec D-Dimer 1.06 H (<0.60) mg/L FEU Sodium 137 (137-145) mmol/L Potassium 4.3 (3.5-5.1) mmol/L Chloride 102 (98-107) mmol/L Carbon Dioxide 23 (22-30) mmol/L Anion Gap 12 mmol/L BUN 18 (9-20) mg/dL Creatinine 1.17 (0.66-1.25) mg/dL Est GFR (CKD-EPI)AfAm 68 (>60 ml/min/1.73 sqM) Est GFR (CKD-EPI)NonAf 59 (>60 ml/min/1.73 sqM) Glucose 161 H (74-99) mg/dL Plasma Lactic Acid Eric (0.7-2.0) mmol/L Calcium 9.4 (8.4-10.2) mg/dL Magnesium 1.7 (1.6-2.3) mg/dL Total Bilirubin 0.6 (0.2-1.3) mg/dL AST 39 (17-59) U/L ALT 27 (4-49) U/L Alkaline Phosphatase 69 (38-126) U/L Creatine Kinase 392 H (55-170) U/L Troponin I (0.000-0.034) ng/mL NT-Pro-B Natriuret Pep pg/mL Total Protein 7.7 (6.3-8.2) g/dL Albumin 4.6 (3.5-5.0) g/dL Urine Color Urine Appearance (Clear) Urine pH (5.0-8.0) Ur Specific [place] (1.001-1.035) Urine Protein (Negative) Urine Glucose (UA) (Negative) Urine Ketones (Negative) Urine Blood (Negative) Urine Nitrite (Negative) Urine Bilirubin (Negative) Urine Urobilinogen (<2.0) mg/dL Ur Leukocyte Esterase (Negative) Urine RBC (0-5) /hpf Urine WBC (0-5) /hpf Coronavirus (PCR) (Not Detectd) 01/29/21 01/29/21 01/29/21 Range/Units 14:01 14:01 14:01 WBC (3.8-10.6) k/uL RBC (4.30-5.90) m/uL Hgb (13.0-17.5) gm/dL Hct (39.0-53.0) % MCV (80.0-100.0) fL MCH (25.0-35.0) pg MCHC (31.0-37.0) g/dL RDW (11.5-15.5) % Plt Count (150-450) k/uL MPV Neutrophils % % Lymphocytes % % Monocytes % % Eosinophils % % Basophils % % Neutrophils # (1.3-7.7) k/uL Lymphocytes # (1.0-4.8) k/uL Monocytes # (0-1.0) k/uL Eosinophils # (0-0.7) k/uL Basophils # (0-0.2) k/uL PT (9.0-12.0) sec INR (<1.2) APTT (22.0-30.0) sec D-Dimer (<0.60) mg/L FEU Sodium (137-145) mmol/L Potassium (3.5-5.1) mmol/L Chloride (98-107) mmol/L Carbon Dioxide (22-30) mmol/L Anion Gap mmol/L BUN (9-20) mg/dL Creatinine (0.66-1.25) mg/dL Est GFR (CKD-EPI)AfAm (>60 ml/min/1.73 sqM) Est GFR (CKD-EPI)NonAf (>60 ml/min/1.73 sqM) Glucose (74-99) mg/dL Plasma Lactic Acid Eric 1.3 (0.7-2.0) mmol/L Calcium (8.4-10.2) mg/dL Magnesium (1.6-2.3) mg/dL Total Bilirubin (0.2-1.3) mg/dL AST (17-59) U/L ALT (4-49) U/L Alkaline Phosphatase (38-126) U/L Creatine Kinase (55-170) U/L Troponin I <0.012 (0.000-0.034) ng/mL NT-Pro-B Natriuret Pep 438 pg/mL Total Protein (6.3-8.2) g/dL Albumin (3.5-5.0) g/dL Urine Color Urine Appearance (Clear) Urine pH (5.0-8.0) Ur Specific [place] (1.001-1.035) Urine Protein (Negative) Urine Glucose (UA) (Negative) Urine Ketones (Negative) Urine Blood (Negative) Urine Nitrite (Negative) Urine Bilirubin (Negative) Urine Urobilinogen (<2.0) mg/dL Ur Leukocyte Esterase (Negative) Urine RBC (0-5) /hpf Urine WBC (0-5) /hpf Coronavirus (PCR) (Not Detectd) 01/29/21 01/29/21 Range/Units 14:01 16:02 WBC (3.8-10.6) k/uL RBC (4.30-5.90) m/uL Hgb (13.0-17.5) gm/dL Hct (39.0-53.0) % MCV (80.0-100.0) fL MCH (25.0-35.0) pg MCHC (31.0-37.0) g/dL RDW (11.5-15.5) % Plt Count (150-450) k/uL MPV Neutrophils % % Lymphocytes % % Monocytes % % Eosinophils % % Basophils % % Neutrophils # (1.3-7.7) k/uL Lymphocytes # (1.0-4.8) k/uL Monocytes # (0-1.0) k/uL Eosinophils # (0-0.7) k/uL Basophils # (0-0.2) k/uL PT (9.0-12.0) sec INR (<1.2) APTT (22.0-30.0) sec D-Dimer (<0.60) mg/L FEU Sodium (137-145) mmol/L Potassium (3.5-5.1) mmol/L Chloride (98-107) mmol/L Carbon Dioxide (22-30) mmol/L Anion Gap mmol/L BUN (9-20) mg/dL Creatinine (0.66-1.25) mg/dL Est GFR (CKD-EPI)AfAm (>60 ml/min/1.73 sqM) Est GFR (CKD-EPI)NonAf (>60 ml/min/1.73 sqM) Glucose (74-99) mg/dL Plasma Lactic Acid Eric (0.7-2.0) mmol/L Calcium (8.4-10.2) mg/dL Magnesium (1.6-2.3) mg/dL Total Bilirubin (0.2-1.3) mg/dL AST (17-59) U/L ALT (4-49) U/L Alkaline Phosphatase (38-126) U/L Creatine Kinase (55-170) U/L Troponin I (0.000-0.034) ng/mL NT-Pro-B Natriuret Pep pg/mL Total Protein (6.3-8.2) g/dL Albumin (3.5-5.0) g/dL Urine Color Yellow Urine Appearance Cloudy (Clear) Urine pH 5.5 (5.0-8.0) Ur Specific [place] 1.023 (1.001-1.035) Urine Protein 1+ H (Negative) Urine Glucose (UA) Negative (Negative) Urine Ketones 1+ H (Negative) Urine Blood Negative (Negative) Urine Nitrite Negative (Negative) Urine Bilirubin Negative (Negative) Urine Urobilinogen 3.0 (<2.0) mg/dL Ur Leukocyte Esterase Negative (Negative) Urine RBC <1 (0-5) /hpf Urine WBC <1 (0-5) /hpf Coronavirus (PCR) Detected A (Not Detectd) Disposition Clinical Impression: Weakness, Falls, COVID-19, Tachycardia, Left leg weakness, CVA (cerebral vascular accident) Disposition: ADMITTED IP TO THIS [facility] Condition: Stable Is patient prescribed a controlled substance at d/c from ED?: No Decision to Admit Reason: Admit from EC Decision Date: 01/29/21 Decision Time: 16:21
--- NOTE | 2021-01-29 15:02 | CT ---
EXAM: CT brain wo con CLINICAL HISTORY: Weakness. COMPARISON: 01/24/2020. TECHNIQUE: Contiguous axial noncontrast images of the brain were obtained. Coronal and sagittal refor mats were generated and reviewed. Automated dose control was used for this exam. FINDINGS: There is no evidence for intracranial hemorrhage, mass effect or midline shift. There is old right fr ontal lobe infarct. The white matter is grossly preserved. Ventricular size and configuration is within normal limits for degree of parenchymal volume. The paranasal sinuses are clear. The mastoid air cells are clear. No evidence for calvarial fracture. IMPRESSION: No acute intracranial abnormality. Old right frontal lobe infarct.
[2021-01-29 15:04] LABS: D-Dimer 1.06 mg/L FEU (<0.60)
[2021-01-29 16:17] LABS: Appearance,Urine Cloudy (Clear); Bilirubin,Urine Negative (Negative); Blood,Urine Negative (Negative); Color,Urine Yellow; Glucose,Urine (UA) Negative (Negative); Ketones,Urine 1+ (Negative); Leukocyte Esterase,Urine Negative (Negative); Nitrite,Urine Negative (Negative); PH, Urine 5.5 (5.0-8.0); Protein,Urine 1+ (Negative); RBC,Urine <1 /hpf (0-5); Specific Gravity,Urine 1.023 (1.001-1.035); WBC,Urine <1 /hpf (0-5)
[2021-01-29] MEDS ORDERED: ACETAMINOPHEN TAB 500 MG TAB PO STA (16:20)
[2021-01-29] MEDS ORDERED: NALOXONE 0.4 MG/ML 1 ML VIAL IV PRN (16:21)
[2021-01-29] MEDS: SODIUM CHLORIDE 0.9% 1,000 ML IV SCH (18:04)
[2021-01-29 20:46] LABS: Glucose,Whole Blood 131 mg/dL (75-99)
[2021-01-29] MEDS: OXYBUTYNIN CHLORIDE 5 MG TAB PO SCH (20:52)
[2021-01-29] MEDS: METOPROLOL TARTRATE 25 MG TAB PO SCH (20:52)
[2021-01-29] MEDS: ASCORBIC ACID 500 MG TAB PO SCH (20:53)
[2021-01-29] MEDS: ASPIRIN 81 MG PO SCH (20:53)
[2021-01-29] MEDS: CHOLECALCIFEROL 25 MCG (1000 IU) TABLET PO SCH (20:53)
[2021-01-29] MEDS: ATORVASTATIN 40 MG TAB PO SCH (20:53)
[2021-01-29] MEDS: ZINC SULFATE 220 MG CAP PO SCH (20:54)
[2021-01-29] MEDS: INSULIN ASPART (NovoLOG) 100 UNIT/ML VIAL SQ SCH (21:03)
[2021-01-30] MEDS: INSULIN ASPART (NovoLOG) 100 UNIT/ML VIAL SQ SCH ×4 (07:07→21:21)
[2021-01-30] MEDS: SODIUM CHLORIDE 0.9% 1,000 ML IV SCH ×2 (07:07→21:25)
[2021-01-30 07:33] LABS: Glucose,Whole Blood 124 mg/dL (75-99)
[2021-01-30] MEDS: ENOXAPARIN 40 MG/0.4 ML SYRINGE SQ SCH (08:31)
[2021-01-30] MEDS: CHOLECALCIFEROL 25 MCG (1000 IU) TABLET PO SCH (08:32)
[2021-01-30] MEDS: METOPROLOL TARTRATE 25 MG TAB PO SCH ×2 (08:32→21:19)
[2021-01-30] MEDS: ZINC SULFATE 220 MG CAP PO SCH (08:32)
[2021-01-30] MEDS: OXYBUTYNIN CHLORIDE 5 MG TAB PO SCH ×2 (08:32→21:19)
[2021-01-30] MEDS: ASCORBIC ACID 500 MG TAB PO SCH ×2 (08:32→21:21)
[2021-01-30] MEDS: ASPIRIN 81 MG PO SCH (08:33)
[2021-01-30] MEDS: FLUTICASONE 50MCG/SPRAY NASAL 16GM EA NOSTRIL SCH (08:33)
[2021-01-30] MEDS: LOSARTAN 50 MG TAB PO SCH (08:33)
[2021-01-30 09:44] LABS: Basophils % (A) 0 %; Eosinophils # (A) 0.1 k/uL (0-0.7); Eosinophils % (A) 1 %; HGB 12.8 gm/dL (13.0-17.5); Lymphocytes # (A) 1.2 k/uL (1.0-4.8); Lymphocytes % (A) 20 %; MCH 32.5 pg (25.0-35.0); MCHC 34.6 g/dL (31.0-37.0); MCV 93.7 fL (80.0-100.0); Mean Platelet Volume 10.2; Monocytes # (A) 0.6 k/uL (0-1.0); Monocytes % (A) 10 %; Neutrophils % (A) 68 %; Platelet Count 101 k/uL (150-450); RBC 3.95 m/uL (4.30-5.90); RDW 11.7 % (11.5-15.5); WBC 5.9 k/uL (3.8-10.6)
[2021-01-30 09:55] LABS: African American GFR (CKD) >90 (>60 ml/min/1.73 sqM); Anion Gap 10 mmol/L; Blood Urea Nitrogen 15 mg/dL (9-20); C Reactive Protein 62.6 mg/L (<10.0); Calcium 8.4 mg/dL (8.4-10.2); Carbon Dioxide 21 mmol/L (22-30); Chloride 105 mmol/L (98-107); Glucose 147 mg/dL (74-99); LDH 531 U/L (313-618); Non-African American GFR(CKD) 82 (>60 ml/min/1.73 sqM); Potassium 4.2 mmol/L (3.5-5.1); Sodium 136 mmol/L (137-145)
--- NOTE | 2021-01-30 11:42 | P.HPIM ---
History of Present Illness H&P Date: 01/29/21 Chief Complaint: Generalized weakness Patient is a 80 old male with a known history of hypertension, diabetes type 2, COPD, history of asbestosis, chronic low back pain, history of pacemaker placement in January 2020, previous history of smoking and history of CVA/TIA presents to ER with complaints of generalized weakness for the past 2-3 days. Patient has been having increasing weakness and unable to take any oral intake for the past 2 days. Patient had to call EMS twice for a lift assist. Patient slipped he states and was unable to get up on the floor. Patient lives by himself. Patient also complaining of increased urinary frequency and urgency. Denied any dysuria. Denied any chest pain or shortness of breath. Patient says that she did have low-grade fever at home. Patient states that he did have a stroke one year ago and had left-sided weakness which was completely resolved. No recent trauma. Denied any speech difficulty. Patient has generalized we akness mainly. Patient was complaining of right leg weakness more than left when he came to ER. EMS was called and found strong smell of urine. Denied any recent illnesses or sick contacts. Patient goes to a nearby restaurant for dinner. He lives by himself. Chest x-ray showed no acute cardiopulmonary process X-ray of the pelvis showed no acute osseous abnormality. CT head showed no acute intracranial abnormality. Old right frontal lobe infarct. EKG showed left ventricle hypertrophy and undetermined rhythm. Laboratory data showed WBC count 0.5 hemoglobin 13.3 platelets 110, d-dimer 1.06 Plan so don't is on potassium 4.3 chloride 102 BUN 18 and creatinine 1.17 and glucose 161 Urinalysis is negative for infection Covid 19 positive. Review of Systems Constitutional: Patient subjective fevers and chills. Generalized weakness and malaise and body aches.. Abdomen: Patient denied nausea vomiting and diarrhea and abdominal pain. Cardiovascular: Patient denies any chest pain or short of breath no palpitations. Respiratory: patient denied any cough is from production. No shortness of breath Neurologic: Patient denied any numbness or tingling headache. Musculoskeletal: Patient denies any complaints of joint swelling or deformity. Generalized weakness. Skin: Negative Psychiatric: Negative Endocrine: No heat or cold intolerance. No recent weight gain. Genitourinary: No dysuria or hematuria. All other 14 point ROS negative except the above Past Medical History Past Medical History: Diabetes Mellitus, Hypertension, Osteoarthritis (OA), Respiratory Disorder Additional Past Medical History / Comment(s): ASBESTOSIS/"POSS COPD", CHRONIC TINNITIS, KIDNEY STONES , Type 2 DM, DDD, CHRONIC LOWER BACK PAIN.UTI, RT EYE CATARACT History of Any Multi-Drug Resistant Organisms: None Reported Past Surgical History: Cholecystectomy, Joint Replacement, Orthopedic Surgery Additional Past Surgical History / Comment(s): PINEDA KNEE REPLACMENTS,PINEDA ROT CUFF REPAIR, LEFT CATARACT REMOVED-HAS LENS IMPLANT, ESWL left ureteral calculus 11/2016, X1 DENTAL IMPLANT, [employer] PACEMAKER 01/23/20 Past Anesthesia/Blood Transfusion Reactions: Previous Problems w/ Anesthesia Additional Past Anesthesia/Blood Transfusion Reaction / Comment(s): SAT UP "DUR ING" TOTAL RT KNEE SURGERY Past Psychological History: No Psychological Hx Reported Smoking Status: Former smoker Past Alcohol Use History: Occasional Past Drug Use History: None Reported - Past Family History Mother Family Medical History: Congestive Heart Failure (CHF) Father Family Medical History: Cancer Brother(s) Family Medical History: Cancer Sister(s) Family Medical History: Cancer Medications and Allergies Home Medications Medication Instructions Recorded Confirmed Type metFORMIN HCL [Glucophage] 1,000 mg PO BID 11/21/17 01/29/21 History Fluticasone Nasal [place] [Flonase 2 spr EA NOSTRIL DAILY 01/23/20 01/29/21 History Nasal [place]] Oxybutynin Chloride [Ditropan] 2.5 mg PO BID 01/23/20 01/29/21 History Aspirin 81 mg PO DAILY chew 01/25/20 01/29/21 Rx Atorvastatin [Lipitor] 40 mg PO HS #30 tab 01/25/20 01/29/21 Rx Losartan [Cozaar] 50 mg PO DAILY #30 tab 01/25/20 01/29/21 Rx HYDROcodone/APAP 7.5-325MG [[place] 1 tab PO Q6H PRN 01/29/21 01/29/21 History 7.5-325] Meloxicam [Mobic] 7.5 mg PO BID PRN 01/29/21 01/29/21 History Metoprolol Tartrate [Lopressor] 25 mg PO BID 01/29/21 01/29/21 History Allergies Allergy/AdvReac Type Severity Reaction Status Date / Time No Known Allergies Allergy Verified 01/29/21 14:51 Physical Exam Vitals: Vital Signs Temp Pulse Pulse Resp BP 01/29/21 13:30 115 H 01/29/21 12:55 98.6 F 110 H 20 129/73 Intake and Output 01/29/21 01/29/21 01/29/21 06:59 14:59 22:59 Other: Weight 99.79 kg PHYSICAL EXAMINATION: Patient is lying in the bed comfortably, no acute distress, awake alert and oriented. Weak and lethargic.. HEENT: Normocephalic. Neck is supple. Pupils reactive. Nostrils clear. Oral cavity is moist. Ears reveal no drainage. Neck reveals no JVD, carotid bruits, or thyromegaly. CHEST EXAMINATION: Trachea is central. Symmetrical expansion. Scattered crackles and coarse sounds. No wheezing.. CARDIAC: Normal S1, S2 with no gallops. No murmurs ABDOMEN: Soft. Bowel sounds normal. No organomegaly. No abdominal bruits. Extremities: reveal no edema. No clubbing or cyanosis Neurologically awake, alert, oriented x3 with well-coordinated movements. No gross focal deficits noted Skin: No rash or skin lesions. Psychiatric: Coperative. Nonsuicidal Musculoskeletal: No joint swelling or deformity. Normal range of motion. Results CBC & Chem 7: 01/30/21 08:46 01/30/21 08:46 Labs: Abnormal Lab Results - Last 24 Hours (Table) 01/29/21 01/29/21 01/29/21 Range/Units 14:01 14:01 14:01 RBC 4.02 L (4.30-5.90) m/uL Hct 37.9 L (39.0-53.0) % Plt Count 110 L (150-450) k/uL D-Dimer 1.06 H (<0.60) mg/L FEU Glucose 161 H (74-99) mg/dL Creatine Kinase 392 H (55-170) U/L Urine Protein (Negative) Urine Ketones (Negative) Coronavirus (PCR) (Not Detectd) 01/29/21 01/29/21 Range/Units 14:01 16:02 RBC (4.30-5.90) m/uL Hct (39.0-53.0) % Plt Count (150-450) k/uL D-Dimer (<0.60) mg/L FEU Glucose (74-99) mg/dL Creatine Kinase (55-170) U/L Urine Protein 1+ H (Negative) Urine Ketones 1+ H (Negative) Coronavirus (PCR) Detected A (Not Detectd) Thrombosis Risk Factor Assmnt - DVT/VTE Prophylaxis DVT/VTE Prophylaxis: Pharmacologic Prophylaxis ordered Assessment and Plan Assessment: Acute covid 19 infection. Subjective fevers and generalized weakness 2 days. Generalized weakness. Right lower activity greater than left when he came to ER. Possible acute CVA suspected. CT head showed no acute CVA. Previous history of CVA with right frontal infarct. No residual weakness. History of pacemaker placement Dehydration and volume depletion Hypertension Diabetes type 2 [id number] Asbestosis and possible underlying COPD Degenerative disease Chronic low back pain Patient history of smoking History of nephrolithiasis DVT prophylaxis with Lovenox Plan: Patient will be continued on IV hydration. CT head showed no acute CVA. Foll ow-up information markers. Oxygen SUPPLEMENTATION as needed. Neurology and ID was consulted. Continue with Lovenox subcu and multivitamins and supportive care. PT OT will be consulted. Patient is currently on room air at 94%. Further recommendations based on the clinical course. Metformin is on hold and continue with insulin sliding scale. Breathing treatments as needed and continue with pain management. Further recommendations based on the clinical course. Prognosis is guarded with multiple medical problems and comorbid conditions. Time with Patient: Greater than 30
[2021-01-30 11:53] LABS: Glucose,Whole Blood 126 mg/dL (75-99)
[2021-01-30 14:11] LABS: Hemoglobin A1C 6.3 % (4.0-6.0)
[2021-01-30] MEDS: CLOPIDOGREL 75 MG TAB PO SCH (14:28)
--- NOTE | 2021-01-30 16:52 | P.CNNES ---
History of Present Illness Consult date: 01/30/21 Requesting physician: Vickie Cobos Reason for Consult: Acute left leg weakness, history of CVA History of Present Illness: This is a tele-neurology consultation performed on this patient who is a 80-year-old male came to the hospital by ambulance yesterday at 12:50 PM for evaluation of leg weakness. Patient states that his symptoms started on , 01/27/2021 when he woke up in the morning, and try to get out of bed, and his legs gave out and he fell. He was unable to get up. He has no strength. He couldn't walk. He somehow mated to the phone, and called the ambulance. He asked them to help him get up and sat on the chair. He declined to go to the hospital. Patient states that he stayed in the chair. In the evening at 5:30 PM he tried to get up and again went down on the floor and this time he was not able to get to the phone. He laid there until the next 4 PM and his sister came in and found him on the floor. She called the EMS. Per EMS flow sheet, family has mentioned that they came over to visit and found patient laying on the floor. Patient had mentioned that he slid out of his chair and was unable to get back up. Per family, patient has needed to call EMS several times over the last weekend for lift assist due to increasing weakness. Patient has not been eating or drinking over the last 2 days due to decreased mobility. Patient denied any injuries from any of the falls. Patient denied any head, neck or back pain. No headaches. No chest pain or shortness of breath. P qiana's vital signs at the scene was 130/77, pulse rate 105 and regular, respiration 20 and saturation 95% on room air and EKG shows sinus rhythm. Vital signs on arrival blood pressure 129/73, pulse rate 110, temperature 98.6 patient's T-max is 99.9. Blood pressure has been stable. CT head showed no acute intracranial abnormality. 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 On my review, there is no change from the prior. EKG shows undetermined rhythm. Left axis deviation. Left ventricular hypertrophy with QRS widening and repolarization abnormality. Probable lateral infarct, age undetermined chest x- ray showed no acute cardiopulmonary process. Pelvic x-ray showed no acute osseous abnormality. Patient has been seen by myself on 01/23/2024 possible CVA with left arm and left leg weakness. Patient also was found to have second-degree AV block for which he underwent pacemaker placement. CT head had shown old encephalomalacia in the right frontal lobe. CTA of head and neck was negative. No stenosis or aneurysm. Patient's risk factor was diabetes, hyperlipidemia and moderate aortic stenosis. Patient was placed on dual antiplatelet medications for 3 weeks and then was recommended to switch to Plavix 75 mg. High-dose statins was recommended. Patient currently on aspirin 81 mg. Also on metformin, losartan 50 mg, Lipitor 40 mg, metoprolol 25 mg twice a day. Patient states that he lives by himself, walks by himself, does not use any assistive device. He has a aide, that comes every 2 weeks to clean the house. He denies any tobacco use, hypertension. He has diabetes, states is controlled. Patient states that he has received first dose of Moderna Covid vaccine couple weeks ago. He is due for the second dose next week. Review of Systems Patient denies any slurred speech, facial droop, or problem with the vision or headache. Denies any problem with bowel or bladder control. Patient states that he has arthritis, had history of bilateral knee replacement. Denies any abdominal pain, nausea vomiting diarrhea. Denies any double vision, loss of vision. No chest pain or shortness of breath. All other review of systems unremarkable. Past Medical History Past Medical History: Diabetes Mellitus, Hypertension, Osteoarthritis (OA), Respiratory Disorder Additional Past Medical History / Comment(s): ASBESTOSIS/"POSS COPD", CHRONIC TINNITIS, KIDNEY STONES , Type 2 DM, DDD, CHRONIC LOWER BACK PAIN.UTI, RT EYE CATARACT History of Any Multi-Drug Resistant Organisms: None Reported Past Surgical History: Cholecystectomy, Joint Replacement, Orthopedic Surgery Additional Past Surgical History / Comment(s): PINEDA KNEE REPLACMENTS,PINEDA ROT CUFF REPAIR, LEFT CATARACT REMOVED-HAS LENS IMPLANT, ESWL left ureteral calculus 11/2016, X1 DENTAL IMPLANT, [employer] PACEMAKER 01/23/20 Past Anesthesia/Blood Transfusion Reactions: Previous Problems w/ Anesthesia Additional Past Anesthesia/Blood Transfusion Reaction / Comment(s): SAT UP "DURING" TOTAL RT KNEE SURGERY Type of Cardiac Device: Permanent Pacemaker Device Placement Date:: 01/2020 Past Psychological History: No Psychological Hx Reported Smoking Status: Former smoker Past Alcohol Use History: Occasional Past Drug Use History: None Reported - Past Family History Mother Family Medical History: Congestive Heart Failure (CHF) Father Family Medical History: Cancer Brother(s) Family Medical History: Cancer Sister(s) Family Medical History: Cancer Medications and Allergies Home Medications Medication Instructions Recorded Confirmed Type metFORMIN HCL [Glucophage] 1,000 mg PO BID 11/21/17 01/29/21 History Fluticasone Nasal [place] [Flonase 2 spr EA NOSTRIL DAILY 01/23/20 01/29/21 History Nasal [place]] Oxybutynin Chloride [Ditropan] 2.5 mg PO BID 01/23/20 01/29/21 History Aspirin 81 mg PO DAILY chew 01/25/20 01/29/21 Rx Atorvastatin [Lipitor] 40 mg PO HS #30 tab 01/25/20 01/29/21 Rx Losartan [Cozaar] 50 mg PO DAILY #30 tab 01/25/20 01/29/21 Rx HYDROcodone/APAP 7.5-325MG [[place] 1 tab PO Q6H PRN 01/29/21 01/29/21 History 7.5-325] Meloxicam [Mobic] 7.5 mg PO BID PRN 01/29/21 01/29/21 History Metoprolol Tartrate [Lopressor] 25 mg PO BID 01/29/21 01/29/21 History Allergies Allergy/AdvReac Type Severity Reaction Status Date / Time No Known Allergies Allergy Verified 01/29/21 14:51 Physical Examination - Vital Signs Vital Signs: Vital Signs Temp Pulse Pulse Pulse Resp BP BP 01/30/21 08:30 97.5 F L 103 H 16 129/66 01/30/21 08:00 103 H 16 01/30/21 04:00 82 17 142/84 01/30/21 01:00 80 17 01/30/21 00:00 80 19 118/67 01/29/21 20:08 98.2 F 94 19 98/61 01/29/21 20:00 94 19 01/29/21 19:03 98.4 F 106 H 18 122/65 01/29/21 18:45 99.0 F 102 H 20 132/65 01/29/21 18:00 101 H 20 119/56 01/29/21 17:00 85 20 114/61 01/29/21 16:00 99 19 122/53 01/29/21 15:00 99.9 F H 99 21 119/56 01/29/21 14:00 91 20 118/80 01/29/21 13:30 115 H 01/29/21 12:55 98.6 F 110 H 20 129/73 Pulse Ox 01/30/21 08:30 93 L 01/30/21 08:00 01/30/21 04:00 94 L 01/30/21 01:00 01/30/21 00:00 96 01/29/21 20:08 95 01/29/21 20:00 01/29/21 19:03 95 01/29/21 18:45 94 L 01/29/21 18:00 95 01/29/21 17:00 94 L 01/29/21 16:00 95 01/29/21 15:00 96 01/29/21 14:00 96 01/29/21 13:30 01/29/21 12:55 Intake and Output 01/29/21 01/30/21 01/30/21 22:59 06:59 14:59 Intake Total 550 240 Output Total 550 2 Balance 0 238 Intake: Intake, IV Titration 450 Amount Sodium Chloride 0.9% 1, 450 000 ml @ 75 mls/hr IV . [id number] [facility] Rx#:[id number] Oral 100 240 Output: Urine 550 1 Stool 1 Other: Voiding Method Urinal Urinal Toilet Urinal # Voids 0 Weight 99.79 kg 97.5 kg On examination patient is an elderly male, very pleasant, in no acute distress. Patient is alert and awake fully oriented. He knows it is January 2021 and that he is in [facility]. Speech and language functions are normal. No aphasia or dysarthria. On cranial examination pupils are round and reactive to light and accommodation. Extraocular muscles are intact with no nystagmus. Face is symmetric, tongue protrudes to the midline. Palatal elevation and sensation, hearing and shoulder shrug normal, facial sensation normal. On muscle strength testing there is no pronator drift and the strength is normal in the arms and legs distally and proximally except left hip flexion which is 4. Reflexes are 2 in the upper limbs, 2 at the knees, 1 at ankles and plantars are downgoing bilaterally. Sensory to touch is equal with no neglect. No ataxia for [id number] or [id number] testing, tone and bulk of muscles normal. Patient was able to get up from the bed, was able to walk without any difficulty. He states that all his symptoms have resolved. Results - Laboratory Findings CBC and BMP: 01/30/21 08:46 01/30/21 08:46 Abnormal Lab Findings: Abnormal Labs 01/29/21 01/29/21 01/29/21 14:01 14:01 14:01 RBC 4.02 L Hgb Hct 37.9 L Plt Count 110 L D-Dimer 1.06 H Sodium Carbon Dioxide Glucose 161 H POC Glucose (mg/dL) Creatine Kinase 392 H C-Reactive Protein Urine Protein Urine Ketones Coronavirus (PCR) 01/29/21 01/29/21 01/29/21 14:01 16:02 20:40 RBC Hgb Hct Plt Count D-Dimer Sodium Carbon Dioxide Glucose POC Glucose (mg/dL) 131 H Creatine Kinase C-Reactive Protein Urine Protein 1+ H Urine Ketones 1+ H Coronavirus (PCR) Detected A 01/30/21 01/30/21 01/30/21 07:06 08:46 08:46 RBC 3.95 L Hgb 12.8 L Hct 37.0 L Plt Count 101 L D-Dimer Sodium 136 L Carbon Dioxide 21 L Glucose 147 H POC Glucose (mg/dL) 124 H Creatine Kinase C-Reactive Protein 62.6 H Urine Protein Urine Ketones Coronavirus (PCR) Assessment and Plan Assessment: * 80-year-old male, with episode of generalized weakness involving bilateral upper and lower limbs equally, with inability to get up. Exact cause of weakness is uncertain, as symptoms are bilateral, without involvement of the cranial region. No slurring of speech. Generalized weakness related to acute Covid infection is most likely. TIA also in the differential, given his multiple vascular risk factors and previous history of stroke and TIA. At present all his symptoms have resolved and he is back to baseline. * History of heart block with pacemaker placement in January 2020 * Diabetes * Hyperlipidemia * Moderate aortic stenosis. Plan: * Patient will be placed on dual antiplatelet medication aspirin 81 mg and Plavix 75 mg for 21 days. Thereafter he can stop aspirin and continue Plavix 75 mg indefinitely. * Patient cannot have MRI because of pacemaker. * Patient had a CTA of the head and neck performed a year ago on 01/23/2020, which revealed no hemodynamically significant stenosis, aneurysmal outpouchings or occlusion of the major arterial vasculature of the head or neck. No indication to repeat it. * 2-D echo also performed on 01/23/2020, revealed moderate concentric LVH, EF is 50-55%, left atrial size is normal. Aneurysmal interatrial septum. * Hemoglobin A1c 6.3 * Lipid panel with cholesterol 185, LDL 101, HDL 61 and triglycerides 115. Con tinue Lipitor 40 mg. * We will check B12, folate. * Neurologically clear, if remains stable overnight. * Treatment of Covid-19 as per IM/ID.
[2021-01-30 16:53] LABS: Glucose,Whole Blood 135 mg/dL (75-99)
[2021-01-30] MEDS: HYDROcodone/APAP 7.5-325MG 1 EACH TAB PO PRN (17:37)
[2021-01-30] MEDS ORDERED: BAMLANIVIMAB (EUA) 700 MG in SODIUM CHLORIDE 0.9% 50 ML IVPB ONE (18:30)
--- NOTE | 2021-01-30 20:18 | CONS ---
CONSULTATION DATE OF SERVICE: 01/30/2021 REASON FOR CONSULTATION: COVID-19 pneumonia and management for monoclonal antibodies. HISTORY OF PRESENT ILLNESS: The patient is a 80-year-old male with a past medical history significant for COPD, heart block, with a pacemaker, presenting to the ER yesterday afternoon for evaluation of increasing weakness. Apparently, the patient did have multiple falls over the last week and EMS has been called to his house multiple times to get him up. Two days ago, the patient slipped out of his chair and was unable to get off the floor. The patient denies high-grade fever or any chills. Has been complaining of mostly weakness in the leg. No focal weakness. The patient denies any headache. No chest pain. No shortness of breath. Minimal cough. No nausea, no vomiting. No abdominal pain. Did have some diarrhea. With these symptoms, the patient has been evaluated by the ER physician. On arrival to the ER, the patient has been afebrile to low-grade fever of 99.9. The patient is currently slightly tachycardic, not hypoxic. Sats of 96% on room air. The patient did have a normal white count with no lymphopenia. D. dimer initially was slightly high. Repeat 0.56. Patient's CRP 62.6. Creatinine was 0.87. Liver enzymes are normal. LDH is normal. Urine was negative. Covid test came back positive. The patient did have a chest x-ray that was reported negative for any acute pulmonary process. The patient has been admitted to hospital, currently being worked up for CVA with a positive Covid test. Culture has been negative. The patient may benefit from monoclonal antibodies infusion because of his multiple comorbidities and to prevent any worsening. REVIEW OF SYSTEMS: Positive points have been mentioned in HPI. Rest of systems are negative. PAST MEDICAL HISTORY: Diabetes mellitus, hypertension, osteoarthritis, COPD. PAST SURGICAL HISTORY: Cholecystectomy, bilateral knee replacement, bilateral rotator cuff repair, lithotripsy for the left ureteral calculus. SOCIAL HISTORY: Remote history of smoking. Occasionally drinks. No drug use. FAMILY HISTORY: Mother history of congestive heart failure. Father history of cancer. ALLERGIES: No known drug allergies. MEDICATIONS: The patient is currently on [place], vitamin C, aspirin, Lipitor, vitamin D3, Plavix, Lovenox, NovoLog, Cozaar, Lopressor, Narcan, zinc. PHYSICAL EXAMINATION: Blood pressure 150/82 with a pulse of 106, temperature 98.6. He is 96% on room air. General description: The patient is an elderly male lying in bed in no distress. No tachypnea or accessory muscles of respiration use. HEENT: Examination shows no pallor or scleral icterus. Oral mucous membranes dry. NECK: Trachea central. No thyromegaly. LUNGS: Unlabored breathing, decreased intensity of breath sounds. No wheeze or crackles. HEART S1, S2. Regular rate and rhythm. ABDOMEN: Soft, no tenderness. No guarding. No rigidity. EXTREMITIES: No edema of the feet. SKIN examination: No rash or mass palpable. NEUROLOGICAL: Patient is awake, alert, oriented times three. Mood and affect normal. LABS: Hemoglobin is 10.8, white count 5.9. D-dimer is 0.56. LDH is normal. CRP elevated 2.6. Urine was negative . [place] PCR positive. Chest x-ray was negative. DIAGNOSTIC IMPRESSION AND PLAN: Patient admitted to the hospital with generalized weakness, multiple falls and is currently being worked up for possible CVA in this patient also tested positive for Covid. However, the patient on admission to the hospital seems to be more for his cerebrovascular accident/transient ischemic attack workup and Covid is not reason of admission as the patient is currently not running any fever. He is not hypoxic. No need for supplemental oxygen. A chest x-ray was negative for any acute pulmonary process or pneumonia. The patient had normal LDH and D-dimer. PLAN: 1. Patient is an ideal candidate for monoclonal antibodies with symptom onset of 01/27/2021 and currently not admitted to the hospital for a Covid related diagnosis. This has been discussed in detail with the pharmacy and will be the patient will started on today. 2. The patient has been started on Lovenox, zinc and ascorbic acid and vitamin D3 to continue. 3. No need for steroids. 4. Droplet isolation and respiratory support. 5. We will monitor clinical course closely and adjust medication further if needed. Thank you for this consultation. Will follow this patient along with you. MMODL / IJN: [id number] /
[2021-01-30 21:00] LABS: Glucose,Whole Blood 150 mg/dL (75-99)
[2021-01-30] MEDS: ATORVASTATIN 40 MG TAB PO SCH (21:19)
[2021-01-30 22:55] LABS: Folate, Serum >24.0 ng/mL
--- NOTE | 2021-01-31 00:36 | P.PN ---
Subjective Progress Note Date: 01/30/21 Principal diagnosis: Acute COVID-19 pneumonia Generalized weakness. Patient is a 80 old male with a known history of hypertension, diabetes type 2, COPD, history of asbestosis, chronic low back pain, history of pacemaker placement in January 2020, previous history of smoking and history of CVA/TIA presents to ER with complaints of generalized weakness for the past 2-3 days. Patient has been having increasing weakness and unable to take any oral intake for the past 2 days. Patient had to call EMS twice for a lift assist. Patient slipped he states and was unable to get up on the floor. Patient lives by himself. Patient also complaining of increased urinary frequency and urgency. Denied any dysuria. Denied any chest pain or shortness of breath. Patient says that she did have low-grade fever at home. Patient states that he did have a stroke one year ago and had left-sided weakness which was completely resolved. No recent trauma. Denied any speech difficulty. Patient has generalized weakness mainly. Patient was complaining of right leg weakness more than left when he came to ER. EMS was called and found strong smell of urine. Denied any recent illnesses or sick contacts. Patient goes to a nearby restaurant for dinner. He lives by himself. Chest x-ray showed no acute cardiopulmonary process X-ray of the pelvis showed no acute osseous abnormality. CT head showed no acute intracranial abnormality. Old right frontal lobe infar ct. EKG showed left ventricle hypertrophy and undetermined rhythm. Laboratory data showed WBC count 0.5 hemoglobin 13.3 platelets 110, d-dimer 1.06 Plan so don't is on potassium 4.3 chloride 102 BUN 18 and creatinine 1.17 and glucose 161 Urinalysis is negative for infection Covid 19 positive. 01/30/21 Patient is currently sitting at the side of bed. Awake alert oriented x3. Patient still having generalized weakness but improved slightly compared to yesterday. No complaints of chest pain or shortness of the. No fever no chills. Generalized weakness is likely elated to Covid infection. Possible TIA is being considered. Patient was seen by neurology Continue with dual antiplatelet therapy for 21 days followed by Plavix 100 mg indefinitely. Recent CTA head and neck and 2D echocardiogram report reviewed. Otherwise patient is saturating at 96% on room air. Tachycardic. Patient is afebrile. Received dose of BAM. ID is on board. Continue with Lovenox subcu and multivitamins. PT will be consulted. Active Medications Generic Name Dose Route Start Last Admin Trade Name [place]one PRN Reason Stop Dose Admin Hydrocodone Bitart/Acetaminophen 1 each 01/29/21 18:06 01/30/21 17:37 Hydrocodone/Apap 7.5-325mg 1 Each Tab PO 1 each Q6H PRN Administration Pain Ascorbic Acid 500 mg 01/29/21 21:00 01/30/21 21:21 Ascorbic Acid 500 Mg Tab PO 500 mg BID MYCHAL Administration Aspirin 81 mg 01/29/21 18:15 01/30/21 08:33 Aspirin 81 Mg PO 81 mg DAILY MYCHAL Administration Atorvastatin Calcium 40 mg 01/29/21 21:00 01/30/21 21:19 Atorvastatin 40 Mg Tab PO 40 mg HS MYCHAL Administration Cholecalciferol 25 mcg 01/29/21 18:15 01/30/21 08:32 Cholecalciferol 25 Mcg (1000 Iu) Tablet PO 25 mcg DAILY MYCHAL Administration Clopidogrel Bisulfate 75 mg 01/30/21 13:00 01/30/21 14:28 Clopidogrel 75 Mg Tab PO 75 mg DAILY MYCHAL Administration Enoxaparin Sodium 40 mg 01/30/21 09:00 01/30/21 08:31 Enoxaparin 40 Mg/0.4 Ml Syringe SQ 40 mg DAILY MYCHAL Administration Fluticasone Propionate 2 spray 01/30/21 09:00 01/30/21 08:33 Fluticasone 50mcg/[place] Nasal 16gm EA NOSTRIL 2 spray DAILY MYCHAL Administration Sodium Chloride 1,000 mls @ 75 mls/hr 01/29/21 16:30 01/30/21 21:25 Saline 0.9% IV Not Given .[id number] MY[facility] Insulin Aspart 0 unit 01/29/21 21:00 01/30/21 21:21 Insulin Aspart (Novolog) 100 Unit/Ml Vial SQ 1 unit ACHS MYCHAL Administration Protocol Losartan Potassium 50 mg 01/30/21 09:00 01/30/21 08:33 Losartan 50 Mg Tab PO 50 mg DAILY MYCHAL Administration Metoprolol Tartrate 25 mg 01/29/21 21:00 01/30/21 21:19 Metoprolol Tartrate 25 Mg Tab PO 25 mg BID MYCHAL Administration Naloxone HCl 0.2 mg 01/29/21 16:21 Naloxone 0.4 Mg/Ml 1 Ml Vial IV Q2M PRN Opioid Reversal Oxybutynin Chloride 2.5 mg 01/29/21 21:00 01/30/21 21:19 Oxybutynin Chloride 5 Mg Tab PO 2.5 mg BID MYCHAL Administration Zinc Sulfate 220 mg 01/29/21 18:15 01/30/21 08:32 Zinc Sulfate 220 Mg Cap PO 220 mg DAILY MYCHAL Administration Objective - Vital Signs Vital signs: Vital Signs Temp 97.9 F 01/30/21 11:45 Pulse 96 01/30/21 13:50 Resp 18 01/30/21 13:50 BP 121/64 01/30/21 11:45 Pulse Ox 94 L 01/30/21 11:45 Intake & Output 01/29/21 01/30/21 01/30/21 18:59 06:59 18:59 Intake Total 550 360 Output Total 550 2 Balance 0 358 Weight 99.79 kg 97.5 kg Intake: Intake, IV Titration 450 Amount Sodium Chloride 0.9% 1, 450 000 ml @ 75 mls/hr IV . [id number] [facility] Rx#:[id number] Oral 100 360 Output: Urine 550 1 Stool 1 Other: Voiding Method Urinal Toilet Urinal # Voids 0 - Exam PHYSICAL EXAMINATION: Patient is lying in the bed comfortably, no acute distress, awake alert and oriented. Weak and lethargic.. HEENT: Normocephalic. Neck is supple. Pupils reactive. Nostrils clear. Oral cavity is moist. Ears reveal no drainage. Neck reveals no JVD, carotid bruits, or thyromegaly. CHEST EXAMINATION: Trachea is central. Symmetrical expansion. Scattered cr ackles and coarse sounds. No wheezing.. CARDIAC: Normal S1, S2 with no gallops. No murmurs ABDOMEN: Soft. Bowel sounds normal. No organomegaly. No abdominal bruits. Extremities: reveal no edema. No clubbing or cyanosis Neurologically awake, alert, oriented x3 with well-coordinated movements. No gross focal deficits noted Skin: No rash or skin lesions. Psychiatric: Coperative. Nonsuicidal Musculoskeletal: No joint swelling or deformity. Normal range of motion. - Labs CBC & Chem 7: 01/30/21 08:46 01/30/21 08:46 Labs: Abnormal Lab Results - Last 24 Hours (Table) 01/29/21 01/30/21 01/30/21 Range/Units 20:40 07:06 08:46 RBC 3.95 L (4.30-5.90) m/uL Hgb 12.8 L (13.0-17.5) gm/dL Hct 37.0 L (39.0-53.0) % Plt Count 101 L (150-450) k/uL Sodium (137-145) mmol/L Carbon Dioxide (22-30) mmol/L Glucose (74-99) mg/dL POC Glucose (mg/dL) 131 H 124 H (75-99) mg/dL Hemoglobin A1c (4.0-6.0) % C-Reactive Protein (<10.0) mg/L 01/30/21 01/30/21 01/30/21 Range/Units 08:46 08:46 11:52 RBC (4.30-5.90) m/uL Hgb (13.0-17.5) gm/dL Hct (39.0-53.0) % Plt Count (150-450) k/uL Sodium 136 L (137-145) mmol/L Carbon Dioxide 21 L (22-30) mmol/L Glucose 147 H (74-99) mg/dL POC Glucose (mg/dL) 126 H (75-99) mg/dL Hemoglobin A1c 6.3 H (4.0-6.0) % C-Reactive Protein 62.6 H (<10.0) mg/L Assessment and Plan Assessment: Acute covid 19 infection. Subjective fevers and generalized weakness 2 days. Generalized weakness. Right lower activity greater than left when he came to ER. Possible acute CVA/TIA suspected. CT head showed no acute CVA.Patient was seen by neurology. Previous history of CVA with right frontal infarct. No residual weakness. History of pacemaker placement Dehydration and volume depletion Hypertension Diabetes type 2 [id number] Asbestosis and possible underlying COPD Degenerative disease Chronic low back pain Patient history of smoking History of nephrolithiasis DVT prophylaxis with Lovenox Plan: Patient will be continued on IV hydration. CT head showed no acute CVA. Will be continued on dual antiplatelet therapy for 3 weeks. Follow-up information markers. Oxygen SUPPLEMENTATION as needed. Patient is currently on room air. Received a dose of BAM Neurology and ID on board. Continue with Lovenox subcu and multivitamins and supportive care. PT OT will be consulted. Patient is currently on room air at 94%. Further recommendations based on the clinical course. Metformin is on hold and continue with insulin sliding scale. Breathing treatments as needed and continue with pain management. Time with Patient: Greater than 30
[2021-01-31] MEDS: HYDROcodone/APAP 7.5-325MG 1 EACH TAB PO PRN ×2 (03:54→21:29)
[2021-01-31 06:22] LABS: Glucose,Whole Blood 154 mg/dL (75-99)
[2021-01-31] MEDS: INSULIN ASPART (NovoLOG) 100 UNIT/ML VIAL SQ SCH ×4 (06:44→21:03)
[2021-01-31 08:02] LABS: Basophils % (A) 0 %; Eosinophils % (A) 0 %; HCT 35.6 % (39.0-53.0); HGB 12.2 gm/dL (13.0-17.5); Lymphocytes # (A) 1.1 k/uL (1.0-4.8); Lymphocytes % (A) 19 %; MCH 32.2 pg (25.0-35.0); MCHC 34.2 g/dL (31.0-37.0); MCV 94.1 fL (80.0-100.0); Mean Platelet Volume 9.8; Monocytes # (A) 0.5 k/uL (0-1.0); Monocytes % (A) 9 %; Neutrophils # (A) 4.1 k/uL (1.3-7.7); Neutrophils % (A) 71 %; Platelet Count 102 k/uL (150-450); RBC 3.78 m/uL (4.30-5.90); RDW 11.7 % (11.5-15.5); WBC 5.8 k/uL (3.8-10.6)
[2021-01-31 08:09] LABS: African American GFR (CKD) >90 (>60 ml/min/1.73 sqM); Anion Gap 10 mmol/L; Blood Urea Nitrogen 13 mg/dL (9-20); C Reactive Protein 54.7 mg/L (<10.0); Calcium 8.3 mg/dL (8.4-10.2); Carbon Dioxide 19 mmol/L (22-30); Chloride 104 mmol/L (98-107); Glucose 153 mg/dL (74-99); Non-African American GFR(CKD) 79 (>60 ml/min/1.73 sqM); Potassium 4.2 mmol/L (3.5-5.1); Sodium 133 mmol/L (137-145)
[2021-01-31] MEDS: LOSARTAN 50 MG TAB PO SCH (09:57)
[2021-01-31] MEDS: CHOLECALCIFEROL 25 MCG (1000 IU) TABLET PO SCH (09:57)
[2021-01-31] MEDS: METOPROLOL TARTRATE 25 MG TAB PO SCH ×2 (09:57→21:03)
[2021-01-31] MEDS: ASPIRIN 81 MG PO SCH (09:57)
[2021-01-31] MEDS: OXYBUTYNIN CHLORIDE 5 MG TAB PO SCH ×2 (09:57→21:03)
[2021-01-31] MEDS: ZINC SULFATE 220 MG CAP PO SCH (09:58)
[2021-01-31] MEDS: CLOPIDOGREL 75 MG TAB PO SCH (09:58)
[2021-01-31] MEDS: ENOXAPARIN 40 MG/0.4 ML SYRINGE SQ SCH (09:58)
[2021-01-31] MEDS: FLUTICASONE 50MCG/SPRAY NASAL 16GM EA NOSTRIL SCH (09:58)
[2021-01-31] MEDS: SODIUM CHLORIDE 0.9% 1,000 ML IV SCH ×2 (10:05→21:03)
[2021-01-31] MEDS: ASCORBIC ACID 500 MG TAB PO SCH ×2 (10:05→21:03)
[2021-01-31 11:44] LABS: Glucose,Whole Blood 159 mg/dL (75-99)
--- NOTE | 2021-01-31 11:54 | P.PN ---
Subjective Patient is a 80 old male with a known history of hypertension, diabetes type 2, COPD, history of asbestosis, chronic low back pain, history of pacemaker placement in January 2020, previous history of smoking and history of CVA/TIA presents to ER with complaints of generalized weakness for the past 2-3 days. Patient has been having increasing weakness and unable to take any oral intake for the past 2 days. Patient had to call EMS twice for a lift assist. Patient slipped he states and was unable to get up on the floor. Patient lives by himse lf. Patient also complaining of increased urinary frequency and urgency. Denied any dysuria. Denied any chest pain or shortness of breath. Patient says that she did have low-grade fever at home. Patient states that he did have a stroke one year ago and had left-sided weakness which was completely resolved. No recent trauma. Denied any speech difficulty. Patient has generalized weakness mainly. Patient was complaining of right leg weakness more than left when he came to ER. EMS was called and found strong smell of urine. Denied any recent illnesses or sick contacts. Patient goes to a nearby restaurant for dinner. He lives by himself. Chest x-ray showed no acute cardiopulmonary process X-ray of the pelvis showed no acute osseous abnormality. CT head showed no acute intracranial abnormality. Old right frontal lobe infarct. EKG showed left ventricle hypertrophy and undetermined rhythm. Laboratory data showed WBC count 0.5 hemoglobin 13.3 platelets 110, d-dimer 1.06 Plan so don't is on potassium 4.3 chloride 102 BUN 18 and creatinine 1.17 and glucose 161 Urinalysis is negative for infection Covid 19 positive. 01/30/21 Patient is currently sitting at the side of bed. Awake alert oriented x3. Patient still having generalized weakness but improved slightly compared to yes terday. No complaints of chest pain or shortness of the. No fever no chills. Generalized weakness is likely elated to Covid infection. Possible TIA is being considered. Patient was seen by neurology Continue with dual antiplatelet therapy for 21 days followed by Plavix 100 mg indefinitely. Recent CTA head and neck and 2D echocardiogram report reviewed. Otherwise patient is saturating at 96% on room air. Tachycardic. Patient is afebrile. Received dose of BAM. ID is on board. Continue with Lovenox subcu and multivitamins. PT will be consulted. 01/31/2021 Patient mainly appears to have a generalized weakness doesn't appear to have any focal weakness. All the workup for stroke with was negative neurology evaluated recommending dual antiplatelet therapy for 3 weeks followed by Plavix. Patient is quite weak may need subacute rehabilitation. Patient is positive for Covid patient also did receive first dose of vaccine about 4 weeks ago. Patient is not requiring oxygen patient only symptom is generalized weakness patient has a Casarez catheter for urinary retention will probably DC the Casarez catheter tomorrow and do a voiding trial tomorrow, meantime physical therapy and occupa tion that we will evaluated the patient. Constitutional: Denied any fatigue denied any fever. Cardio vascular: denied any chest pain, palpitations Gastrointestinal denied any nausea vomiting Pulmonary: Denied any shortness of breath cough Neurologic denied any new focal deficits All inpatient medications were reviewed and appropriate changes in these medications as dictated in the interval history and assessment and plan. Objective - Vital Signs Vital signs: Vital Signs Temp 97.6 F 01/31/21 08:45 Pulse 50 L 01/31/21 08:46 Resp 16 01/31/21 08:45 BP 130/60 01/31/21 08:45 Pulse Ox 93 L 01/31/21 08:45 Intake & Output 01/30/21 01/31/21 01/31/21 18:59 06:59 18:59 Intake Total 360 750 Output Total 2 101 400 Balance 358 649 -400 Weight 97.5 kg Intake: Intake, IV Titration 750 Amount Sodium Chloride 0.9% 1, 750 000 ml @ 75 mls/hr IV . [id number] [facility] Rx#:[id number] Oral 360 Output: Urine 1 100 400 Uretheral (Casarez) 400 Stool 1 1 Other: Voiding Method Toilet Toilet Urinal Urinal # Voids 1 1 # Bowel Movements 1 0 - Exam PHYSICAL EXAMINATION: GENERAL: The patient is alert and oriented x3, not in any acute distress. Well developed, well nourished. HEENT: Pupils are round and equally reacting to light. EOMI. No scleral icterus. No conjunctival pallor. Normocephalic, atraumatic. No pharyngeal erythema. No thyromegaly. CARDIOVASCULAR: S1 and S2 present. No murmurs, rubs, or gallops. PULMONARY: Chest is clear to auscultation, no wheezing or crackles. ABDOMEN: Soft, nontender, nondistended, normoactive bowel sounds. No palpable organomegaly. MUSCULOSKELETAL: No joint swelling or deformity. EXTREMITIES: No cyanosis, clubbing, or pedal edema. NEUROLOGICAL: Gross neurological examination did not reveal any focal deficits. Significant generalized weakness SKIN: No rashes. - Labs CBC & Chem 7: 01/31/21 07:12 01/31/21 07:12 Labs: Abnormal Lab Results - Last 24 Hours (Table) 01/30/21 01/30/21 01/30/21 Range/Units 08:46 11:52 16:38 RBC (4.30-5.90) m/uL Hgb (13.0-17.5) gm/dL Hct (39.0-53.0) % Plt Count (150-450) k/uL Sodium (137-145) mmol/L Carbon Dioxide (22-30) mmol/L Glucose (74-99) mg/dL POC Glucose (mg/dL) 126 H 135 H (75-99) mg/dL Hemoglobin A1c 6.3 H (4.0-6.0) % Calcium (8.4-10.2) mg/dL C-Reactive Protein (<10.0) mg/L 01/30/21 01/31/21 01/31/21 Range/Units 20:55 06:20 07:12 RBC 3.78 L (4.30-5.90) m/uL Hgb 12.2 L (13.0-17.5) gm/dL Hct 35.6 L (39.0-53.0) % Plt Count 102 L (150-450) k/uL Sodium (137-145) mmol/L Carbon Dioxide (22-30) mmol/L Glucose (74-99) mg/dL POC Glucose (mg/dL) 150 H 154 H (75-99) mg/dL Hemoglobin A1c (4.0-6.0) % Calcium (8.4-10.2) mg/dL C-Reactive Protein (<10.0) mg/L 01/31/21 01/31/21 Range/Units 07:12 11:41 RBC (4.30-5.90) m/uL Hgb (13.0-17.5) gm/dL Hct (39.0-53.0) % Plt Count (150-450) k/uL Sodium 133 L (137-145) mmol/L Carbon Dioxide 19 L (22-30) mmol/L Glucose 153 H (74-99) mg/dL POC Glucose (mg/dL) 159 H (75-99) mg/dL Hemoglobin A1c (4.0-6.0) % Calcium 8.3 L (8.4-10.2) mg/dL C-Reactive Protein 54.7 H (<10.0) mg/L Assessment and Plan Plan: Assessment and Plan Plan: Acute covid 19 infection. Subjective fevers and generalized weakness 2 days. No shortness of breath, continue with multivitamin supplementation patient received BAM infusion Generalized weakness. Does not appear to any focal weakness was evaluated by neurology and Depression therapy for 3 weeks followed by Plavix as mentioned above Possible acute CVA/TIA suspected. CT head showed no acute CVA.Patient was seen by neurology. Previous history of CVA with right frontal infarct. No residual weakness. History of pacemaker placement Dehydration and volume depletion can't continue with IV fluids Hypertension Diabetes type 2 [id number] Asbestosis and possible underlying COPD Degenerative disease Chronic low back pain Patient history of smoking History of nephrolithiasis DVT prophylaxis with Lovenox
[2021-01-31] MEDS: TAMSULOSIN 0.4 MG CAP.ER.24H PO SCH (11:56)
[2021-01-31 16:37] LABS: Glucose,Whole Blood 149 mg/dL (75-99)
[2021-01-31 20:31] LABS: Glucose,Whole Blood 148 mg/dL (75-99)
[2021-01-31] MEDS: ATORVASTATIN 40 MG TAB PO SCH (21:03)
[2021-01-31] MEDS: guaiFENesin-DM 100-10MG/5ML 10 ML CUP PO PRN (21:29)
--- NOTE | 2021-01-31 23:16 | PN ---
PROGRESS NOTE DATE OF SERVICE: 01/11/2021 REASON FOR FOLLOWUP: COVID-19 pneumonia. INTERVAL HISTORY: The patient is currently afebrile. The patient is breathing comfortably, currently on room air. The patient denies having any chest pain or shortness of breath. Occasional cough. No abdominal pain or diarrhea. PHYSICAL EXAMINATION: Blood pressure 121/56, pulse of 90, temperature 98.4. He is 95% on room air. General description is an elderly male lying in bed in no distress. RESPIRATORY SYSTEM: Unlabored breathing. Clear to auscultation. HEART: S1, S2. Regular rate and rhythm. ABDOMEN: Soft. No tenderness. LABS: Hemoglobin is 12.9, white count 5.9. BUN of 13, creatinine 0.92. DIAGNOSTIC IMPRESSION AND PLAN: Patient with acute COVID-19 infection in this patient admitted to hospital with cerebrovascular accident/transient ischemic attack. Patient has received monoclonal antibodies. Monitor clinical course closely. Continue with supportive care. MMODL / IJN: [id number] /
[2021-02-01] MEDS: guaiFENesin-DM 100-10MG/5ML 10 ML CUP PO PRN ×2 (03:24→09:53)
[2021-02-01 03:45] VITALS: RESP 18
[2021-02-01 06:21] LABS: Glucose,Whole Blood 150 mg/dL (75-99)
[2021-02-01] MEDS: INSULIN ASPART (NovoLOG) 100 UNIT/ML VIAL SQ SCH ×2 (06:29→12:29)
[2021-02-01] MEDS: CHOLECALCIFEROL 25 MCG (1000 IU) TABLET PO SCH (09:10)
[2021-02-01] MEDS: ENOXAPARIN 40 MG/0.4 ML SYRINGE SQ SCH (09:10)
[2021-02-01] MEDS: METOPROLOL TARTRATE 25 MG TAB PO SCH (09:10)
[2021-02-01] MEDS: ASPIRIN 81 MG PO SCH (09:10)
[2021-02-01] MEDS: OXYBUTYNIN CHLORIDE 5 MG TAB PO SCH (09:10)
[2021-02-01] MEDS: LOSARTAN 50 MG TAB PO SCH (09:10)
[2021-02-01] MEDS: ZINC SULFATE 220 MG CAP PO SCH (09:11)
[2021-02-01] MEDS: CLOPIDOGREL 75 MG TAB PO SCH (09:11)
[2021-02-01] MEDS: TAMSULOSIN 0.4 MG CAP.ER.24H PO SCH (09:11)
[2021-02-01] MEDS: ASCORBIC ACID 500 MG TAB PO SCH (09:11)
[2021-02-01] MEDS: FLUTICASONE 50MCG/SPRAY NASAL 16GM EA NOSTRIL SCH (09:14)
[2021-02-01 12:13] LABS: Glucose,Whole Blood 160 mg/dL (75-99)
--- NOTE | 2021-02-01 14:54 | P.DS ---
Providers Date of admission: 01/29/21 16:21 Attending physician: Jana Gorman Consults: 01/29/21 16:22 Consult Physician Urgent Consulting Provider: Noe Manzo Consult Reason/Comments: acute left leg weakness, hx cva Do you want consulting provider notified?: Yes 01/29/21 18:10 Consult Physician Routine Consulting Provider: Kat Terry Consult Reason/Comments: covid 19, criteria for BAM Do you want consulting provider notified?: Yes Primary care physician: [facility] Course: Patient is a 80 old male with a known history of hypertension, diabetes type 2, COPD, history of asbestosis, chronic low back pain, history of pacemaker placement in January 2020, previous history of smoking and history of CVA/TIA presents to ER with complaints of generalized weakness for the past 2-3 days. Patient has been having increasing weakness and unable to take any oral intake for the past 2 days. Patient had to call EMS twice for a lift assist. Patient slipped he states and was unable to get up on the floor. Patient lives by himself. Patient also complaining of increased urinary frequency and urgency. Denied any dysuria. Denied any chest pain or shortness of breath. Patient says that she did have low-grade fever at home. Patient states that he did have a stroke one year ago and had left-sided weakness which was completely resolved. No recent trauma. Denied any speech difficulty. Patient has generalized weakness mainly. Patient was complaining of right leg weakness more than left when he came to ER. EMS was called and found strong smell of urine. Denied any recent illnesses or sick contacts. Patient goes to a nearby restaurant for dinner. He lives by himself. Chest x-ray showed no acute cardiopulmonary process X-ray of the pelvis showed no acute osseous abnormality. CT head showed no acute intracranial abnormality. Old right frontal lobe infarct. EKG showed left ventricle hypertrophy and undetermined rhythm. Laboratory data showed WBC count 0.5 hemoglobin 13.3 platelets 110, d-dimer 1.06 Plan so don't is on potassium 4.3 chloride 102 BUN 18 and creatinine 1.17 and glucose 161 Urinalysis is negative for infection Covid 19 positive. 01/30/21 Patient is currently sitting at the side of bed. Awake alert oriented x3. Patient still having generalized weakness but improved slightly compared to yesterday. No complaints of chest pain or shortness of the. No fever no chills. Generalized weakness is likely elated to Covid infection. Possible TIA is being considered. Patient was seen by neurology Continue with dual antiplatelet therapy for 21 days followed by Plavix 100 mg indefinitely. Recent CTA head and neck and 2D echocardiogram report reviewed. Otherwise patient is saturating at 96% on room air. Tachycardic. Patient is afebrile. Received dose of BAM. ID is on board. Continue with Lovenox subcu and multivitamins. PT will be consulted. 01/31/2021 Patient mainly appears to have a generalized weakness doesn't appear to have any focal weakness. All the workup for stroke with was negative neurology evaluated recommending dual antiplatelet therapy for 3 weeks followed by Plavix. Patient is quite weak may need subacute rehabilitation. Patient is positive for Covid patient also did receive first dose of vaccine about 4 weeks ago. Patient is not requiring oxygen patient only symptom is generalized weakness patient has a Casarez catheter for urinary retention will probably DC the Casarez catheter tomorrow and do a voiding trial tomorrow, meantime physical therapy and occupation that we will evaluated the patient. 02/01/2021 Patient is not requiring any oxygen today. Patient is clinically doing well patient is still bit hyponatremic at 133. Physical therapy occupational therapy valid the patient is recommended subacute rehabilitation although patient declined to go to subacute rehab patient will be discharged home. PHYSICAL EXAMINATION: GENERAL: The patient is alert and oriented x3, not in any acute distress. Well developed, well nourished. HEENT: Pupils are round and equally reacting to light. EOMI. No scleral icterus. No conjunctival pallor. Normocephalic, atraumatic. No pharyngeal erythema. No thyromegaly. CARDIOVASCULAR: S1 and S2 present. No murmurs, rubs, or gallops. PULMONARY: Chest is clear to auscultation, no wheezing or crackles. ABDOMEN: Soft, nontender, nondistended, normoactive bowel sounds. No palpable organomegaly. MUSCULOSKELETAL: No joint swelling or deformity. EXTREMITIES: No cyanosis, clubbing, or pedal edema. NEUROLOGICAL: Gross neurological examination did not reveal any focal deficits. Significant generalized weakness SKIN: No rashes. Assessment and Plan Plan: Acute covid 19 infection. Subjective fevers and generalized weakness 2 days. No shortness of breath, continue with multivitamin supplementation patient received BAM infusion, patient will be discharged today. Generalized weakness. Does not appear to any focal weakness was evaluated by neurology , does not appear to have any CVA although this was suspected and had workup for this Dual therapy for 3 weeks followed by Plavix as mentioned above CT head showed no acute CVA.Patient was seen by neurology. Previous history of CVA with right frontal infarct. No residual weakness. History of pacemaker placement Dehydration and volume depletion improved with IV fluids Hypertension Diabetes type 2 [id number] Asbestosis and possible underlying COPD Degenerative disease Chronic low back pain Patient history of smoking History of nephrolithiasis Patient Condition at Discharge: Stable Plan - Discharge Summary Discharge Rx Participant: Yes New Discharge Prescriptions: New Zinc Sulfate [Orazinc] 220 mg PO DAILY #30 cap Clopidogrel [Plavix] 75 mg PO DAILY #30 tab guaiFENesin-DM 100-10MG/5ML [Robitussin DM] 10 ml PO Q6H PRN #200 ml PRN Reason: Cough Ascorbic Acid [Vitamin C] 500 mg PO BID #30 tab Cholecalciferol [Vitamin D3 (25 Mcg = 1000 Iu)] 25 mcg PO DAILY #30 tablet Continue metFORMIN HCL [Glucophage] 1,000 mg PO BID Oxybutynin Chloride [Ditropan] 2.5 mg PO BID Fluticasone Nasal [place] [Flonase Nasal [place]] 2 spr EA NOSTRIL DAILY Losartan [Cozaar] 50 mg PO DAILY #30 tab Atorvastatin [Lipitor] 40 mg PO HS #30 tab HYDROcodone/APAP 7.5-325MG [Wever 7.5-325] 1 tab PO Q6H PRN PRN Reason: Pain Metoprolol Tartrate [Lopressor] 25 mg PO BID Meloxicam [Mobic] 7.5 mg PO BID PRN PRN Reason: Pain Aspirin 81 mg PO DAILY #0 chew Discharge Medication List metFORMIN HCL [Glucophage] 1,000 mg PO BID 11/21/17 [History] Fluticasone Nasal [place] [Flonase Nasal [place]] 2 spr EA NOSTRIL DAILY 01/23/20 [History] Oxybutynin Chloride [Ditropan] 2.5 mg PO BID 01/23/20 [History] Atorvastatin [Lipitor] 40 mg PO HS #30 tab 01/25/20 [Rx] Losartan [Cozaar] 50 mg PO DAILY #30 tab 01/25/20 [Rx] HYDROcodone/APAP 7.5-325MG [Wever 7.5-325] 1 tab PO Q6H PRN 01/29/21 [History] Meloxicam [Mobic] 7.5 mg PO BID PRN 01/29/21 [History] Metoprolol Tartrate [Lopressor] 25 mg PO BID 01/29/21 [History] Ascorbic Acid [Vitamin C] 500 mg PO BID #30 tab 02/01/21 [Rx] Aspirin 81 mg PO DAILY #0 chew 02/01/21 [Rx] Cholecalciferol [Vitamin D3 (25 Mcg = 1000 Iu)] 25 mcg PO DAILY #30 tablet 02/01/21 [Rx] Clopidogrel [Plavix] 75 mg PO DAILY #30 tab 02/01/21 [Rx] Zinc Sulfate [Orazinc] 220 mg PO DAILY #30 cap 02/01/21 [Rx] guaiFENesin-DM 100-10MG/5ML [Robitussin DM] 10 ml PO Q6H PRN #200 ml 02/01/21 [Rx] Follow up Appointment(s)/Referral(s): Alexsander García MD [Primary Care Provider] - 1-2 days (Office will call with appt. ) [facility], [NON-STAFF] - Patient Instructions/Handouts: Coronavirus Disease 2019 (COVID-19), Urinary Retention in Men (ED), Fall Prevention for Older Adults (ED), Weakness (ED) Discharge Disposition: HOME WITH HOME HEALTH SERVICES
[2021-02-01 15:43] VITALS: BP 120/56; PULSE 95; TEMP 98.6
== END 2021-02-01 17:10 | disposition home health service (06) | DRG 177 ==
LOC: EC 12:50 → 3SCARD 16:21
PROVIDERS: ADMIT Internal Medicine; ATTEND Internal Medicine
PROC: 3E0330M Introduction of Antineoplastic, Monoclonal Antibody, into Peripheral Vein, Percutaneous Approach (ICD-10-PCS; principal; 2021-01-29)
DX: U07.1 COVID-19 (principal); J12.82 Pneumonia due to coronavirus disease 2019; J44.0 Chronic obstructive pulmonary disease with (acute) lower respiratory infection; E87.1 Hypo-osmolality and hyponatremia; Z95.0 Presence of cardiac pacemaker; Z86.73 Personal history of transient ischemic attack (TIA), and cerebral infarction without residual deficits; G89.29 Other chronic pain; M54.5 Low back pain; R27.0 Ataxia, unspecified; Z79.82 Long term (current) use of aspirin; Z79.1 Long term (current) use of non-steroidal anti-inflammatories (NSAID); E11.9 Type 2 diabetes mellitus without complications; I10 Essential (primary) hypertension; M19.90 Unspecified osteoarthritis, unspecified site; Z87.891 Personal history of nicotine dependence; Z82.49 Family history of ischemic heart disease and other diseases of the circulatory system; Z96.653 Presence of artificial knee joint, bilateral; E86.0 Dehydration; J61 Pneumoconiosis due to asbestos and other mineral fibers; Z87.442 Personal history of urinary calculi; I35.0 Nonrheumatic aortic (valve) stenosis; R29.6 Repeated falls; R33.9 Retention of urine, unspecified; Z79.4 Long term (current) use of insulin
CPT/HCPCS: 36415; 70450; 71046; 72170; 80048; 80053; 81001; 82550; 82607; 82746; 83036; 83605; 83615; 83735; 83880; 84484; 85025; 85379; 85610; 85730; 86140; 87635; 93005; 96360; 96361; 99285

== ENCOUNTER → 2023-03-08 | Outpatient (CLI) | payer MEDICARE ==
--- NOTE | 2023-03-08 14:05 | CT ---
EXAMINATION TYPE: CT lumbar spine wo con CT DLP: 1451.40 mGycm, Automated exposure control for dose reduction was used. DATE OF EXAM: 03/08/2023 1:23 PM COMPARISON: 11/21/2017. CLINICAL INDICATION:Male, 82 years old with history of M51.26; PHH, low back pain TECHNIQUE: Multiple axial images were obtained from the midportion of T11 through the sacroiliac dontae nts. Soft tissue and bone windows in coronal and sagittal planes were obtained and reviewed. Contrast used: none. Oral contrast used: none. FINDINGS: Alignment: There are 5 lumbar type vertebral bodies within normal alignment. Bone: No evidence of fracture is identified. Multilevel degeneration changes throughout the spine wi th osteophyte formation, disc space narrowing and facet joint arthropathy. There is pseudoarthrosis of the spinous processes throughout the lower spine. Bridging osteophytes of the sacroiliac joints bilaterally. Discs: T12-L1: No spinal canal or neural foraminal stenosis is identified. L1-L2: No spinal canal or neural foraminal stenosis is identified. L2-L3: No spinal canal or neural foraminal stenosis is identified. L3-L4: No spinal canal or neural foraminal stenosis is identified. L4-L5: No spinal canal or neural foraminal stenosis is identified. L5-S1: No spinal canal or neural foraminal stenosis is identified. Other: The gallbladder surgically absent. Plaquing along the left diaphragm with 2 of the larger area s measuring 25 x 15 and 23 x 12 mm. IMPRESSION: 1. No evidence for spinal fracture. 2. Moderate multilevel disc degeneration changes. The neural foramen and spinal canal appear patent. 3. Baastrup's disease. 4. Bilateral sacroiliac joint bridging osteophytes.
== END | disposition home or self-care (01) ==
LOC: RADCTMAIN 13:01
PROVIDERS: ATTEND Psychiatry & Neurology Neurology
DX: M51.26 Other intervertebral disc displacement, lumbar region (principal); M51.36 Other intervertebral disc degeneration, lumbar region; M48.26 Kissing spine, lumbar region; M53.3 Sacrococcygeal disorders, not elsewhere classified
CPT/HCPCS: 72131